=== PATIENT | male | born 1940 | race Caucasian/White ===

== ENCOUNTER 2023-04-26 12:00 | Outpatient (RCR) | payer MEDICARE, SELFPAY | END 2023-04-26 13:01 | disposition home or self-care (01) | LOC: HO.PT 12:00 | PROVIDERS: PCP Internal Medicine; Visit Provider Nurse Practitioner Adult Health | DX: M25.551 Pain in right hip (principal); M25.552 Pain in left hip | CPT/HCPCS: 97110; 97140; 97161 ==

== ENCOUNTER 2024-11-19 15:38 | Outpatient (AMB) | payer MEDICARE, SELFPAY ==
--- NOTE | 2024-11-19 15:38 | A.OFFPC_ITS ---
Vital Signs 11/19/24 15:41 Height 5 ft 10 in Weight 184 lb BMI 26.4 BP 134/76 Respiration 14 Pulse 72 Pulse Source Pulse Oximeter Temp 97.8 F Temp Source Temporal Artery Scan Pulse Oximetry (%) 97 Oxygen Delivery Method Room Air Intake Visit Reasons: 6 month follow up Stakes Player Required: No Accompanied by: Self / Same As Patient Allergies Sulfa (Sulfonamide Antibiotics) Allergy (Mild, Verified 11/19/24 15:45) Rash Tobacco use date assessed: 11/19/24 Fall risk assessment: 1 Fall in past year Last assessed Fall Risk: 11/19/24 Dental Screening Dental Screen Date: 11/19/24 Did you have a dental visit in the last 12 months?: Yes Did you have a dental problem in the last 6 months where you did not have access to dental care?: No Was dental information given to patient?: Patient has dentist [facility] Medical History (Updated 11/19/24 @ 16:10 by Jere Aparicio MD) Insomnia Hyperlipidemia Prostate cancer Surgical History History of colonoscopy (~05/23/14) Family History (Updated 11/19/24 @ 15:39 by LAMONTE Mcfarlane) Father No problems noted. Mother No problems noted. Social History (Updated 11/19/24 @ 15:48 by LAMONTE Mcfarlane) Housing: Condominium Alcohol intake: current Alcohol intake frequency: does not drink Patient Tobacco Use Status: Never used Tobacco service: No Current occupational status: retired Cognitive needs: No Hearing needs: Yes (b/l hearing aids) Vision needs: Yes (reading glasses) Questionnaire PHQ-9 Over the last 2 weeks, how often have you been bothered by any of the following problems? 1. Little interest or pleasure in doing things: not at all 2. Feeling down, depressed, or hopeless: not at all 3. Trouble falling or staying asleep, or sleeping too much: not at all 4. Feeling tired or having little energy: not at all 5. Poor appetite or overeating: not at all 6. Feeling bad about yourself - or that you are a failure or have let yourself or your family down: not at all 7. Trouble concentrating on things, such as reading the newspaper or watching television: not at all 8. Moving or speaking so slowly that other people could have noticed. Or the opposite - being so fidgety or restless that you have been moving around a lot more than usual: not at all 9. Thoughts that you would be better off or of hurting yourself in some way: not at all Total score: 0 Source: Developed by Drs. Yrn Guajardo, Melida Hernandez, Brett Hughes and colleagues, with an educational susana from [email or web address]. Thrive Questionnaire Date Thrive assessed: 11/19/24 I am a: Patient What is your living situation today?: I have a steady place to live Within the past 12 months, did the food you bought not last and you didn't have the money to get more?: Never true Within the past 12 months, did you worry whether your food would run out before you got money to buy more?: Never true Do you have trouble paying for medicines?: No Do you have trouble getting transportation to medical appointments?: No Do you have trouble paying your heating and electricity bill?: No Do you have trouble taking care of your child, family member or friend?: No Do you have trouble with day-to-day activities such as bathing, preparing meals, shopping, managing finances, etc.?: No Are you currently unemployed and looking for a job?: No Are you interested in more education?: No Please select the resources that you would like help with: None THRIVE Score: 0 AUDIT C Alcohol Use Questionnaire (AUDIT-C) 1. How often do you have a drink containing alcohol?: Never 3. How often do you have six or more drinks on one occasion?: Never Total Score: 0 ALPA-7 AMB Questionnaire ALPA-7 Date ALPA - 7 assessed: 11/19/24 Feeling nervous, anxious, or on edge: 0 = Not at all Not being able to stop or control worryin = Not at all Worrying too much about different things: 0 = Not at all Trouble relaxin = Not at all Being so restless that it is hard to sit still: 0 = Not at all Becoming easily annoyed or irritable: 0 = Not at all Feeling afraid as if something awful might happen: 0 = Not at all Total ALPA-7 score (0-4 normal; 5-9 mild; 10-14 moderate; 15-21 severe): 0 Source: Developed by Drs. Yrn Guajardo, Melida Hernandez, Brett Hughes and colleagues, with an educational susana from [email or web address]. Physical exam (Primary Care) Vital Signs: Last Vital Signs Temp 97.8 F 11/19/24 15:41 Pulse 72 11/19/24 15:41 Resp 14 11/19/24 15:41 BP 134/76 11/19/24 15:41 Pulse Ox 97 11/19/24 15:41 Oxygen Delivery Method Room Air 11/19/24 15:41 BMI result Body Mass Index 26.4 Tobacco/Smoking Status: Tobacco use Status Tobacco use date assessed 11/19/24 11/19/24 15:40 Patient Tobacco Use Status Never used Tobacco 11/19/24 15:48 PHQ-9: PHQ-9 Score PHQ-9: Total score 0 11/19/24 15:48 Thrive Assessment: Date of Thrive Assessment Date Thrive assessed 11/19/24 11/19/24 15:40 Coding Level of Care Code New Pt Level 4 (63982) Complex EM visit Add On G2211 Diagnoses Prostate cancer C61 Hyperlipidemia E78.5 Insomnia G47.00 Assessment & Plan Assessment & Plan (1) Prostate cancer: Code(s): C61 - Malignant neoplasm of prostate Category: Medical Plan: Patient sees a urologist at [facility] in [place]. Continue current meds (2) Hyperlipidemia: Code(s): E78.5 - Hyperlipidemia, unspecified Category: Medical Plan: BW ordered, based on results, meds will be adjusted. (3) Insomnia: Code(s): G47.00 - Insomnia, unspecified Category: Medical Plan: Continue on Temazepam Plan History of Present Illness The patient is an 84-year-old male presenting with a recent acute upper respiratory infection, believed to be a cold affecting the sinuses and lungs, which commenced approximately one week ago. He indicates that the symptoms have been slowly improving without progression to more severe respiratory compromise. Temazepam has been used intermittently to manage sleep disturbances associated with the infection. The patient's past medical history includes hyperlipidemia, managed with ezetimibe, and benign prostatic hyperplasia, treated with a procedure by [employer]. Post-procedure, some relief was noted though medication continuation is necessary. Consequent to his BPH, he continues with tamsulosin to manage symptoms. Cataract surgery was previously performed approximately a year prior, resulting in resolved vision issues. Social History - Retired mechanical service representative, previously self-employed - Regular daily exercise routine, including walking - Engages in grocery shopping independently - Resides with spouse, three children reside at a distance - Does not smoke - Enjoys using computers for leisure, watching movies on a large screen - Participates in recreational shooting Review of Systems - Respiratory: Reports sinus and lung congestion, improving slowly - Neurological: Denies difficulty with vision post-cataract surgery; reports good driving capabilities, including night driving - Urological: Reports stable urinary function post-procedural intervention, continues tamsulosin usage - General: Reports using temazepam for aiding sleep due to recent illness Physical Exam General: Cooperative and healthy appearing Nutritional Appearance: Well nourished Orientation/consciousness: Patient oriented x3 Limitations: No limitations Head: Normal to inspection General: Appearance normal, both eyes and all related structures Neck: Normal visual inspection Chest: Normal palpation of entire chest wall Respiratory: Crackly at the base ormal respiratory effort Neurology: Patient oriented x3 Results Plan The patient's acute upper respiratory infection is resolving, and current management does not require additional medication interventions. The patient's chronic conditions remain stable under the current medication regimen, with ezetimibe continued for hyperlipidemia and tamsulosin ongoing for benign prostatic hyperplasia. Blood work is recommended given the time since last testing. No further prescriptions are needed apart from health maintenance. Patient was informed and verbally consented to the use of an ambient scribe for clinic note documentation during this visit. Discussion Notes I explained that the patient's respiratory symptoms should resolve with conservative management and reassured him that his current medications are managing his chronic conditions well. Blood work will be ordered to assess his health status, and arrangements can be made within the local [facility] system. We discussed the importance of regular health check-ups and staying active as part of maintaining good health. I advised that temazepam usage should remain as needed, with no daily usage expected. Follow-up in six months was determined appropriate unless new concerns arise sooner. Patient Instructions - Continue current medications: ezetimibe and tamsulosin - Use temazepam sparingly for sleep as needed - Arrange for blood work within [facility] system - Monitor respiratory symptoms; anticipate improvement - Maintain regular exercise routine - Schedule follow-up in six months or sooner if needed - Call the pharmacy for prescription needs, which will notify me Orders: Orders Basic Metabolic Panel Today C61 - Malignant neoplasm of prostate, E78.5 - Hyperlipidemia, unspecified, G47.00 - Insomnia, unspecified Liver Panel Today C61 - Malignant neoplasm of prostate, E78.5 - Hyperlipidemia, unspecified, G47.00 - Insomnia, unspecified Lipid Panel Today C61 - Malignant neoplasm of prostate, E78.5 - Hyperlipidemia, unspecified, G47.00 - Insomnia, unspecified UA and rflx microscopic Today C61 - Malignant neoplasm of prostate, E78.5 - Hyperlipidemia, unspecified, G47.00 - Insomnia, unspecified Complete Blood Count no Diff Today C61 - Malignant neoplasm of prostate, E78.5 - Hyperlipidemia, unspecified, G47.00 - Insomnia, unspecified Thyroid Stimulating Hormone Today C61 - Malignant neoplasm of prostate, E78.5 - Hyperlipidemia, unspecified, G47.00 - Insomnia, unspecified
[2024-11-19 15:41] VITALS: BP 134/76; PULSE 72; RESP 14; TEMP 36.6; O2SAT 97; BMI 26.4
--- OUTSIDE RECORDS SUMMARY | 2024-11-19 18:27 | XMS_ITS | Clinical Summary ---
Author Organization [address] [place] [address] [place] [phone] Phone Care Team Providers Care Sprinkling System Installer Name Role Phone Yrn Calderon DO Primary Care Provider [phone] Allergies Active Allergy Reactions Criticality Noted Date Comments Sulfa (Sulfonamide Antibiotics) 09/21/2020 Other Reaction(s): rash, Rash/Dermatitis Bactrim Medications ezetimibe (ZETIA) 10 mg tablet Take 1 tablet (10 mg total) by mouth 1 (one) time each day. Active aspirin 81 mg EC tablet Take 1 tablet (81 mg total) by mouth 1 (one) time each day. Active tamsulosin (FLOMAX) 0.4 mg 24 hr capsule Take 0.4 mg by mouth daily. Take 30 mins after same meal every day. Active temazepam (RESTORIL) 15 mg capsule Take 15 mg by mouth at bedtime as needed. Active Active Problems Problem Noted Date Diagnosed Date Encounter for loop recorder at end of battery li fe 08/07/2024 Atrial flutter (CMS/HCC V24, CMS/HCC V28) 2020 Overview (07/16/2024): Paroxysmal atrial flutter and atrial fibrillation. Minimal burden. Implantable loop recorder showed 24 episodes lifelong but none within the past year. Chadsvasc is elevated based on history of carotid disease and age over 75. Last Assessment & Plan: This 83-year-old gentleman continues to have relatively brief episodes of self terminating atrial arrhythmias. I talked him at length about potentially using a beta-reuben or calcium channel reuben for rate control given some of these episodes can get as high as 170 bpm. I also talked about the pros and cons of anticoagulation. He is very much against using an oral anticoagulant due to prior history of hematoma formation in his leg was quite a difficult illness to get over. He is open to a watchman implant and certainly appears to be a good candidate having an elevated [id number] score of 4 for age and prior TIA and evidence of atrial fibrillation/flutter. I went through that procedure in detail discussing the complications and alternatives and he is going to take some literature and let me know if he wants to proceed. We will continue to use his implantable loop recorder to track the arrhythmia burden and will add rate control if he has either symptomatic episodes or more prolonged episodes of atrial fibrillation. Palpitations 02/10/2020 Overview (07/16/2024): Last Assessment & Plan: Minimal and well-tolerated. Chest pain 05/22/2018 Overview (07/16/2024): Last Assessment & Plan: Continues to get chest discomfort but his symptoms are unchanged. He recently had a normal nuclear stress test. If anything changes he should call us. Carotid artery occlusion 11/14/2017 Overview (07/16/2024): 2017 US-TO R; HIGH GRADE L-VASC SX Pure hypercholesterolemia 11/14/2017 Overview (07/16/2024): 06/2016 NUKE SL INF ISCH EF 55 Encounters Date Type Department Care Team Description 11/02/2024 12:15 AM EDT Ancillary Procedure [facility] Cardiology [facility] [address] [place] [address] 11/02/2024 Ancillary Procedure [facility] Cardiology [facility] [address] [place] [address] 11/01/2024 11:40 PM EDT Ancillary Procedure [facility] Cardiology [facility] [address] [place] [address] 11/01/2024 9:35 PM EDT Ancillary Procedure [facility] Cardiology [facility] - [address] [place] [address] 11/01/2024 7:25 PM EDT Ancillary Procedure [facility] - [address] [place] [address] 11/01/2024 4:45 PM EDT Ancillary Procedure [facility] - [address] [place] [address] 08/21/2024 Telephone [facility] - [address] [place] [address] Babar Pena MD Procedure (ILR Removal ) from Last 3 Months Social History Tobacco Use Types Packs/Day Years Used Date Smoking Tobacco: Never Smokeless Tobacco: Never Alcohol Use Standard Drinks/Week Comments Yes 0 (1 standard drink = 0.6 oz pur e alcohol) Sex and Gender Information Value Date Recorded Sex Assigned at Not on file Legal Sex Male 11:57 AM EST Gender Identity Not on file Sexual Orientation Not on file Obstetrics History Last Filed Vital Signs Vital Sign Reading Time Taken Comments Blood Pressure 128/60 08/06/2024 1:11 PM EST Pulse 64 08/06/2024 1:11 PM EST Temperature - - Respiratory Rate - - Oxygen Saturation 98% 08/06/2024 1:11 PM EST Inhaled Oxygen Concentration - - Weight 83.5 kg (184 lb) 08/06/2024 1:11 PM EST Height 180.3 cm (5' 11 ) 08/06/2024 1:11 PM EST Body Mass Index 25.66 08/06/2024 1:11 PM EST Plan of Treatment Health Maintenance Due Date Last Done Comments DTaP,Tdap,and Td Vaccines (1 - Tdap) 1959 RSV Immunization Adult Patients (1 - 1-dose 75+ series) 2015 COVID-19 Vaccine (3 - Pfizer risk series) 11/28/2020 10/31/2020, 09/07/2020 Depression Screening 06/28/2022 Falls Risk Assessment 06/28/2022 Medicare Annual Wellness Visit 06/28/2022 Social Influencers of Health Screening 06/28/2022 Influenza Vaccine (Season Ended) 2025 05/23/2023, 05/20/2021, 05/04/2020, Additional history exists Cholesterol Screening (Lipid Panel) 06/23/2029 06/23/2024, 05/10/2024, 05/25/2023 Pneumococcal Vaccine: 50+ Years Completed 01/06/2016, 09/22/2008 Zoster Vaccines Completed 03/18/2019, 01/10/2019 HIB Vaccines Aged Out No longer eligi ble based on patient's age to complete this topic HPV Vaccines Aged Out No longer eligi ble based on patient's age to complete this topic Hepatitis A Vaccines Aged Out No long er eligible based on patient's age to complete this topic Hepatitis B Vaccines Aged Out No long er eligible based on patient's age to complete this topic IPV Vaccines Aged Out No longer eligi ble based on patient's age to complete this topic MMR Vaccines Aged Out No longer eligi ble based on patient's age to complete this topic Meningococcal ACWY Vaccine Aged Out N o longer eligible based on patient's age to complete this topic Meningococcal B Vaccine Aged Out No l onger eligible based on patient's age to complete this topic RSV Immunization Patients Under 20 months Aged Out No longer eligible based on patient's age to complete this topic Varicella Vaccines Aged Out No longer eligible based on patient's age to complete this topic Medical Devices Implanted Type Area Machine Farmworker Device Identifier Shelf Expiration Date Model / Serial / Lot Medt-Card [id number] Implanted:09/28 (Quantity not on file) Cardiac Loop Recorder [employer] - CARDIAC RHYTH-CRDM [id number] / [id number] / Procedures Procedure Name Priority Date/Time Associated Diagnosis Comments CARDIAC DEVICE CHECK- REMOTE- MURJ Routine 11/02/2024 12:12 AM EDT CARDIAC DEVICE CHECK- REMOTE- MURJ Routine 11/01/2024 11:54 PM EDT CARDIAC DEVICE CHECK- REMOTE- MURJ Routine 11/01/2024 11:38 PM EDT CARDIAC DEVICE CHECK- REMOTE- MURJ Routine 11/01/2024 9:32 PM EDT CARDIAC DEVICE CHECK- REMOTE- MURJ Routine 11/01/2024 7:22 PM EDT CARDIAC DEVICE CHECK- REMOTE- MURJ Routine 11/01/2024 4:41 PM EDT LIPID PANEL Routine 05/25/2023 from Last 3 Months or Most Recently Relevant to Health Maintenance Results * Cardiac device check - Remote- MURJ (11/02/2024 12:12 AM EDT) Only the most recent of6 resultswithin the time period is included. Date Time Interrogation Session [id number] CV DEVICE CHECK Type Interrogation Session Remote CV DEVICE CHECK Implantable Pulse Generator Machine Farmworker MDT CV DEVICE CHECK Implantable Pulse Generator Type ILR CV DEVICE CHECK Implantable Pulse Generator Model [id number] CV DEVICE CHECK Implantable Pulse Generator Serial Number [id number] CV DEVICE CHECK Implantable Pulse Generator Implant Date [id number] CV DEVICE CHECK Battery Status Middle of Service CV DEVICE CHECK Atrial Tachy Statistic AT/AF [place] Percent 0.00 CV DEVICE CHECK Date of Service 2024-03-14 CV DEVICE CHECK Anatomical Region Laterality Modality Device Interroga tion 03/07/2024 12:0 5 AM EDT Impressions 03/14/2024 9:31 AM EDT Normal Remote: With Events * Events or Alerts: 1- pt symptom report for AF/PAC's, similar to previous reports; no OAC per AVELINA note (JPM 8.6.24) * This is a normal remote diagnostic device check * Battery data was reviewed * Battery status: OK, * Presenting rhythm reviewed * Heart Rate Histograms reviewed Narrative Procedure Note Nury Barksdale NP - 11/02/2024 IMPRESSION: Normal Remote: With Events * Events or Alerts: 1- pt symptom report for AF/PAC's, similar toprevious reports; no OAC per AVELINA note (JPM 8.6.24) * This is a normal remote diagnostic device check * Battery data was reviewed * Battery status: OK, * Presenting rhythm reviewed * Heart Rate Histograms reviewed Nury Barksdale MOTOR CARRIER INSPECTOR CV IMPLANTABLE CARDIAC DEVIC E PROCEDURES Final Result * Lipid panel (05/25/2023) LDL/HDL Ratio 0 Comment:abstracted, no inter pretation Triglycerides 0 mg/dL Comment:abstracted, no inter pretation Cholesterol 0 mg/dL Comment:abstracted, no inter pretation HDL 0 mg/dL Comment:abstracted, no inter pretation LDL Cholesterol 0 mg/dL Comment:abstracted, no inter pretation Blood Venous blood specimen / Unknown us Historical Provider LAB BLOOD ORDERABLES Tamanna l Result from Last 3 Months or Most Recently Relevant to Health Maintenance Insurance [employer] - [place] MEDICARE ADVANTAGE Care Teams Sprinkling System Installer Relationship Specialty Start Date End Date Yrn Calderon DO [address] [place] [phone] PCP - General Internal Medicine 08/26/20
--- OUTSIDE RECORDS SUMMARY | 2024-11-19 18:27 | XMS_ITS | Encounter Summary ---
Author Organization [facility] Address [address] [place] [phone] Phone Care Team Providers Care Attendance Clerk Name Role Phone Yrn Calderon DO Primary Care Provider Jerome Jackson MD Unavailable Yrn Calderon DO Unavailable Lalo Hills MD Unavailable [phone] Encounter Details Date Type Department Care Team (Late st Contact Info) Description 06/22/2024 Procedure [facility] Scan - [address] [address] Social History Tobacco Use Types Packs/Day Years Used Date Smoking Tobacco: Never Smokeless Tobacco: Never Alcohol Use Standard Drinks/Week Comments Not Currently 0 (1 standard drink = 0.6 oz pur e alcohol) Education Answer Date Recorded Are you interested in more education? Not on tatiana e 12/12/2022 Are you concerned about learning? Not on file 12/12/2022 No 12/12/2022 No 12/12/2022 Food Answer Date Recorded Within the past 6 months we worried whether our food would run out before we got money to buy more. Never True 06/23/2024 Within the past 6 months the food we bought just didn't last and we didn't have enough money to get more. Never True Residential Stability Answer Date Recor ded What is your housing situation today? I have antony sing 06/23/2024 How many times have you move d in the past 12 months? Zero (I did not move) 06/23/2024 Paying for Meds Answer Date Recorded Do you have trouble paying for medicines? No 06/23/2024 Paying Utility Bills Answer Date Record ed Do you have trouble paying your heating or elect ricity bill? No 06/23/2024 Transportation Answer Date Recorded Has the lack of transportati on kept you from medical appointments or from getting medications? No 06/23/2024 Digital Access Answer Date Recorded No 06/23/2024 Yes 06/23/2024 Do you have reliable internet access at home? Ye s 06/23/2024 Do you have a device (e.g., phone, tablet, computer) with a working camera? Yes 06/23/2024 Intimate Partner Violence Answer Date R ecorded Are you denied basic needs s uch as food, clothing, or medical care? No 06/22/2024 In the past 12 months have y ou been in a relationship with a person who hurts, threatens, or tries to control you? No 06/22/2024 Are you denied basic needs s uch as food, clothing, or medical care? No 06/22/2024 In the past 12 months have y ou been in a relationship with a person who hurts, threatens, or tries to control you? No 06/22/2024 Sex and Gender Information Value Date Recorded Sex Assigned at Male 11/30/2019 9:45 AM EDT Gender Identity Male 11/30/2019 9:45 AM EDT Sexual Orientation Not on file documented as of this encounter Plan of Treatment Upcoming Encounters Date Type Department Care Team (Late st Contact Info) Description 01/27/2025 10:00 AM EDT Office Visit [facility] [address] [place] [address] [address] Floor, [address] [place] [address] Yrn Sanchez MD, MS [address] [facility], [address] [place] [phone] documented as of this encounter Visit Diagnoses Not on filedocumented in this encounter Care Teams Attendance Clerk Relationship Specialty Start Date End Date Yrn Calderon DO [address] [place] [phone] PCP - General Internal Medicine 01/15/15 Jerome Jackson MD [address] [place] [address], [facility] [address] [place] [address] [email or web address] Historical LMR Provider 05/18/17 Yrn Calderon DO [address] [place] [id number] Historical LMR Provider 05/18/17 Lalo Hills MD [address] [place] [phone] [email or web address] Historical LMR Provider 05/18/17 documented as of this encounter Additional Source Comments The information contained in this document represents components of the legal health record. It is not the complete legal health record[facility]
--- OUTSIDE RECORDS SUMMARY | 2024-11-19 18:27 | XMS_ITS | Encounter Summary ---
Author Organization [facility] Address [address] [place] [address] Phone Care Team Providers Care Structural Steel Worker Apprentice Name Role Phone Yrn Calderon DO Primary Care Provider Jerome Jackson MD Unavailable Yrn Calderon DO Unavailable Lalo Hills MD Unavailable [phone] Reason for Referral * MRI/CAT Scan - Closed Specialty Diagnoses / Procedures Referred By Contac t Referred To Contact Radiology Diagnoses Bilateral hip pain Prostate cancer Procedures NM Bone Scan NM Bone Scan Yrn Calderon DO [address] [place] [address] Referral ID Status Reason Start Date Expiration Date Visits Re quested Visits Authorized [id number] Closed 06/08/2022 06/08/2023 2 2 Encounter Details Date Type Department Care Team (Late st Contact Info) Description 06/08/2022 Ancillary Orders Virtual Department [address] [place] [address] Yrn Calderon DO [address] [place] [address] Bilateral hip pain; Prostate cancer Social History Tobacco Use Types Packs/Day Years [...] Description 01/27/2025 10:00 AM EDT Office Visit [facility] [address] [facility] 3rd Floor, [address] [place] [address] Yrn Sanchez MD, MS 22 [facility], [address] [place] [address] [email or web address] documented as of this encounter Results * NM BONE SCAN WHOLE BODY (06/22/2022 12:50 PM EST) Anatomical Region Laterality Modality Shoulder Right, Shoulder Lef t, Arm Left, Arm Right, Elbow Left, Elbow Right, Forearm Left, Forearm Right, Wrist Right, Wrist Left, Hand Left, Hand Right, Hip Left, Hip Right, Hip Bilateral, Thigh Left, Thigh Right, Knee Left, Knee Right, Knee Bilateral, Leg Left, Leg Right, Ankle Left, Ankle Right, Foot Left, Foot Right, Pelvis Nucle ar Medicine 06/27/2022 8:13 AM EST Impressions 06/27/2022 8:31 AM EST No scintigraphic findings suspicious for osseous metastatic disease. No explanation for hip pain. Narrative 06/27/2022 8:31 AM EST EXAM: NM BONE SCAN WHOLE BODY Radionuclide bone scan: HISTORY: Bilateral hip pain, prostate malignancy. TECHNIQUE: ?? 26 mCi technetium 99m MDP was injected. ??Scans were performed more than two hours later. ??Whole body images were acquired and appropriate spot views were obtained based upon review of the whole body images. COMPARISON: CT angiogram abdomen and pelvis 06/17/2021, pelvis x-ray 06/21/2022. FINDINGS: ?? There are no scintigraphic findings suspicious for osseous metastatic disease. Periarticular foci of uptake at the medial aspect of each wrist in the region of the right first MTP joint are in a distribution typical for degenerative change. Renal and soft tissue uptake are within expected range. Physiologic activity within the bladder. Procedure Note Agustín Ponce MD - 06/27/2022 EXAM: NM BONE SCAN WHOLE BODY Radionuclide bone scan: HISTORY: Bilateral hip pain, prostate malignancy. TECHNIQUE: 26 mCi technetium 99m MDP was injected. Scans were performed more thantwo hours later. Whole body images were acquired and appropriate spotviews were obtained based upon review of the whole body images. COMPARISON: CT angiogram abdomen and pelvis 06/17/2021, pelvis x-ray06/21/2022. FINDINGS: There are no scintigraphic findings suspicious for osseous metastaticdisease. Periarticular foci of uptake at the medial aspect of each wrist in theregion of the right first MTP joint are in a distribution typical fordegenerative change. Renal and soft tissue uptake are within expected range. Physiologicactivity within the bladder. IMPRESSION: No scintigraphic findings suspicious for osseous metastatic disease. Noexplanation for hip pain. Yrn Calderon DO G NM BONE SCAN * XR PELVIS AP INLET AND OUTLET 3 VIEWS (06/22/2022 11:33 AM EST) Anatomical Region Laterality Modality Pelvis Computed Radiogr aphy 06/22/2022 11:5 5 AM EST Impressions 06/22/2022 11:57 AM EST No ischial lesion or other significant bony abnormality identified to account for patient's symptoms. Narrative 06/22/2022 11:57 AM EST XR PELVIS AP INLET AND OUTLET 3 VIEWS COMPARISON: 06/17/2021 CT FINDINGS: AP, inlet, and outlet views were obtained. No fracture, subluxation, or other acute bony abnormality identified. No evidence of cortical erosions. 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 Multiple surgical coils demonstrated in the pelvis. No significant sacroiliac pathology. Procedure Note Anselmo Muñiz MD - 06/22/2022 XR PELVIS AP INLET AND OUTLET 3 VIEWS COMPARISON: 06/17/2021 CT FINDINGS: AP, inlet, and outlet views were obtained. No fracture, subluxation, orother acute bony abnormality identified. 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 Multiple surgicalcoils demonstrated in the pelvis. No significant sacroiliac pathology. IMPRESSION: No ischial lesion or other significant bony abnormality identified toaccount for patient's symptoms. Yrn aClderon DO IMG XR PELVIS documented in this encounter Visit Diagnoses Diagnosis Bilateral hip pain Pain in joint, pelvic region and thigh Prostate cancer Malignant neoplasm of prostate Bilateral hip pain Pain in joint, pelvic region and thigh Prostate cancer Malignant neoplasm of prostate Bilateral hip pain Pain in joint, pelvic region and thigh Prostate cancer Malignant neoplasm of prostate documented in this encounter Care Teams Structural Steel Worker Apprentice Relationship Specialty Start Date End Date Yrn Calderon DO [address] [place] [address] PCP - General Internal Medicine 01/15/15 Jerome Jackson MD [address] [place] [address], [facility] [address] [place] [address] [email or web address] Historical LMR Provider 05/18/17 Yrn Calderon DO [address] [place] [address] Historical LMR Provider 05/18/17 Lalo Hills MD [address] [place] [address] [email or web address] Historical LMR Provider 05/18/17 documented as of this encounter Additional Source Comments The information contained in this document represents components of the legal health record. It is not the complete legal health record.[facility]
--- OUTSIDE RECORDS SUMMARY | 2024-11-19 18:27 | XMS_ITS | Encounter Summary ---
Author Organization [facility] Address [address] [employer] [facility] [address] [place] [address] Phone Care Team Providers Care Box Person Name Role Phone Yrn Calderon DO Primary Care Provider Jerome Jackson MD Unavailable Yrn Calderon DO Unavailable [phone] Lalo Hills MD Unavailable [phone] Encounter Details Date Type Department Care Team (Late st Contact Info) Description 06/22/2024 Procedure Pass [facility], [address] [address] Social History Tobacco Use Types Packs/Day Years [...] Description 01/27/2025 10:00 AM EDT Office Visit [facility] [address] [place] [address] 3rd Floor, [address] [place] [address] Yrn Sanchez MD, MS 22 [facility], [address] [address] documented as of this encounter Visit Diagnoses Not on filedocumented in this encounter Care Teams Box Person Relationship Specialty Start Date End Date Yrn Calderon DO [address] [place] [address] PCP - General Internal Medicine 01/15/15 Jerome Jackson MD [address] [place] [address], [facility] [address] [place] [address] [email or web address] Historical LMR Provider 05/18/17 Yrn Calderon DO [address] [place] [address] Historical LMR Provider 05/18/17 Lalo Hills MD [address] [place] [address] [email or web address] Historical LMR Provider 05/18/17 documented as of this encounter Additional Source Comments The information contained in this document represents components of the legal health record. It is not the complete legal health record.[facility]
--- OUTSIDE RECORDS SUMMARY | 2024-11-19 18:27 | XMS_ITS | Encounter Summary ---
Author Organization [facility] Address [address] [facility] [address] [place] [address] Phone Care Team Providers Care Abseiling Instructor Name Role Phone Yrn Calderon DO Primary Care Provider Jerome Jackson MD Unavailable Yrn Calderon DO Unavailable [phone] Baljeet Alexander MD Unavailable Dianna London MD Unavailable [phone] Lalo Hills MD Unavailable [phone] Encounter Details Date Type Department Care Team (Late st Contact Info) Description 06/17/2021 Procedure Pass [facility], Ct Scan - [address] [address] Social History Tobacco Use Types Packs/Day Years [...] Description 01/27/2025 10:00 AM EDT Office Visit [facility] [address] [place] [address] 3rd Floor, [address] [place] [address] Yrn Sanchez MD, MS [address] [address] documented as of this encounter Visit Diagnoses Not on filedocumented in this encounter Care Teams Abseiling Instructor Relationship Specialty Start Date End Date Yrn Calderon DO [address] [place] [address] PCP - General Internal Medicine 01/15/15 Jerome Jackson MD [address] [address] Historical LMR Provider 05/18/17 Yrn Calderon DO [address] [place] [address] Historical LMR Provider 05/18/17 Baljeet Alexander MD [address] [address] [email or web address] Historical LMR Provider 05/18/17 08/07/21 Dianna London MD [address] [place] [address] [facility], [place] [address] Historical LMR Provider 05/18/17 08/07/21 Lalo Hills MD [address] [place] [address] [email or web address] Historical LMR Provider 05/18/17 documented as of this encounter Additional Source Comments The information contained in this document represents components of the legal health record. It is not the complete legal health record.[facility]
--- OUTSIDE RECORDS SUMMARY | 2024-11-19 18:27 | XMS_ITS | Encounter Summary ---
Author Organization [facility] Address Formerly [facility], [facility] [address] [place] [address] Phone Care Team Providers Care Toddler Caregiver Name Role Phone Yrn Calderon DO Primary Care Provider [phone] Jerome Jackson MD Unavailable Yrn Calderon DO Unavailable Baljeet Alexander MD Unavailable [phone] Dianna London MD Unavailable [phone] Lalo Hills MD Unavailable [phone] Encounter Details Date Type Department Care Team (Latest Contact Info) Description 10/16/2017 Transcribe Orders [facility] [address] [place] [address] Yrn Calderon DO [address] [place], [place] [phone] Elevated PSA (Primary Dx) Social History Tobacco Use Types Packs/Day Years Used Date Smoking Tobacco: Never Alcohol Use Standard Drinks/Week Comments Not Asked 0 (1 standard drink = 0.6 oz pur e alcohol) Sex and Gender Information Value Date Recorded Sex Assigned at Male 11/30/2019 9:45 AM EDT Gender Identity Male 11/30/2019 9:45 AM EDT Sexual Orientation Not on file documented as of this encounter Plan of Treatment Upcoming Encounters Date Type Department Care Team (Late st Contact Info) Description 01/27/2025 10:00 AM EDT Office Visit [facility] [address] 3rd Floor, [address] [place] [address] Yrn Sanchez MD, MS 22 [facility], [address] [place] [address] [email or web address] documented as of this encounter Results * (ABNORMAL) PSA, free and total (10/16/2017 12:04 PM EDT) PSA, TOTAL 15.4(H) <=6.5 ng/mL [facility] FREE PSA 2.8 ng/mL [facility] FREE/TOT PSA RATIO SEE NOTE ratio [facility] Comment: (NOTE) Ratio not calculated because clinical usefulness is not ?? defined except in range of total PSA 4.0-10.0 ng/mL. ADDITIONAL INFORMATION The testing method is an electrochemiluminescence assay manufactured by [employer] and performed on the Modular or Vel system. Values obtained with different assay methods or kits may be different and cannot be used interchangeably. Test results cannot be interpreted as absolute evidence for the presence or absence of malignant disease. Blood 10/16/2017 12:0 4 PM EDT 10/16/2017 12:07 PM EDT Yrn Calderon DO LAB BLOOD ORDERABLES [facility] [address] [place] [address] documented in this encounter Visit Diagnoses Diagnosis Elevated PSA- Primary Elevated prostate specific antigen (PSA) documented in this encounter Care Teams Toddler Caregiver Relationship Specialty Start Date End Date Yrn Calderon DO [address] [place] [address] PCP - General Internal Medicine 01/15/15 Jerome Jackson MD [address] [place] [address], [address] [place] [address] [place] [address] [email or web address] Historical LMR Provider 05/18/17 Yrn Calderon DO [address] [place] [address] Historical LMR Provider 05/18/17 Baljeet Alexander MD [address] [place] [address] [address] [place] [address] [email or web address] Historical LMR Provider 05/18/17 08/07/21 Dianna London MD [address] [place] [address] [facility], [place] [address] [email or web address] Historical LMR Provider 05/18/17 08/07/21 Lalo Hills MD [address] [place] [address] [email or web address] Historical LMR Provider 05/18/17 documented as of this encounter Additional Source Comments The information contained in this document represents components of the legal health record. It is not the complete legal health record.[facility]
--- OUTSIDE RECORDS SUMMARY | 2024-11-19 18:27 | XMS_ITS | Encounter Summary ---
Author Organization [facility] Address [address] [place] [address] Phone Care Team Providers Care Machine Cloth Measurer Name Role Phone Yrn Calderon DO Primary Care Provider Jerome Jackson MD Unavailable Yrn Calderon DO Unavailable Baljeet Alexander MD Unavailable Dianna London MD Unavailable Lalo Hills MD Unavailable [phone] Encounter Details Date Type Department Care Team (Latest Contact Info) Description 02/26/2021 Transcribe Orders Virtual Department [address] [place] [address] Ester [place]hour[place] [address] [address] [email or web address] Hydrocele, unspecified hydrocele type (Primary Dx) Social History Tobacco Use Types [...] Description 01/27/2025 10:00 AM EDT Office Visit [facility] [address] [place] [address] 3rd Floor, [address] [place] [address] Yrn Sanchez MD, MS 22 [facility], [address] [address] [email or web address] documented as of this encounter Visit Diagnoses Diagnosis Hydrocele, unspecified hydrocele type- Primary documented in this encounter Care Teams Machine Cloth Measurer Relationship Specialty Start Date End Date Yrn Calderon DO [address] [place] [address] PCP - General Internal Medicine 01/15/15 Jerome Jackson MD [address] [place] [address] [email or web address] Historical LMR Provider 05/18/17 Yrn Calderon DO [address] [place] [address] Historical LMR Provider 05/18/17 Baljeet Alexander MD [address] [place] [address] [email or web address] Historical LMR Provider 05/18/17 08/07/21 Dianna London MD [address] [place] [address] [facility], [place] [address] [email or web address] Historical LMR Provider 05/18/17 08/07/21 Lalo Hills MD [address] [place] [address] [email or web address] Historical LMR Provider 05/18/17 documented as of this encounter Additional Source Comments The information contained in this document represents components of the legal health record. It is not the complete legal health record.[facility]
--- OUTSIDE RECORDS SUMMARY | 2024-11-19 18:27 | XMS_ITS | Encounter Summary ---
Author Organization [facility] Address [address] [employer] [facility] [address] [place] [address] Phone Care Team Providers Care Spray Mixer Name Role Phone Yrn Calderon DO Primary Care Provider Jerome Jackson MD Unavailable Yrn Calderon DO Unavailable [phone] Baljeet Alexander MD Unavailable [phone] Dianna London MD Unavailable Lalo Hills MD Unavailable [phone] Encounter Details Date Type Department Care Team (Late st Contact Info) Description 05/26/2020 Procedure Pass [facility] [place] [id number] Social History Tobacco Use Types Packs/Day Years [...] Description 01/27/2025 10:00 AM EDT Office Visit [facility] [address] [place] [address] 3rd Floor, [address] [place], [place] [phone] Yrn Sanchez MD, MS 22 [facility], [address] [place] [address] [email or web address] documented as of this encounter Visit Diagnoses Not on filedocumented in this encounter Care Teams Spray Mixer Relationship Specialty Start Date End Date Yrn Calderon DO [address] [place] [address] PCP - General Internal Medicine 01/15/15 Jerome Jackson MD [address] [place] [address], [address] [place] [address] [email or web address] Historical LMR Provider 05/18/17 Yrn Calderon DO [address] [place] [address] Historical LMR Provider 05/18/17 Baljeet Alexander MD [address] [place] [address] [address] [place] [address] [email or web address] Historical LMR Provider 05/18/17 08/07/21 Dianna London MD [address] [place] [address] [facility], [facility] [place] [address] Historical LMR Provider 05/18/17 08/07/21 Lalo Hills MD [address] [place] [address] [email or web address] Historical LMR Provider 05/18/17 documented as of this encounter Additional Source Comments The information contained in this document represents components of the legal health record. It is not the complete legal health record.[facility]
--- OUTSIDE RECORDS SUMMARY | 2024-11-19 18:27 | XMS_ITS | Clinical Summary ---
Author Organization [facility] Address [address] [facility] [address] [place] [address] Phone Care Team Providers Care Fishing Captain Name Role Phone Yrn Calderon DO Primary Care Provider Jerome Jackson MD Unavailable [phone] Yrn Calderon DO Unavailable [phone] Lalo Hills MD Unavailable [phone] Allergies Active Allergy Reactions Criticality Noted Date Comments Fluoxetine Anxiety Low 07/27/2022 Other reaction(s): anxiety Sulfa (Sulfonamide Antibiotics) 02/04/2015 Medications Medication Sig Dispensed Refills Start Date End Date Status temazepam (RESTORIL) 15 mg capsule Take 15 mg by mouth nightly as needed for sleep. Active aspirin 81 mg chewable tablet Take 1 tablet by mouth daily. Active tamsulosin (FLOMAX) 0.4 mg Cap Take 0.4 mg by mouth daily. 12/09/2019 Active ezetimibe (ZETIA) 10 mg tablet 01/25/2023 Active Active Problems Problem Noted Date Diagnosed Date Vertigo 06/22/2024 Assessment & Plan (06/23/2024 10:51 AM EST): MRI negative for acute abnormality, moderate chronic small vessel ischemic changes seen and few scattered peripheral microhemorrhages nonspecific in etiology, redemonstrated chronically occluded right ICA Symptoms markedly improved overnight Assessment & Plan (06/23/2024 9:55 AM EST): MRI negative for acute abnormality, moderate chronic small vessel ischemic changes seen and few scattered peripheral microhemorrhages nonspecific in etiology, redemonstrated chronically occluded right ICA Symptoms markedly improved overnight [facility] neurology recommended MRI, aspirin. If MRI positive recommended dual antiplatelet therapy. Will follow-up with [facility] neurologist today for further advice and diagnostic opinion and await PT and OT consults Assessment & Plan (06/22/2024 1:30 PM EST): Patient presents with symptomatic vertigo-room spinning, onset when he opened his eyes upon awakening this morning. He has never had similar symptoms in the past. 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 He has undergone left CEA. 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 In the ED, he is able to provoke symptoms by standing or sitting. On exam, once I sat him up he did have several beats of left-sided horizontal nystagmus. He was feeling symptomatic at that time. Otherwise the exam was nonfocal. [facility] neurology was called, note pending. Recommended MRI, continue home aspirin no new therapy. Call with MRI results. We will initiate the stroke workup with MRI, stroke labs, neurochecks, PT, OT, echocardiogram if available, registered nurse cardiac telemetry. Patient has known history of atrial flutter for which anticoagulation was held due to fall risk per my attending MD BPH (benign prostatic hyperplasia) 06/22/2024 Assessment & Plan (06/23/2024 9:55 AM EST): Tamsulosin Assessment & Plan (06/22/2024 1:30 PM EST): Denies acute symptoms, continue Flomax DEDE (obstructive sleep apnea) 01/17/2022 Assessment & Plan (06/23/2024 9:55 AM EST): CPAP Assessment & Plan (06/22/2024 1:30 PM EST): Patient's family member will bring his CPAP, recent pulmonary notes are in the chart CPAP (continuous positive airway pressure) carole dence 01/17/2022 Hypersomnia 01/17/2022 History of transient ischemic attack (TIA) 08/05 Typical atrial flutter 05/26/2020 Assessment & Plan (06/23/2024 9:55 AM EST): Not anticoagulated as patient has had severe bleeding events and recurrent falls Assessment & Plan (06/22/2024 1:30 PM EST): As above, patient is not anticoagulated. He is currently off of the registered nurse cardiac telemetry in the ED, heart sounds are regular, twelve-lead EKG showed normal sinus rhythm Assessment & Plan (05/26/2020 4:05 PM EDT): He presented to [facility] with his first episode of atrial fibrillation RVR on May 21. He was successfully cardioverted. He was started on an anticoagulant. His ventricular response was as high as the 150s. I did start him on 25 mg of metoprolol succinate. I have ordered an echocardiogram. I have arranged for follow-up with an acoustical tile carpenters supervisor to discuss more long-term management of his atrial fibrillation. Palpitations 02/10/2020 Assessment & Plan (05/12/2020 1:37 PM EDT): Minimal and well-tolerated. Assessment & Plan (02/10/2020 2:29 PM EDT): Denying any current symptoms. Chest pain 05/22/2018 Assessment & Plan (05/26/2020 4:06 PM EDT): Continues to get chest discomfort but his symptoms are unchanged. He recently had a normal nuclear stress test. If anything changes he should call us. Assessment & Plan (05/12/2020 1:37 PM EDT): Cannot 100% certainty exclude coronary disease. I suggested that should his pattern change in any way that I would definitely move to angiography just to be certain. For now he is doing well and I have not changed any medications. He understands that I will retire shortly and he will follow-up with one of my colleagues Assessment & Plan (02/10/2020 2:38 PM EDT): Patient continues to endorse infrequent chest discomfort located in the middle of his chest with exertion. We did discuss a diagnostic cardiac catheterization as his nuclear stress test was not predictive of ischemia at this time. However, due to his history and his nonspecific symptoms, I did speak with him about that option. However, at this time he declined any further testing stating that his symptoms were not progressive. Assessment & Plan (01/20/2020 12:24 PM EDT): He is having chest discomfort with activity which he has noticed is occurring more frequently. He tells me that it is only with activity and never at rest but does not occur every time he exerts. He goes to the gym and uses the elliptical with no discomfort. However, sometimes when walking up hills he gets discomfort. I will get a nuclear stress test. He had 1 years ago which did show some inferior ischemia. EKG in the office today is normal. I have asked him to refrain from taking in any caffeine products for 12 hours prior to testing. No med holds. I will follow-up with him after testing. Assessment & Plan (05/22/2018 12:30 PM EDT): As above I will continue to monitor his episodes of chest discomfort and he knows to call if his pattern changes. Carotid artery occlusion 11/14/2017 Overview (11/14/2017): 2017 US-TO R; HIGH GRADE L-VASC SX Assessment & Plan (06/23/2024 9:55 AM EST): CT showed new stenosis V3 V4 segment left vertebral, chronically occluded RCA similar to previous and interval left CEA with patent left ICA, continue ezetimbe and aspirin Assessment & Plan (06/22/2024 1:30 PM EST): History as noted above with changes on current CT showing new stenosis V3 V4 segment left vertebral, chronically occluded RCA similar to previous and interval left CEA with patent left ICA, continue ezetimbe and aspirin Assessment & Plan (05/26/2020 4:06 PM EDT): Is a history of carotid artery disease and a carotid endarterectomy earlier this year. He is doing well. We will continue to optimize his risk factors. Blood pressure today is normal. Continue aspirin lifelong. He is appropriately on a statin. Assessment & Plan (02/10/2020 2:31 PM EDT): He has a history of carotid artery disease and a recent left carotid endarterectomy by Dr. Koch whom he still follows up with routinely. He denies worsening symptoms at this time. Assessment & Plan (01/20/2020 12:23 PM EDT): Is a history of carotid artery disease. He has had a total occlusion on the right for many years. He recently had a left carotid endarterectomy by Dr. Koch. He will continue to follow up with them routinely. He had a CVA prior to his carotid endarterectomy. Assessment & Plan (05/28/2019 11:37 AM EDT): As above follows up with vascular surgery. Exam is unchanged with bilateral bruits louder on the left. Assessment & Plan (11/26/2018 12:10 PM EDT): Being followed by the vascular surgeons. I am asked him to have ABIs done because of his complaint of slow healing although I think it is unlikely he will have high- grade disease. Assessment & Plan (11/15/2017 2:06 PM EDT): As mentioned he follows up frequently with the vascular surgeons who were watching the left side. Pure hypercholesterolemia 11/14/2017 Overview (11/14/2017): 06/2016 NUKE SL INF ISCH EF 55 Assessment & Plan (06/23/2024 10:50 AM EST): Continue ezetimbe Assessment & Plan (06/23/2024 9:55 AM EST): Continue ezetimbe Assessment & Plan (06/22/2024 1:30 PM EST): Continue ezetimbe Assessment & Plan (05/12/2020 1:38 PM EDT): Good profile with LDL and triglycerides in the 60s and HDL in the 80s. Assessment & Plan (02/10/2020 2:26 PM EDT): Cholesterol panel from 01/14/2020 shows HDL 85 and LDL 61. The patient should continue to optimize his cardiac risk factors. Continue atorvastatin 40 mg. Assessment & Plan (01/20/2020 12:22 PM EDT): He has a history of hyperlipidemia. However, his HDL is very high. He is on 40 mg of atorvastatin and his LDL is at goal. Assessment & Plan (05/28/2019 11:36 AM EDT): Well-controlled with a high HDL and low LDL (in the 60s). Can help would be suspicious that his HDLs may not be as protective as would like to think they are. Assessment & Plan (11/26/2018 12:09 PM EDT): Recent profile includes an LDL of 70, HDL of 72 and triglycerides 69. Creatinine 1.1 with a BUN of 18 and a potassium of 4.0 Assessment & Plan (05/22/2018 12:28 PM EDT): His numbers are much improved with an LDL that is now 70. HDL is in the 90s. Should his chest discomfort become more significant I would have a low threshold for sending him for angiography. There was a very minor abnormality on his nuclear scan. Assessment & Plan (11/15/2017 2:06 PM EDT): Recent profile includes an LDL of 91 with a remarkable HDL of 101 and triglycerides at 68. LFTs are normal. Creatinine is 1.0. I have taken the liberty of pushing his atorvastatin to 80 mg a day. I'll have his labs repeated in several months. Of note is that he did have a elevated PSA of 15 and I would refer that back to you for one of her workup would be appropriate. It was drawn at his request. Immunizations Name Administration Dates Next Due Zoster recombinant 03/13/2019,01/10/2019 Family History Medical History Relation Comments CV disease Father 2 Relation Status Comments Father 1 Father 2 Social History Tobacco Use Types Packs/Day Years Used Date Smoking Tobacco: Never Smokeless Tobacco: Never Tobacco Cessation:Counseling Given: Not Answered Alcohol Use Standard Drinks/Week Comments Not Currently [...] your housing situation today? I have antony leon 06/23/2024 How many times have you move [...] AM EDT Sexual Orientation Not on file Last Filed Vital Signs Vital Sign Reading Time Taken Comments Blood Pressure 144/82 06/23/2024 8:35 AM EST Pulse 74 06/23/2024 8:35 AM EST Temperature 36.7 ??C (98.1 ??F) 06/23/2024 8:35 AM ES T Respiratory Rate 18 06/23/2024 8:35 AM EST Oxygen Saturation 95% 06/23/2024 8:35 AM EST Inhaled Oxygen Concentration - - Weight 80.6 kg (177 lb 11.2 oz) 06/22/2024 6:51 PM EST Height 180.3 cm (5' 11 ) 06/22/2024 6:51 PM EST Body Mass Index 24.78 06/22/2024 6:51 PM EST Plan of Treatment Upcoming Encounters Date Type Department Care Team (Late st Contact Info) Description 01/27/2025 10:00 AM EDT Office Visit [facility] [address] [place] [address] 3rd Floor, [address] [place] [address] Yrn Sanchez MD, MS [address] [facility], [address] [place] [phone] [email or web address] Health Maintenance Due Date Last Done Comments Adult Td,Tdap Booster 1940 DEPRESSION SCREENING 1952 RSV VACCINE (1 - 1-dose 75+ series) 2015 INFLUENZA VACCINE (#1) 2024 0, 06/18/2019, 06/07/2018, Additional history exists COVID-19 VACCINE ( season) 2024 10/31/2020, 09/07/2020 LIPID PANEL 06/23/2025 06/23/2024, 04/30, 05/25/2023, Additional history exists PNEUMOCOCCAL VACCINES (50+ years) Completed 01/06/2016, 09/22/2008 ZOSTER VACCINES Completed 03/13/2019, 01/10/2019 HEPATITIS A VACCINES Aged Out No long er eligible based on patient's age to complete this topic HIB VACCINES Aged Out No longer eligi ble based on patient's age to complete this topic MENINGOCOCCAL VACCINES (ACWY) Aged Out No longer eligible based on patient's age to complete this topic Medical Devices Implanted Type Area Theatrical Scenic Designer Device Identifier Shelf Expiration Date Model / Serial / Lot Implantable Monitor-10/10/19 21 Implanted:10/09 (Quantity not on file) Implantable Monitor [employer] REVEAL LINQ II / / Procedures Procedure Name Priority Date/Time Associated Diagnosis Comments LIPID PANEL Routine 06/23/2024 5:27 AM EST from Last 3 Months or Most Recently Relevant to Health Maintenance Results * (ABNORMAL) Lipid panel (06/23/2024 5:27 AM EST) HDL 86 mg/dL [facility] Comment: ? Interpretation <40 mg/dL: Low HDL cholesterol (major risk factor for CHD) Greater than or equal to 60 mg/dL: High HDL cholesterol ( negative risk factor for CHD) HDL - cholesterol is affected by a number of factors, e.g. smoking, excerise, hormones, sex and age. CHOLESTEROL 224 0 - 240 mg/dL [facility] TRIGLYCERIDES 98 30 - 160 mg/dL [facility] LDL 118 50 - 129 mg/dL [facility] Comment: LDL levels in terms of risk for coronary heart disease: <100 mg/dL: Optimal 100-129 mg/dL: Near or above optimal 130-159 mg/dL: Borderline high 160-189 mg/dL: High >190 mg/dL: Very High CARDIAC RISK RATIO 2.6(L) 3.4 - 5.0 [facility] Blood 06/23/2024 5:27 AM EST 06/23/2024 6:06 AM EST Marge Duron NP LAB BLOOD ORDER AMANDA [facility] [address] [place] [address] from Last 3 Months or Most Recently Relevant to Health Maintenance Advance Directives For more information, please contact: [phone] (9AM - 5PM [place], Monday-Monday) Documents on File Type Date Recorded Patient Digital Media Sales Consultant Expl anation Healthcare Proxy 06/24/2024 4:33 PM * Full Code (Latest Code Status on File) Date Activated Date Inactivated Comments 06/22/2024 1:48 PM Question Answer Comments Code Status Confirmed With: Patient Care Teams Fishing Captain Relationship Specialty Start Date End Date Yrn Calderon DO [address] [place] [address] PCP - General Internal Medicine 01/15/15 Jerome Jackson MD [address] [place] [address], [facility] [address] [place] [address] [email or web address] Historical LMR Provider 05/18/17 Yrn Calderon DO [address] [place] [address] Historical LMR Provider 05/18/17 Lalo Hills MD [address] [place] [address] [email or web address] Historical LMR Provider 05/18/17 Additional Source Comments The information contained in this document represents components of the legal health record. It is not the complete legal health record.[facility]
--- OUTSIDE RECORDS SUMMARY | 2024-11-19 18:27 | XMS_ITS | Encounter Summary ---
Author Organization [facility] Address [address] [place] [address] Phone Care Team Providers Care Civil Cad Tech Name Role Phone Yrn Calderon DO Primary Care Provider Jerome Jackson MD Unavailable Yrn Calderon DO Unavailable Baljeet Alexander MD Unavailable [phone] Dianna London MD Unavailable Lalo Hills MD Unavailable [phone] Encounter Details Date Type Department Care Team (Latest Contact Info) Description 11/05/2018 Transcribe Orders [facility] Laboratory [address] [place] [address] Marco A Jalloh MD [address] [place] [address], [address] [address] [email or web address] Malignant neoplasm of prostate (Primary Dx) Social History Tobacco Use Types [...] Encounters Date Type Department Care Team (Late Contact Info) Description 01/27/2025 10:00 AM EDT Office Visit [facility] [address] [facility] 3rd Floor, [address] [place] [address] Yrn Sanchez MD, MS [address] [address] [email or web address] documented as of this encounter Results * (ABNORMAL) PSA (screening) (11/05/2018 12:31 PM EDT) PSA 11.55(H) 0 - 4.00 ng/mL [facility] Blood 11/05/2018 12:3 1 PM EDT 11/05/2018 12:34 PM EDT Marco A Jalloh MD LAB BLOOD ORDERABLES [facility] [address] [place] [address] documented in this encounter Visit Diagnoses Diagnosis Malignant neoplasm of prostate- Primary documented in this encounter Care Teams Civil Cad Tech Relationship Specialty Start Date End Date Yrn Calderon DO [address] [place] [address] PCP - General Internal Medicine 01/15/15 Jerome Jackson MD [address] [address] [email or web address] Historical LMR Provider 05/18/17 Yrn Calderon DO [address] [place] [address] Historical LMR Provider 05/18/17 Baljeet Alexander MD [address] [place] [address] [address] [email or web address] Historical LMR Provider 05/18/17 08/07/21 Dianna London MD [address] [place] [address] [facility], [place] [address] [email or web address] Historical LMR Provider 05/18/17 08/07/21 Lalo Hills MD [address] [place] [address] [email or web address] Historical LMR Provider 05/18/17 documented as of this encounter Additional Source Comments The information contained in this document represents components of the legal health record. It is not the complete legal health record.[facility]
--- OUTSIDE RECORDS SUMMARY | 2024-11-19 18:27 | XMS_ITS | Encounter Summary ---
Author Organization [facility] Address [address] [place] [address] Phone Care Team Providers Care Security Rep Name Role Phone Yrn Calderon DO Primary Care Provider [phone] Jerome Jackson MD Unavailable Yrn Calderon DO Unavailable [phone] Baljeet Alexander MD Unavailable [phone] Dianna London MD Unavailable Lalo Hills MD Unavailable [phone] Reason for Referral * Speech Therapy (Routine) - Closed Specialty Diagnoses / Procedures Referred By Controxane t Referred To Contact Speech Pathology Yrn Calderon DO [address] [place] [address] [facility] Parent [address] [place] [address] Referral ID Status Reason Start Date Expiration Date Visits Re quested Visits Authorized [id number] Closed 12/19/2019 12/18/2020 99 99 Encounter Details Date Type Department Care Team (Latest Contact Info) Description 12/19/2019 Transcribe Orders [facility] [address] [place] [address] Yrn Calderon DO [address] [place] [address] Encounter for rehabilitation (Primary Dx) Social History Tobacco Use Types [...] Description 01/27/2025 10:00 AM EDT Office Visit [facility] [address] [place] [address] 3rd Floor, [address] [place] [address] Yrn Sanchez MD, MS [address] [place] [address] [email or web address] Scheduled Referrals Name Type Priority Associated Diagnoses Order Schedule Ambulatory referral to [facility] Speech Language Pathology Outpatient Referral Routine Ordered: 12/19/2019 documented as of this encounter Visit Diagnoses Diagnosis Encounter for rehabilitation- Primary documented in this encounter Care Teams Security Rep Relationship Specialty Start Date End Date Yrn Calderon DO [address] [place] [address] PCP - General Internal Medicine 01/15/15 Jerome Jackson MD [address] [place] [address] [email or web address] Historical LMR Provider 05/18/17 Yrn Calderon DO [address] [place] [address] Historical LMR Provider 05/18/17 Baljeet Alexander MD [address] [place] [address] [email or web address] Historical LMR Provider 05/18/17 08/07/21 Dianna London MD [address] [place] [address] [facility], [place] [address] [email or web address] Historical LMR Provider 05/18/17 08/07/21 Lalo Hills MD [address] [place] [address] [email or web address] Historical LMR Provider 05/18/17 documented as of this encounter Additional Source Comments The information contained in this document represents components of the legal health record. It is not the complete legal health record.[facility]
--- OUTSIDE RECORDS SUMMARY | 2024-11-19 18:27 | XMS_ITS | Encounter Summary ---
Author Organization [facility] Address [address] [place] [address] [place] [address] Phone Care Team Providers Care Mining Engineer Name Role Phone Yrn Calderon DO Primary Care Provider Jerome Jackson MD Unavailable Yrn Calderon DO Unavailable [phone] Baljeet Alexander MD Unavailable Dianna London MD Unavailable Lalo Hills MD Unavailable [phone] Encounter Details Date Type Department Care Team (Latest Contact Info) Description 10/16/2017 Transcribe Orders [facility] Laboratory [address] [place] [address] Lalo Hills MD [address] [address] Pure hypercholesterolemia (Primary Dx) Social History Tobacco Use Types [...] Description 01/27/2025 10:00 AM EDT Office Visit [facility] [address] [facility] 3rd Floor, [address] [place] [address] Yrn Sanchez MD, MS 22 [facility], [address] [place] [address] [email or web address] documented as of this encounter Results * (ABNORMAL) LFTs (hepatic panel) (10/16/2017 12:04 PM EDT) ALKALINE PHOSPHATASE 62 39 - 117 U/L [facility] TOTAL BILIRUBIN 1.3(H) 0.0 - 1.2 mg/dL [facility] DIRECT BILIRUBIN <0.2 0 - 0.3 mg/dL [facility] Bilirubin (Indirect) NOT CALCULATED 0 - 1.5 mg/dL [facility] AST 30 0 - 37 U/L [facility] ALT 28 0 - 40 U/L [facility] TOTAL PROTEIN 7.3 6.5 - 8.0 g/dL [facility] ALBUMIN 4.5 3.9 - 4.8 g/dL [facility] GLOBULIN 2.8 1 - 4.8 g/dL [facility] A/G Ratio 1.61 1.00 - 4.80 RATIO [facility] Blood 10/16/2017 12:0 4 PM EDT 10/16/2017 12:08 PM EDT Lalo Hills MD LAB BLOOD ORDERABLES Performing Organization Address City/State/[facility] Co de Phone Number [facility] [address] [place] [address] * (ABNORMAL) Basic metabolic panel (10/16/2017 12:04 PM EDT) SODIUM 142 133 - 146 mmol/L [facility] CHLORIDE 102 96 - 108 mmol/L [facility] POTASSIUM 4.5 3.3 - 5.1 mmol/L [facility] CO2 28 21 - 35 mmol/L [facility] BUN 21(H) 6 - 19 mg/dL [facility] CREATININE 1.00 0.5 - 1.5 mg/dL [facility] GLUCOSE 79 70 - 99 mg/dL [facility] CALCIUM 9.6 8.4 - 10.3 mg/dL [facility] EGFR 72 >59 mL/min/1.7 3m2 [facility] Comment:If patient is black, multiply result by 1.159. The eGFR calculation has changed from the MDRD equation to the CKD-EPI equation as of October 03, 2017. ANION GAP 17 10 - 20 mmol/L [facility] Blood 10/16/2017 12:0 4 PM EDT 10/16/2017 12:08 PM EDT Lalo Hills MD LAB BLOOD ORDERABLES Performing Organization Address [facility] Co de Phone Number [address] [address] * (ABNORMAL) Lipid panel (10/16/2017 12:04 PM EDT) HDL 101 mg/dL [facility] Comment: Interpretation: Risk Level ?Males Decreased ? >45 mg/dL Average ? 40-45 mg/dL Increased ? <40 mg/dL CHOLESTEROL 206 0 - 240 mg/dL [facility] TRIGLYCERIDES 68 30 - 160 mg/dL [facility] LDL 91 50 - 129 mg/dL [facility] Comment: LDL levels in terms of risk for coronary heart disease: <100 mg/dL: Optimal 100-129 mg/dL: Near or above optimal 130-159 mg/dL: Borderline high 160-189 mg/dL: High >190 mg/dL: Very High CARDIAC RISK RATIO 2.0(L) 3.4 - 5.0 C [facility] Blood 10/16/2017 12:0 4 PM EDT 10/16/2017 12:08 PM EDT Lalo Hills MD LAB BLOOD ORDERABLES Performing Organization Address [facility] Co de Phone Number [address] [address] documented in this encounter Visit Diagnoses Diagnosis Pure hypercholesterolemia- Primary documented in this encounter Care Teams Mining Engineer Relationship Specialty Start Date End Date Yrn Calderon DO [address] [place] [address] PCP - General Internal Medicine 01/15/15 Jerome Jackson MD [address] [place] [address], [address] [place] [address] [email or web address] Historical LMR Provider 05/18/17 Yrn Calderon DO [address] [place] [address] Historical LMR Provider 05/18/17 Baljeet Alexander MD [address] [place] [address] [address] [place] [address] [email or web address] Historical LMR Provider 05/18/17 08/07/21 Dianna London MD [address] [place] [address] Orthopedics & Sports Medicine, [place] [address] [email or web address] Historical LMR Provider 05/18/17 08/07/21 Lalo Hills MD [address] [place] [address] [email or web address] Historical LMR Provider 05/18/17 documented as of this encounter Additional Source Comments The information contained in this document represents components of the legal health record. It is not the complete legal health record.[facility]
--- OUTSIDE RECORDS SUMMARY | 2024-11-19 18:27 | XMS_ITS | Encounter Summary ---
Author Organization [facility] Address [address] [place] [address] Phone Care Team Providers Care Service Provider Name Role Phone Yrn Calderon DO Primary Care Provider Jerome Jackson MD Unavailable [phone] Yrn Calderon DO Unavailable Baljeet Alexander MD Unavailable Dianna London MD Unavailable [phone] Lalo Hills MD Unavailable [phone] Encounter Details Date Type Department Care Team (Latest Contact Info) Description 02/26/2021 Transcribe Orders Virtual Department [address] [place] [address] Ester Khoury PA [address] [address] [email or web address] Hydrocele, unspecified hydrocele type (Primary Dx) Social [...] Description 01/27/2025 10:00 AM EDT Office Visit [facility] 22 [facility] 3rd Floor, [address] [place] [address] Yrn Sanchez MD, MS 22 [facility], [address] [place] [address] [email or web address] documented as of this encounter Results * US Kidneys and Bladder (03/08/2021 10:38 AM EDT) Anatomical Region Laterality Modality Abdomen, Kidney Ultrasound 03/08/2021 10:5 7 AM EDT Impressions 03/08/2021 11:00 AM EDT 1.Limited bladder due to suboptimal distention. Bladder wall irregularity which may be due to chronic outlet obstruction. 2.Moderate prostatomegaly. 3.Equivocal bilateral sub-5 mm nonobstructing calculi. Narrative 03/08/2021 11:00 AM EDT COMPARISON: ??None. RENAL AND BLADDER ULTRASOUND FINDINGS: Bladder: Suboptimal distention. Prevoid volume is 163 cc. Patient did not have the urge to void. Diffuse bladder wall irregularity and mild thickening which is limited in assessment due to under distention. No discrete masses or calculi. Moderate prostatomegaly. Kidneys: Right kidney measures ??11 x 4 cm. ??No hydronephrosis or masses. Multiple sub-5 mm non-shadowing echogenic foci ??Cortical echogenicity and thickness are normal. ??No perinephric fluid collections. Left kidney measures 11 x 6 cm. ??No hydronephrosis or masses. Multiple sub-5 mm non-shadowing echogenic foci. Cortical echogenicity and thickness are normal. ??No perinephric fluid collections. Procedure Note Reji Brooks MD - 03/08/2021 COMPARISON: None. RENAL AND BLADDER ULTRASOUND FINDINGS: Bladder: Suboptimal distention. Prevoid volume is 163 cc. Patient did nothave the urge to void. Diffuse bladder wall irregularity and mildthickening which is limited in assessment due to under distention. Nodiscrete masses or calculi. Moderate prostatomegaly. Kidneys: Right kidney measures 11 x 4 cm. No hydronephrosis or masses. Multiplesub-5 mm non-shadowing echogenic foci Cortical echogenicity and thicknessare normal. No perinephric fluid collections. Left kidney measures 11 x 6 cm. No hydronephrosis or masses. Multiplesub-5 mm non-shadowing echogenic foci. Cortical echogenicity and thicknessare normal. No perinephric fluid collections. IMPRESSION: 1.Limited bladder due to suboptimal distention. Bladder wall irregularitywhich may be due to chronic outlet obstruction. 2.Moderate prostatomegaly. 3.Equivocal bilateral sub-5 mm nonobstructing calculi. Ester ARAYA IMG US RENAL documented in this encounter Visit Diagnoses Diagnosis Hydrocele, unspecified hydrocele type- Primary Hydrocele, unspecified hydrocele type documented in this encounter Care Teams Service Provider Relationship Specialty Start Date End Date Yrn Calderon DO [address] [place] [address] PCP - General Internal Medicine 01/15/15 Jerome Jackson MD [address] [place] [address] [email or web address] Historical LMR Provider 05/18/17 Yrn Calderon DO [address] [place] [address] Historical LMR Provider 05/18/17 Baljeet Alexander MD [address] [place] [address] [email or web address] Historical LMR Provider 05/18/17 08/07/21 Dianna London MD 4 [facility], [facility] [place] [address] [email or web address] Historical LMR Provider 05/18/17 08/07/21 Lalo Hills MD [address] [place] [address] [email or web address] Historical LMR Provider 05/18/17 documented as of this encounter Additional Source Comments The information contained in this document represents components of the legal health record. It is not the complete legal health record.[facility]
--- OUTSIDE RECORDS SUMMARY | 2024-11-19 18:27 | XMS_ITS | Encounter Summary ---
Author Organization [facility] Address [address] [place] [address] Phone Care Team Providers Care Ocean Biologist Name Role Phone Yrn Calderon DO Primary Care Provider Jerome Jackson MD Unavailable Yrn Calderon DO Unavailable [phone] Lalo Hills MD Unavailable [phone] Encounter Details Date Type Department Care Team (Late st Contact Info) Description 06/22/2024 Procedure Pass [facility], Ct Scan - [address] [address] Social History Tobacco Use Types Packs/Day Years [...] Description 01/27/2025 10:00 AM EDT Office Visit [facility] [address] [place] [address] 3rd Floor, [address] [place] [address] Yrn Sanchez MD, MS 22 [facility], [address] [place] [address] documented as of this encounter Visit Diagnoses Not on filedocumented in this encounter Care Teams Ocean Biologist Relationship Specialty Start Date End Date Yrn Calderon DO [address] [place] [address] PCP - General Internal Medicine 01/15/15 Jerome Jackson MD [address] [place] [address], [facility] [address] [place] [address] [email or web address] Historical LMR Provider 05/18/17 Yrn Calderon DO [address] [place] [address] Historical LMR Provider 05/18/17 Lalo Hills MD [address] [place] [address] [email or web address] Historical LMR Provider 05/18/17 documented as of this encounter Additional Source Comments The information contained in this document represents components of the legal health record. It is not the complete legal health record.[facility]
--- OUTSIDE RECORDS SUMMARY | 2024-11-19 18:27 | XMS_ITS | Encounter Summary ---
Author Organization [facility] Address [facility] [employer] [facility] [address] [place] [address] Phone Care Team Providers Care Teller Vault Name Role Phone Yrn Calderon DO Primary Care Provider Jerome Jackson MD Unavailable [phone] Yrn Calderon DO Unavailable Lalo Hills MD Unavailable [phone] Encounter Details Date Type Department Care Team (Late st Contact Info) Description 05/25/2023 Ancillary Orders [facility], X-Ray - [address] [address] Yrn Calderon, DO [address] [place], [place] [phone] Acute pain of right knee Social History Tobacco Use Types Packs/Day Years Used Date Smoking Tobacco: Never Smokeless Tobacco: Never Alcohol Use Standard Drinks/Week Comments Not Currently 0 (1 standard drink = 0.6 oz pur e alcohol) Education Answer Date Recorded Are you interested in more education? Not on tatiana e 12/12/2022 Are you concerned about learning? Not on file 12/12/2022 No 12/12/2022 No 12/12/2022 Digital Access Answer Date Recorded No 12/25/2022 No 12/25/2022 Reliable internet access at home? Not on file 12/25/2022 Device with a working camera? Not on file Sex and Gender Information Value Date Recorded Sex Assigned at Male 11/30/2019 9:45 AM EDT Gender Identity Male 11/30/2019 9:45 AM EDT Sexual Orientation Not on file documented as of this encounter Plan of Treatment Upcoming Encounters Date Type Department Care Team (Late st Contact Info) Description 01/27/2025 10:00 AM EDT Office Visit [facility] 22 [facility] 3rd Floor, [address] [place] [address] Yrn Sanchez MD, MS 22 [facility], [address] [place] [address] [email or web address] documented as of this encounter Results * XR KNEE 4 OR MORE VIEWS (RIGHT) (05/25/2023 10:41 AM EDT) Anatomical Region Laterality Modality Knee Right Computed Radiogr aphy 05/25/2023 11:0 3 AM EDT Impressions 05/25/2023 11:04 AM EDT No fracture or dislocation. Narrative 05/25/2023 11:04 AM EDT XR KNEE 4 OR MORE VIEWS (RIGHT) COMPARISON: None FINDINGS: Right Knee: No fracture. Normal alignment. Normal joint spaces. No effusion. Procedure Note Taqueria Noonan MD - 05/25/2023 XR KNEE 4 OR MORE VIEWS (RIGHT) COMPARISON: None FINDINGS: Right Knee: No fracture. Normal alignment. Normal joint spaces. Noeffusion. IMPRESSION: No fracture or dislocation. Yrn Calderon DO IMG XR LOWER EXTREMI TY documented in this encounter Visit Diagnoses Diagnosis Acute pain of right knee Acute pain of right knee documented in this encounter Care Teams Teller Vault Relationship Specialty Start Date End Date Yrn Calderon DO [address] [place] [address] PCP - General Internal Medicine 01/15/15 Jerome Jackson MD [address] [place] [address], [address] [place] [address] [email or web address] Historical LMR Provider 05/18/17 Yrn Calderon DO [address] [place] [address] Historical LMR Provider 05/18/17 Lalo Hills MD [address] [place] [address] [email or web address] Historical LMR Provider 05/18/17 documented as of this encounter Additional Source Comments The information contained in this document represents components of the legal health record. It is not the complete legal health record.[facility]
== END 2024-11-19 16:09 | disposition home or self-care (01) ==
LOC: HO.HMCSH 15:38
PROVIDERS: PCP Internal Medicine; Visit Provider Internal Medicine
DX: C61 Malignant neoplasm of prostate (principal); E78.5 Hyperlipidemia, unspecified; G47.00 Insomnia, unspecified

== ENCOUNTER → 2024-11-19 15:38 | Outpatient (BNVA) | payer MEDICARE, SELFPAY | PROVIDERS: PCP Internal Medicine; Visit Provider Internal Medicine | DX: C61 Malignant neoplasm of prostate (principal); E78.5 Hyperlipidemia, unspecified; G47.00 Insomnia, unspecified; N40.0 Benign prostatic hyperplasia without lower urinary tract symptoms; Z79.899 Other long term (current) drug therapy | CPT/HCPCS: 96127; 99202 ==

== ENCOUNTER 2025-03-03 13:23 | Outpatient (AMB) | payer MEDICARE, SELFPAY ==
--- NOTE | 2025-03-03 13:30 | A.OFFPC_ITS ---
Intake Visit Reasons: f/u scabies exposure Flight Operation Coordinator Required: No Allergies Sulfa (Sulfonamide Antibiotics) Allergy (Mild, Verified 03/03/25 13:55) Rash Medication List - Last Reconciled 03/03/25 by Radha Renner PA-C aspirin 81 mg PO DAILY ezetimibe 10 mg PO DAILY ivermectin 16,692 mcg PO Q2W 2 doses permethrin 5% 1 appl topical Q14D 2 doses tamsulosin 0.4 mg PO DAILY temazepam 15 mg PO BEDTIME PRN Tobacco use date assessed: 11/19/24 Dental Screening Dental Screen Date: 11/19/24 HPI f/u scabies exposure HPI Details The patient is an 84-year-old male presenting with a rash and itching following exposure to an individual diagnosed with Taiwanese scabies. The exposure occurred recently, and the patient reports itching all over the body, particularly on the back, mid-thigh, neck, belly, and chest. The itching is described as severe, but there is no involvement of the web spaces of the fin gers, which is typical for scabies. The patient has already undergone treatment with permethrin cream, which was applied overnight for approximately 14 hours. Despite treatment, the patient reports persistent itching, although there is some improvement noted. There are no signs of infection, and the rash is not visibly prominent, with only a few areas showing small pimples. [facility] Medical History (Updated 03/03/25 @ 13:57 by Radha Renner PA-C) Taiwanese scabies Insomnia Hyperlipidemia Prostate cancer Surgical History History of colonoscopy (~05/23/14) Family History Father No problems noted. Mother No problems noted. Social History Housing: Condominium Alcohol intake: current Alcohol intake frequency: does not drink Patient Tobacco Use Status: Never used Tobacco service: No Current occupational status: retired Cognitive needs: No Hearing needs: Yes (b/l hearing aids) Vision needs: Yes (reading glasses) Questionnaire PHQ-9 Over the last 2 weeks, how often have you been bothered by any of the following problems? 1. Little interest or pleasure in doing things: not at all 2. Feeling down, depressed, or hopeless: not at all 3. Trouble falling or staying asleep, or sleeping too much: not at all 4. Feeling tired or having little energy: not at all 5. Poor appetite or overeating: not at all 6. Feeling bad about yourself - or that you are a failure or have let yourself or your family down: not at all 7. Trouble concentrating on things, such as reading the newspaper or watching television: not at all 8. Moving or speaking so slowly that other people could have noticed. Or the opposite - being so fidgety or restless that you have been moving around a lot more than usual: not at all 9. Thoughts that you would be better off or of hurting yourself in some way: not at all Total score: 0 Depression Screening Interpretation: Negative Depression Screening Done: Yes [address] - PHQ-9 Billing: Yes Source: Developed by Drs. Yrn Guajardo, Melida Hernandez, Brett Hughes and colleagues, with an educational susana from [employer]. Thrive Questionnaire Date Thrive assessed: 11/19/24 I am a: Patient What is your living situation today?: I have a steady place to live Within the past 12 months, did the food you bought not last and you didn't have the money to get more?: Never true Within the past 12 months, did you worry whether your food would run out before you got money to buy more?: Never true Do you have trouble paying for medicines?: No Do you have trouble getting transportation to medical appointments?: No Do you have trouble paying your heating and electricity bill?: No Do you have trouble taking care of your child, family member or friend?: No Do you have trouble with day-to-day activities such as bathing, preparing meals, shopping, managing finances, etc.?: No Are you currently unemployed and looking for a job?: No Are you interested in more education?: No Please select the resources that you would like help with: None THRIVE Score: 0 AUDIT C Alcohol Use Questionnaire (AUDIT-C) 1. How often do you have a drink containing alcohol?: Never 3. How often do you have six or more drinks on one occasion?: Never Total Score: 0 Score Reviewed/Action Taken: No ALPA-7 AMB Questionnaire ALPA-7 Date ALPA - 7 assessed: 11/19/24 Feeling nervous, anxious, or on edge: 0 = Not at all Not being able to stop or control worryin = Not at all Worrying too much about different things: 0 = Not at all Trouble relaxin = Not at all Being so restless that it is hard to sit still: 0 = Not at all Becoming easily annoyed or irritable: 0 = Not at all Feeling afraid as if something awful might happen: 0 = Not at all Total ALPA-7 score (0-4 normal; 5-9 mild; 10-14 moderate; 15-21 severe): 0 Source: Developed by Drs. Yrn Guajardo, Melida Hernandez, Brett Hughes and colleagues, with an educational susana from [employer]. ALPA-7 Assessment Billing ALPA-7 Assessment Tool: ALPA-7 Assessment 39403 Review of Systems Const Details: - Integumentary: Reports severe itching all over the body, particularly on the back, mid-thigh, neck, belly, and chest. Denies itching in the web spaces of the fingers. - General: Denies visible redness or infection of the rash. All systems reviewed & are unremarkable except as noted in HPI and below Physical exam (Primary Care) Tobacco/Smoking Status: Tobacco use Status Tobacco use date assessed 11/19/24 03/03/25 13:33 Patient Tobacco Use Status Never used Tobacco 03/03/25 13:33 PHQ-9: PHQ-9 Score PHQ-9: Total score 0 03/03/25 13:33 Depression Screening Interpretation: Negative Thrive Assessment: Date of Thrive Assessment Date Thrive assessed 11/19/24 03/03/25 13:33 Telehealth Telehealth Telehealth Platform: [facility] Location of provider rendering services: practice address Location of patient: address on file Patient Identification confirmed using: Name, : Yes Telehealth method: voice only Patient verbally consented to treatment: Yes Patient verbally consented to billing insurance company: Yes Patient informed of any privacy concerns related to visit: Yes Minutes spent on Phone/Video with Pt.: 15 Coding Level of Care Code Tele Est Pt Level 4 (36371) Diagnoses Taiwanese scabies B86 Additional Codes PHQ-9 - 89926 - PHQ-9 Billing: Yes ([id number]) ALPA-7 Assessment Billing - ALPA-7 Assessment Tool: ALPA-7 Assessment 93936 ([id number]) Assessment & Plan Assessment & Plan (1) Taiwanese scabies: Code(s): B86 - Scabies Category: Medical Plan: [place]ese Scabies Plan Plan Patient was informed and verbally consented to the use of an ambient scribe for clinic note documentation during this visit. 1. [place]ese Scabies The patient was advised to repeat the permethrin treatment after one week to en sure complete eradication of the infestation. Additionally, a prescription for ivermectin was provided, to be taken orally and repeated in 7 to 14 days if symptoms persist. The patient was instructed to monitor for any signs of infection and to follow up if symptoms do not improve. I discussed with the patient the diagnosis of Taiwanese scabies and the treatment plan, including the use of permethrin cream and ivermectin. I explained the importance of repeating the treatment to ensure complete eradication and advised monitoring for any signs of infection. The patient was informed about the follow-up plan and the need to contact us if symptoms persist or worsen. Medications: New ivermectin Patient to take 6 tablets by mouth as a single dose. Repeat dose in 7-14 days. Dispense 12 tablets. Repeat dose in 7-14 days 16,692 mcg PO Q2W 12 tabs 0RF 2 doses Patient Instructions: - Repeat permethrin treatment in one week. - Take ivermectin as prescribed and repeat in 7 to 14 days if needed. - Monitor for signs of infection and contact the clinic if symptoms do not improve.
--- OUTSIDE RECORDS SUMMARY | 2025-03-03 13:39 | XMS_ITS | Encounter Summary ---
Author Organization [facility] Address [address] [place] [phone] Phone Care Team Providers Care Director Of Curriculum And Instruction Name Role Phone Yrn Calderon DO Primary Care Provider Jerome Jackson MD Unavailable Yrn Calderon DO Unavailable Baljeet Alexander MD Unavailable Dianna London MD Unavailable Lalo Hills MD Unavailable [phone] Encounter Details Date Type Department Care Team (Latest Contact Info) Description 11/05/2018 Transcribe Orders [facility] [address] [place] [address] Marco A Jalloh MD [address] [place] [address], [address] [address] [email or web address] Malignant neoplasm of prostate (Primary Dx) Social History Tobacco Use Types Packs/Day Years Used Date Smoking Tobacco: Never Smokeless Tobacco: Never Alcohol Use Standard Drinks/Week Comments Yes 0 (1 standard drink = 0.6 oz pur e alcohol) Sex and Gender Information Value Date Recorded Sex Assigned at Male 11/30/2019 9:45 AM EDT Legal Sex Male 6:34 PM EST Gender Identity Male 11/30/2019 9:45 AM EDT Sexual Orientation Not on file documented as of this encounter Plan of Treatment Not on file documented as of this encounter Results * (ABNORMAL) PSA (screening) (11/05/2018 12:31 PM EDT) PSA 11.55(H) 0 - 4.00 ng/mL [facility] Blood 11/05/2018 12:3 1 PM EDT 11/05/2018 12:34 PM EDT us Marco A Jalloh MD LAB BLOOD ORDERABLES Final Resu lt [facility] [address] [place] [address] documented in this encounter Visit Diagnoses Diagnosis Malignant neoplasm of prostate- Primary documented in this encounter Care Teams Director Of Curriculum And Instruction Relationship Specialty Start Date End Date Yrn Calderon DO [address] [place] [phone] PCP - General Internal Medicine 01/15/15 Jerome Jackson MD [address] [place] [phone] [email or web address] Historical LMR Provider 05/18/17 Yrn Calderon DO [address] [place] [phone] Historical LMR Provider 05/18/17 Baljeet Alexander MD [address] [place] [phone] [email or web address] Historical LMR Provider 05/18/17 08/07/21 Dianna London MD [address] [place] [address] Orthopedics & Sports Medicine, [facility] [place] [address] Historical LMR Provider 05/18/17 08/07/21 Lalo Hills MD [address] [address] [email or web address] Historical LMR Provider 05/18/17 documented as of this encounter Additional Source Comments The information contained in this document represents components of the legal health record. It is not the complete legal health record.[facility]
--- OUTSIDE RECORDS SUMMARY | 2025-03-03 13:39 | XMS_ITS | Clinical Summary ---
Author Organization [facility] Address [facility] [place] [address] Care Team Providers Care Felt Cutter Name Role Phone YumikoYrn hi Primary Care Provider [phone] Allergies Active Allergy Reactions Criticality Noted Date Comments Fluoxetine Anxiety 07/27/2022 Sulfa (Sulfonamide Antibiotics) 02/2015 Medications apixaban (Eliquis) 5 mg Tablet Take 5 mg by mouth Twice daily. 08/21/2020 Active aspirin 81 mg capsule Take 1 tablet by mouth Daily. Active gabapentin (Neurontin) 100 mg Capsule Take 200 mg by mouth Daily. 12/22/2020 Active temazepam (Restoril) 15 mg Capsule Take 7.5 mg by mouth Once daily as needed. Active rosuvastatin (Crestor) 40 mg tablet 09/28/2022 Active ezetimibe (Zetia) 10 mg tablet Take 10 mg by mouth daily. Active tamsulosin (Flomax) 0.4 mg capsule TAKE ONE CAPSULE BY MOUTH EVERY DAY 90 capsule 3 06/03/2024 Active Active Problems No known active problems Social History Tobacco Use Types Packs/Day Years Used Date Smoking Tobacco: Never Smokeless Tobacco: Never Tobacco Cessation:Counseling Given: Not Answered Sex and Gender Information Value Date Recorded Sex Assigned at Not on file Legal Sex Male 11:51 AM EDT Gender Identity Not on file Sexual Orientation Not on file Last Filed Vital Signs Vital Sign Reading Time Taken Comments Blood Pressure 134/72 05/04/2023 1:10 PM EDT Pulse 59 05/04/2023 1:10 PM EDT Temperature 36 C (96.8 F) 09/23/2021 7:54 AM EST Respiratory Rate 12 09/23/2021 8:00 AM EST Oxygen Saturation 96% 10/28/2022 10:49 AM EDT Inhaled Oxygen Concentration - - Weight 73.5 kg (162 lb) 09/23/2021 6:56 AM EST Height 180.3 cm (5' 11 ) 09/23/2021 6:40 AM EST Body Mass Index 22.59 09/23/2021 6:40 AM EST Plan of Treatment Health Maintenance Due Date Last Done Comments Tetanus/Diphtheria/Pertussis Vaccines (1 - Tdap) 09/01 Pneumoccocal Vaccine: 50+ (1 of 1 - PCV) 1990 Zoster vaccine (1 of 2) 1990 Advance Directive 1995 RSV Vaccine (1 - 1-dose 75+ series) 2015 Covid-19 Vaccine (1 - 2023- season) 2024 Influenza (Flu) vaccine (1 o f 1 - Influenza standard series) 03/31/2025 Insurance [employer] MEDICARE Care Teams Felt Cutter Relationship Specialty Start Date End Date Yrn Calderon DO [address] [place] [id number] PCP - General Cardiology 05/07/21
--- OUTSIDE RECORDS SUMMARY | 2025-03-03 13:39 | XMS_ITS | Clinical Summary ---
Author Organization [address] [place] [address] [place] [phone] Phone Care Team Providers Care Crm Solution Architect Name Role Phone Yrn Calderon DO Primary Care Provider [phone] Allergies Active Allergy Reactions Criticality Noted Date [...] be a good candidate having an elevated [id number] score of 4 for age and prior [...] 06/2016 NUKE SL INF ISCH EF 55 Social History Tobacco Use Types Packs/Day Years [...] Patients (1 - 1-dose 75+ series) 2015 Falls Risk Assessment 06/28/2022 Medicare Annual Wellness Visit 06/28/2022 Social Influencers of Health Screening 06/28/2022 COVID-19 Vaccine ( season) 2024 10/31/2020, 09/07/2020 Depression Screening 07/31/2024 Influenza Vaccine (#1) 2025 , 05/20/2021, 05/04/2020, Additional history exists Cholesterol Screening [...] this topic Medical Devices Implanted Type Area Surgical Elastic Knitter Hand Frame Device Identifier Shelf Expiration Date Model / Serial / Lot Medt-Card [id number] Implanted:09/28 (Quantity not on file) Cardiac Loop Recorder [employer] - CARDIAC RHYTH-CRDM [id number] / [id number] / Procedures Procedure Name Priority Date/Time Associated Diagnosis Comments LIPID PANEL Routine 05/25/2023 from Last 3 Months or Most Recently Relevant to Health Maintenance Results * Lipid panel (05/25/2023) LDL/HDL Ratio 0 Comment:abstracted, no inter pretation Triglycerides 0 mg/dL Comment:abstracted, no inter pretation Cholesterol 0 mg/dL Comment:abstracted, no inter pretation HDL 0 mg/dL Comment:abstracted, no inter pretation LDL Cholesterol 0 mg/dL Comment:abstracted, no inter pretation Blood Venous blood specimen / Unknown [facility] Provider LAB BLOOD ORDERABLES Tamanna l Result from Last 3 Months or Most Recently Relevant to Health Maintenance Insurance [employer] - [place] MEDICARE ADVANTAGE Care Teams Crm Solution Architect Relationship Specialty Start Date End Date Yrn Calderon DO [address] [place] [phone] PCP - General Internal Medicine 08/26/20
== END 2025-03-03 14:28 | disposition home or self-care (01) ==
LOC: HO.HMCSH 13:23
PROVIDERS: PCP Internal Medicine; Visit Provider Physician Assistant Medical
DX: B86 Scabies (principal)

== ENCOUNTER → 2025-03-03 13:23 | Outpatient (BNVA) | payer MEDICARE, SELFPAY | PROVIDERS: PCP Internal Medicine; Visit Provider Physician Assistant Medical | DX: B86 Scabies (principal); Z13.31 Encounter for screening for depression | CPT/HCPCS: 96127 ==

== ENCOUNTER 2025-05-15 10:42 | Outpatient (REF) | payer MEDICARE, SELFPAY ==
[2025-05-15 11:29] LABS: Hematocrit 39.3 % (42.0-52.0); Hemoglobin 13.4 g/dl (14.0-18.0); Mean Corpuscular HGB Conc 34.1 g/dl (31.0-36.0); Mean Corpuscular Hemoglobin 32.8 pg (27.0-33.0); Mean Corpuscular Volume 96.3 fL (80.0-98.0); NRBC Abs Auto 0.000 X10*3/uL (0.0-0.012); NRBC Pct Auto 0.0 /100WBC (0.0-0.2); Platelet Count 244 X10*3/uL (160-400); Red Blood Count 4.08 X10*6/uL (4.60-5.80); White Blood Count 5.0 X10*3/uL (4.8-10.8)
[2025-05-15 11:34] LABS: Appearance Urine Clear; Glucose Urine UA Negative (Negative); PH 5.5 (5.0-9.0); Specific Gravity - Urine 1.010 (1.005-1.025)
[2025-05-15 12:32] LABS: Alanine Aminotransferase 23 U/L (0-40); Albumin Level 4.5 g/dL (3.5-5.0); Alkaline Phosphatase 54 U/L (39-117); Anion Gap 12 (12-20); Aspartate Amino Transferase 25 U/L (5-37); Blood Urea Nitrogen 21 mg/dL (9-16); Calcium 9.8 mg/dL (8.4-10.2); Carbon Dioxide 28 mmol/L (22-29); Chloride 104 mmol/L (96-108); Cholesterol 248 mg/dL (<200); Estimated Glomerular Filt Rate > 60; HDL Cholesterol 81 mg/dL (>40); Potassium 4.6 mmol/L (3.3-5.1); Sodium 139 mmol/L (135-145); Thyroid Stimulating Hormone 1.52 uIU/mL (0.32-4.0); Total Protein 7.3 g/dL (6.5-8.0); Triglycerides 97 mg/dL (<150)
== END 2025-05-15 10:43 | disposition home or self-care (01) ==
LOC: HO.LAB 10:42
PROVIDERS: PCP Internal Medicine; Visit Provider Internal Medicine
DX: C61 Malignant neoplasm of prostate (principal); E78.5 Hyperlipidemia, unspecified; G47.00 Insomnia, unspecified
CPT/HCPCS: 36415; 80048; 80061; 80076; 81003; 84443; 85027

== ENCOUNTER 2025-05-20 10:40 | Outpatient (REF) | payer MEDICARE, SELFPAY ==
--- NOTE | ~2025-05-20 | XR_ITS ---
EXAMINATION: XR CHEST CLINICAL INFORMATION: R05.9 - Cough, unspecified COMPARISON: None available. TECHNIQUE: PA and lateral views. FINDINGS: Pulmonary reticular pattern. No gross consolidation, pleural effusion or pneumothorax. Cardiomediastinal silhouette size is normal.] There is a metallic device overlapping the left side of the heart silhouette in the anterior left hemithorax. Multilevel thoracic spondylosis. XR/XR chest 2V IMPRESSION: Chronic interstitial lung disease. Electronically signed by: Jm Delgado MD 05/20/2025 01:33 PM EDT RP
--- OUTSIDE RECORDS SUMMARY | 2025-05-20 17:05 | XMS_ITS | Clinical Summary ---
Author Organization [address] [place] [address] [place] [address] Phone Care Team Providers Care Dewaterer Operator Name Role Phone Yrn Calderon DO Primary Care Provider [phone] Allergies Active Allergy Reactions Criticality Noted Date [...] be a good candidate having an elevated CFP1YY2-TYLd score of 4 for age and prior [...] 08/06/2024 1:11 PM EST Plan of Treatment Upcoming Encounters Date Type Department Care Team (Late st Contact Info) Description 2025 9:25 AM EST Office Visit [facility] [address] [facility] [address] [place] [address] Babar Pena MD [address] [place] [address] Health Maintenance Due Date Last Done Comments DTaP,Tdap,and Td Vaccines (1 - Tdap) 1959 RSV Immunization Adult Patients (1 - 1-dose 75+ series) 2015 Falls Risk Assessment 06/28/2022 Medicare Annual Wellness Visit 06/28/2022 Social Influencers of Health Screening 06/28/2022 Depression Screening 07/31/2024 COVID-19 Vaccine ( season) 2025 10/31/2020, 09/07/2020 Influenza Vaccine (#1) 2025 , 05/20/2021, 05/04/2020, [...] this topic Medical Devices Implanted Type Area Shipping Clerk Crating Device Identifier Shelf Expiration Date Model / Serial / Lot Medt-Card [id number] Implanted:09/28 (Quantity not on file) Cardiac Loop Recorder [employer] - CARDIAC RHYTH-CRDM [id number] / [id number] / Procedures Procedure Name Priority Date/Time Associated [...] pretation Blood Venous blood specimen / Unknown [facility] Provider LAB BLOOD ORDERABLES Tamanna l Result from Last 3 Months or Most Recently Relevant to Health Maintenance Insurance [employer] MEDICARE ADVANTAGE Care Teams Dewaterer Operator Relationship Specialty Start Date End Date Yrn Calderon DO [address] [place] [phone] PCP - General Internal Medicine 08/26/20
== END 2025-05-20 10:41 | disposition home or self-care (01) ==
LOC: HO.XRAY 10:40
PROVIDERS: PCP Internal Medicine; Visit Provider Internal Medicine
DX: Z23 Encounter for immunization (principal); R05.9 Cough, unspecified; R06.02 Shortness of breath
CPT/HCPCS: 71046; 90471; 90656; 93005; 96127; 99212

== ENCOUNTER 2025-05-20 10:40 | Outpatient (AMB) | payer MEDICARE, SELFPAY ==
--- NOTE | 2025-05-20 10:50 | A.OFFPC_ITS ---
Vital Signs 05/20/25 11:04 Height 5 ft 10 in Weight 180 lb BMI 25.8 BP 122/58 L Blood Pressure Location Rt brachial Position Sitting Pulse 64 Pulse Source Pulse Oximeter Temp 97.2 F Temp Source Temporal Artery Scan Pulse Oximetry (%) 96 Oxygen Delivery Method Room Air Intake Visit Reasons: 6 month f/u Accompanied by: Self / Same As Patient Allergies Sulfa (Sulfonamide Antibiotics) Allergy (Mild, Verified 03/03/25 13:55) Rash Tobacco use date assessed: 05/20/25 Fall risk assessment: No Falls in past year Last assessed Fall Risk: 05/20/25 Dental Screening Dental Screen Date: 05/20/25 Did you have a dental visit in the last 12 months?: Yes Was dental information given to patient?: Patient has dentist [facility] Medical History Sudanese scabies Insomnia Hyperlipidemia Prostate cancer Surgical History History of colonoscopy (~05/23/14) Family History Father No problems noted. Mother No problems noted. Social History Housing: Condominium Alcohol intake: current Alcohol intake frequency: does not drink Patient Tobacco Use Status: Never used Tobacco service: No Current occupational status: retired Cognitive needs: No Hearing needs: Yes (b/l hearing aids) Vision needs: Yes (reading glasses) Questionnaire PHQ-9 Over the last 2 weeks, how often have you been bothered by any of the following problems? 1. Little interest or pleasure in doing things: not at all 2. Feeling down, depressed, or hopeless: not at all 3. Trouble falling or staying asleep, or sleeping too much: not at all 4. Feeling tired or having little energy: not at all 5. Poor appetite or overeating: not at all 6. Feeling bad about yourself - or that you are a failure or have let yourself or your family down: not at all 7. Trouble concentrating on things, such as reading the newspaper or watching television: not at all 8. Moving or speaking so slowly that other people could have noticed. Or the opposite - being so fidgety or restless that you have been moving around a lot more than usual: not at all 9. Thoughts that you would be better off or of hurting yourself in some way: not at all Total score: 0 Depression Screening Interpretation: Negative Depression Screening Done: Yes [address] - PHQ-9 Billing: Yes Source: Developed by Drs. Yrn Guajardo, Melida Hernandez, Brett Hughes and colleagues, with an educational susana from [employer]. Thrive Questionnaire Date Thrive assessed: 05/20/25 I am a: Patient What is your living situation today?: I have a steady place to live Within the past 12 months, did the food you bought not last and you didn't have the money to get more?: Never true Within the past 12 months, did you worry whether your food would run out before you got money to buy more?: Never true Do you have trouble paying for medicines?: No Do you have trouble getting transportation to medical appointments?: No Do you have trouble paying your heating and electricity bill?: No Do you have trouble taking care of your child, family member or friend?: No Do you have trouble with day-to-day activities such as bathing, preparing meals, shopping, managing finances, etc.?: No Are you currently unemployed and looking for a job?: No Are you interested in more education?: No Please select the resources that you would like help with: None THRIVE Score: 0 AUDIT C Alcohol Use Questionnaire (AUDIT-C) 1. How often do you have a drink containing alcohol?: Monthly or less 3. How often do you have six or more drinks on one occasion?: Never Total Score: 1 Score Reviewed/Action Taken: No ALPA-7 AMB Questionnaire ALPA-7 Date ALPA - 7 assessed: 05/20/25 Feeling nervous, anxious, or on edge: 0 = Not at all Not being able to stop or control worryin = Not at all Worrying too much about different things: 0 = Not at all Trouble relaxin = Not at all Being so restless that it is hard to sit still: 0 = Not at all Becoming easily annoyed or irritable: 0 = Not at all Feeling afraid as if something awful might happen: 0 = Not at all Total ALPA-7 score (0-4 normal; 5-9 mild; 10-14 moderate; 15-21 severe): 0 Source: Developed by Drs. Yrn Guajardo, Melida Hernandez, Brett Hughes and colleagues, with an educational susana from [employer]. ALPA-7 Assessment Billing ALPA-7 Assessment Tool: ALPA-7 Assessment 70551 Physical exam (Primary Care) Vital Signs: Last Vital Signs Temp 97.2 F 05/20/25 11:04 Pulse 64 05/20/25 11:04 BP 122/58 L 05/20/25 11:04 Pulse Ox 96 05/20/25 11:04 Oxygen Delivery Method Room Air 05/20/25 11:04 BMI result Body Mass Index 25.8 Tobacco/Smoking Status: Tobacco use Status Tobacco use date assessed 05/20/25 05/20/25 11:07 Patient Tobacco Use Status Never used Tobacco 05/20/25 10:51 PHQ-9: PHQ-9 Score PHQ-9: Total score 0 05/20/25 11:07 Depression Screening Interpretation: Negative Thrive Assessment: Date of Thrive Assessment Date Thrive assessed 05/20/25 05/20/25 11:07 Office Procedures Flu Questionnaire Does the patient have a severe egg allergy?: No Does the patient have severe life threatening allergies?: No Does the patient have a fever or illness today?: No Has the patient ever had Guillain-[place] Syndrome?: No Has the patient ever had any past reaction to a flu shot?: No Immunizations Fluarix [id number] (PF) 45 mcg (15 mcg x 3)/0.5 mL IM syringe Performing Provider: Jere Aparicio MD [facility] Administered by: Kellie Cleary CMA on 05/20/25 12:26 Dose Route Admin Location Dispensed Lot Number Expiration Date [facility] [employer] 0.5 mL IM Left Deltoid 0.5 mL [id number] 01/27/26 [id number] [employer] VIS Given Date VIS Provided VIS Publication Date 05/20/25 Single Vaccine 24 Eligibility Eligibility Date Funding Source Not [facility] Eligible 05/20/25 Private Coding Additional Codes ALPA-7 Assessment Billing - ALPA-7 Assessment Tool: ALPA-7 Assessment 82565 ([id number]) PHQ-9 - 65095 - PHQ-9 Billing: Yes ([id number]) Assessment & Plan Assessment & Plan Orders: Orders Influenza [id number] Immunization Today Z23 - Encounter for immunization AMB EKG-In Office Today R07.9 - Chest pain, unspecified XR chest 2V Today R05.9 - Cough, unspecified
[2025-05-20 11:04] VITALS: BP 122/58; PULSE 64; TEMP 36.2; O2SAT 96; BMI 25.8
--- OUTSIDE RECORDS SUMMARY | 2025-05-20 12:49 | XMS_ITS | Clinical Summary ---
Author Organization [facility] Address [address] [place] [address] Phone Care Team Providers Care Category Manager Name Role Phone Yrn Calderon DO Primary Care Provider Jerome Jackson MD Unavailable Yrn Calderon DO Unavailable [phone] Lalo Hills MD Unavailable [phone] Allergies Active Allergy Reactions Criticality Noted Date Comments Fluoxetine Anxiety Low 07/27/2022 Other reaction(s): anxiety Sulfa (Sulfonamide Antibiotics) 02/04/2015 Medications temazepam (RESTORIL) 15 mg capsule Take 15 [...] occluded right ICA Symptoms markedly improved overnight [facility] neurology recommended MRI, aspirin. If MRI positive recommended dual antiplatelet therapy. Will follow-up with [facility] neurologist today for further advice and diagnostic [...] that time. Otherwise the exam was nonfocal. [facility] [place] [place], note pending. Recommended MRI, continue home aspirin no new therapy. Call with MRI results. We will initiate the stroke workup with MRI, stroke labs, neurochecks, PT, OT, echocardiogram if available, cardiac tech. Patient has known history of atrial flutter [...] anticoagulated. He is currently off of the cardiac tech in the ED, heart sounds are regular, twelve-lead EKG showed normal sinus rhythm Assessment & Plan (05/26/2020 4:05 PM EDT): He presented to [facility] with his first episode of atrial fibrillation RVR on May 21. He was successfully cardioverted. He was started on an anticoagulant. His ventricular response was as high as the 150s. I did start him on 25 mg of metoprolol succinate. I have ordered an echocardiogram. I have arranged for follow-up with an gear milling machine set up operator to discuss more long-term management of his [...] appropriate. It was drawn at his request. Encounters Date Type Department Care Team Description 04/18/2025 10:13 AM EDT - 04/18/2025 11:59 PM EDT Hospital Encounter [facility] Laboratory [address] [place] [address] Mykel Stokes MD Discharge Disposition: Home or Self Care 04/18/2025 Transcribe Orders [facility] Laboratory [address] [place] [address] Babar Pena MD Personal history of unspecified circulatory disease (Primary Dx); Encounter for interrogation of cardiac recorder 04/18/2025 Transcribe Orders [facility] Laboratory [address] [place] [address] Mykel Stokes MD Screening for prostate cancer (Primary Dx) from Last 3 Months Immunizations Immunization Administration Dates Next Due Zoster recombinant 03/13/2019,01/10/2019 [...] Sign Reading Time Taken Comments Blood Pressure 104/58 01/27/2025 10:23 AM EDT Pulse 67 01/27/2025 10:23 AM EDT Temperature 36.7 C (98.1 F) 06/23/2024 8:35 AM EST Respiratory Rate 18 06/23/2024 8:35 AM EST Oxygen Saturation 97% 01/27/2025 10:23 AM EDT Inhaled Oxygen Concentration - - Weight 83 kg (183 lb) 01/27/2025 10:23 AM EDT Height 180.3 cm (5' 10.98 ) 01/27/2025 10:23 AM EDT Body Mass Index 25.53 01/27/2025 10:23 AM EDT Plan of Treatment Health Maintenance Due Date Last Done Comments Adult Td,Tdap Booster 1940 DEPRESSION SCREENING 1952 RSV VACCINE (1 - 1-dose 75+ series) 2015 INFLUENZA VACCINE (#1) 2025 , 06/18/2019, 06/07/2018, Additional history exists COVID-19 VACCINE ( season) 2025 10/31/2020, 09/07/2020 LIPID PANEL 06/23/2025 06/23/2024, 04/30, [...] age to complete this topic MENINGOCOCCAL VACCINES (B) Aged Out N o longer eligible based on patient's age to complete this topic Medical Devices Implanted Type Area Data Capture Specialist Device Identifier Shelf Expiration Date Model / Serial / Lot Implantable Monitor-10/10/19 21 Implanted:10/09 (Quantity not on file) Implantable Monitor [employer] REVEAL LINQ II / / Procedures Procedure Name Priority Date/Time Associated Diagnosis Comments BASIC METABOLIC PANEL Routine 04/18/2025 10:28 AM EDT Personal history of unspecified circulatory disease Encounter for interrogation of cardiac recorder PT-INR Routine 04/18/2025 10:28 AM EDT Personal history of unspecified circulatory disease Encounter for interrogation of cardiac recorder CBC AND DIFFERENTIAL Routine 04/18/2025 10:28 AM EDT Personal history of unspecified circulatory disease Encounter for interrogation of cardiac recorder PSA (SCREENING) STAT 04/18/2025 10:28 AM EDT Screening for prostate cancer LIPID PANEL Routine 06/23/2024 5:27 AM EST from Last 3 Months or Most Recently Relevant to Health Maintenance Results * PT-INR (04/18/2025 10:28 AM EDT) PT 11.4 10.2 - 12.9 sec [facility] INR 0.9 0.9 - 1.1 [facility] Comment:Therapeutic range fo r oral Vitamin K antagonists: 2.0-3.5 Blood 04/18/2025 10:2 8 AM EDT 04/18/2025 10:30 AM EDT us Babar Pena MD LAB BLOOD ORDERABLES Fin al Result Performing Organization Address City/State/[facility] Co de Phone Number [facility] [address] [place] [address] * (ABNORMAL) CBC and differential (04/18/2025 10:28 AM EDT) WBC 5.29 4.00 - 11.00 K/uL [facility] RBC 3.87(L) 4.50 - 5.90 M/uL [facility] HGB 12.5(L) 13.5 - 17.5 g/dL [facility] HCT 37.9(L) 41.0 - 53.0 % [facility] PLT 230 150 - 450 K/uL [facility] MCV 97.9 80.0 - 100.0 fL [facility] MCH 32.3(H) 27.0 - 31.0 pg [facility] MCHC 33.0 32.0 - 36.0 g/dL [facility] RDW 13.5 11.5 - 14.5 % [facility] MPV 9.2 8.4 - 12.0 fL [facility] NRBC 0.00 0.00 /100 WBCs [facility] ABSOLUTE NRBC 0.00 0.00 K/uL [facility] DIFF METHOD Auto [facility] NEUTS 60.9 48.0 - 76.0 % [facility] LYMPHS 23.6 18.0 - 41.0 % [facility] MONOS 10.8 4.0 - 11.0 % [facility] EOS 3.6 0.0 - 5.0 % [facility] BASOS 0.9 0.0 - 1.5 % [facility] Granulocytes, immature (%) 0.2 0.0 - 0.9 % [facility] ABSOLUTE NEUTS 3.22 1.92 - 7.60 K/uL [facility] ABSOLUTE LYMPHS 1.25 0.72 - 4.10 K/uL [facility] ABSOLUTE MONOS 0.57 0.16 - 1.10 K/uL [facility] ABSOLUTE EOS 0.19 0.00 - 0.50 K/uL [facility] ABSOLUTE BASOS 0.05 0.00 - 0.15 K/uL [facility] Granulocytes, immature 0.01 0.00 - 0.09 K/uL [facility] Blood 04/18/2025 10:2 8 AM EDT 04/18/2025 10:30 AM EDT us Babar Pena MD LAB BLOOD ORDERABLES Fin al Result Performing Organization Address City/[facility]/ZIP Co de Phone Number [address] [address] * (ABNORMAL) PSA (screening) (04/18/2025 10:28 AM EDT) PSA 17.50(H) 0 - 4.00 ng/mL [facility] Comment: Test Methodology Maria C [id number] Patient results determined by assays using different manufacturers or methods may not be comparable. Blood 04/18/2025 10:2 8 AM EDT 04/18/2025 10:31 AM EDT us Mykel Stokes MD LAB BLOOD ORDERABLES Fin al Result [address] [address] * Basic metabolic panel (04/18/2025 10:28 AM EDT) SODIUM 134 133 - 146 mmol/L [facility] CHLORIDE 101 96 - 108 mmol/L [facility] POTASSIUM 4.9 3.3 - 5.1 mmol/L [facility] CO2 25 21 - 35 mmol/L [facility] BUN 16 6 - 19 mg/dL [facility] CREATININE 0.90 0.5 - 1.5 mg/dL [facility] GLUCOSE 98 70 - 99 mg/dL [facility] CALCIUM 9.6 8.4 - 10.3 mg/dL [facility] EGFR 84 >59 mL/min/1.7 3m2 [facility] Comment:Estimated glomerular filtration rate calculated using the CKD-EPI refit equation. ANION GAP 13 10 - 20 mmol/L [facility] Blood 04/18/2025 10:2 8 AM EDT 04/18/2025 10:30 AM EDT us Babar Pena MD LAB BLOOD ORDERABLES Fin al Result Performing Organization Address City/State/[facility] Co de Phone Number [address] [address] * (ABNORMAL) Lipid panel (06/23/2024 5:27 AM EST) HDL 86 mg/dL [facility] Comment: Interpretation <40 mg/dL: Low HDL cholesterol (major risk factor for CHD) Greater than or equal to 60 mg/dL: High HDL cholesterol ( negative risk factor for CHD) HDL - cholesterol is affected by a number of factors, e.g. smoking, excerise, hormones, sex and age. CHOLESTEROL 224 0 - 240 mg/dL [facility] TRIGLYCERIDES 98 30 - 160 mg/dL [facility] LDL 118 50 - 129 mg/dL [facility] Comment: LDL levels in terms of risk for coronary heart disease: <100 mg/dL: Optimal 100-129 mg/dL: Near or above optimal 130-159 mg/dL: Borderline high 160-189 mg/dL: High >190 mg/dL: Very High CARDIAC RISK RATIO 2.6(L) 3.4 - 5.0 C [facility] Blood 06/23/2024 5:27 AM EST 06/23/2024 6:06 AM EST us Mareg Duron GUARD RANGE LAB BLOOD ORDERABLES nal Result [facility] [address] [place] [address] from Last 3 Months or Most Recently Relevant to Health Maintenance Insurance MEDICARE PPO BLUE REPLACEMENT MEDICARE PPO BLUE REPLACEMENT MEDICARE PPO BLUE REPLACEMENT MEDICARE PPO BLUE REPLACEMENT MEDICARE PPO BLUE REPLACEMENT MEDICARE PPO BLUE REPLACEMENT MEDICARE PPO BLUE REPLACEMENT MEDICARE PPO BLUE REPLACEMENT MEDICARE PPO BLUE REPLACEMENT Advance Directives For more information, please contact: [phone] (9AM - 5PM [facility], Monday-Monday) Documents on File Type Date Recorded Patient Auto Job Estimator Expl anation Healthcare Proxy 06/24/2024 4:33 PM * Full Code (Latest Code Status on File) Date Activated Date Inactivated Comments 06/22/2024 1:48 PM Question Answer Comments Code Status Confirmed With: Patient Care Teams Category Manager Relationship Specialty Start Date End Date Yrn Calderon DO [address] [place] [address] PCP - General Internal Medicine 01/15/15 Jerome Jackson MD [address] [place] [address], [facility] [address] [place] [address] [email or web address] Historical LMR Provider 05/18/17 Yrn Calderon DO [address] [place] [address] Historical LMR Provider 05/18/17 Lalo Hills MD [address] [place] [address] [email or web address] Historical LMR Provider 05/18/17 Additional Source Comments The information contained in this document represents components of the legal health record. It is not the complete legal health record.[facility]
--- OUTSIDE RECORDS SUMMARY | 2025-05-20 12:49 | XMS_ITS | Encounter Summary ---
Author Organization [facility] Address [address] [place] [address] Phone Care Team Providers Care Long Wall Mining Machine Helper Name Role Phone Yrn Calderon DO Primary Care Provider Jerome Jackson MD Unavailable Yrn Calderon DO Unavailable Baljeet Alexander MD Unavailable [phone] Dianna London MD Unavailable Lalo Hills MD Unavailable [phone] Encounter Details Date Type Department Care Team (Latest Contact Info) Description 11/05/2018 Transcribe Orders [facility] Laboratory [address] [place] [address] Marco A Jalloh MD [address] [place] [address], [address] [address] [email or web address] Malignant neoplasm of prostate (Primary Dx) Social [...] EDT) PSA 11.55(H) 0 - 4.00 ng/mL [facility] Blood 11/05/2018 12:3 1 PM EDT 11/05/2018 12:34 PM EDT us Marco A Jalloh MD LAB BLOOD ORDERABLES Final Resu lt [facility] [address] [place] [address] documented in this encounter Visit Diagnoses Diagnosis Malignant neoplasm of prostate- Primary documented in this encounter Care Teams Long Wall Mining Machine Helper Relationship Specialty Start Date End Date Yrn Calderon DO [address] [place] [address] PCP - General Internal Medicine 01/15/15 Jerome Jackson MD [address] [place] [address] [email or web address] Historical LMR Provider 05/18/17 Yrn Calderon DO [address] [place] [address] Historical LMR Provider 05/18/17 Baljeet Alexander MD [address] [place] [address] [email or web address] Historical LMR Provider 05/18/17 08/07/21 Dianna London MD [address] [place] [address] Orthopedics & Sports Medicine, [facility] [place] [address] Historical LMR Provider 05/18/17 08/07/21 Lalo Hills MD [address] [address] [email or web address] Historical LMR Provider 05/18/17 documented as of this encounter Additional Source Comments The information contained in this document represents components of the legal health record. It is not the complete legal health record.[facility]
--- OUTSIDE RECORDS SUMMARY | 2025-05-20 12:49 | XMS_ITS | Encounter Summary ---
Author Organization [facility] Address [address] [place] [address] Phone Care Team Providers Care Agricultural Education Professor Name Role Phone Yrn Calderon DO Primary Care Provider [phone] Jerome Jackson MD Unavailable Yrn Calderon DO Unavailable [phone] Lalo Hills MD Unavailable [phone] Reason for Referral * MRI/CAT Scan - Closed Specialty Diagnoses / Procedures Referred By Contac t Referred To Contact Radiology Diagnoses Bilateral hip pain Prostate cancer Procedures NM Bone Scan NM Bone Scan Yrn Calderon DO [address] [place] [address] Phone: tel: fax: Referral ID Status Reason Start Date Expiration Date Visits Re quested Visits Authorized [id number] Closed 06/08/2022 06/08/2023 2 2 Encounter Details Date Type Department Care Team (Late st Contact Info) Description 06/08/2022 Ancillary Orders Virtual Department [address] [place] [address] Yrn Calderon DO [address] [place] [address] Bilateral hip pain; Prostate cancer Social History [...] MDP was injected. Scans were performed more than two hours later. Whole body images were acquired and appropriate spot views were obtained based upon review of the whole body images. COMPARISON: CT angiogram abdomen and pelvis 06/17/2021, pelvis x-ray 06/21/2022. FINDINGS: There are no scintigraphic findings suspicious [...] osseous metastatic disease. Noexplanation for hip pain. us Yrn Calderon DO IMG NM BONE SCAN Final Resul t * XR PELVIS AP INLET AND OUTLET [...] abnormality identified toaccount for patient's symptoms. Yrn Calderon DO IMG XR PELVIS Final Result documented in this encounter Visit Diagnoses Diagnosis Bilateral hip pain Pain in joint, pelvic region and thigh Prostate cancer Malignant neoplasm of prostate Bilateral hip pain Pain in joint, pelvic region and thigh Prostate cancer Malignant neoplasm of prostate Bilateral hip pain Pain in joint, pelvic region and thigh Prostate cancer Malignant neoplasm of prostate documented in this encounter Care Teams Agricultural Education Professor Relationship Specialty Start Date End Date Yrn Calderon DO [address] [place] [address] PCP - General Internal Medicine 01/15/15 Jerome Jackson MD [address] [place] [address], [facility] [address] [place] [address] [email or web address] Historical LMR Provider 05/18/17 Yrn Calderon DO [address] [place] [address] Historical LMR Provider 05/18/17 Lalo Hills MD [address] [place] [address] [email or web address] Historical LMR Provider 05/18/17 documented as of this encounter Additional Source Comments The information contained in this document represents components of the legal health record. It is not the complete legal health record.[facility]
--- OUTSIDE RECORDS SUMMARY | 2025-05-20 12:49 | XMS_ITS | Encounter Summary ---
Author Organization [facility] Address [address] [place] [address] Phone Care Team Providers Care Movie Projectionist Name Role Phone Yrn Calderon DO Primary Care Provider Jerome Jackson MD Unavailable [phone] Yrn Calderon DO Unavailable Baljeet Alexander MD Unavailable [phone] Dianna London MD Unavailable [phone] Lalo Hills MD Unavailable [phone] Reason for Referral * Speech Therapy (Routine) - Closed Specialty Diagnoses / Procedures Referred By David t Referred To Contact Speech Pathology Yrn Calderon DO [address] [place] [address] Phone: tel: fax: [facility] [address] [place] [address] Phone: tel: Referral ID Status Reason Start Date Expiration Date Visits Re quested Visits Authorized [id number] Closed 12/19/2019 12/18/2020 99 99 Encounter Details Date Type Department Care Team (Latest Contact Info) Description 12/19/2019 Transcribe Orders [facility] [address] [place] [address] Yrn Calderon DO [address] [place] [address] Encounter for rehabilitation (Primary Dx) Social History [...] as of this encounter Plan of Treatment Scheduled Referrals Name Type Priority Associated Diagnoses Order Schedule Ambulatory referral to [facility] Speech Language Pathology Outpatient Referral Routine Ordered: 12/19/2019 documented as of this encounter Visit Diagnoses Diagnosis Encounter for rehabilitation- Primary documented in this encounter Care Teams Movie Projectionist Relationship Specialty Start Date End Date Yrn Calderon DO [address] [place] [address] PCP - General Internal Medicine 01/15/15 Jerome Jackson MD [address] [place] [address] [email or web address] Historical LMR Provider 05/18/17 Yrn Calderon DO [address] [place] [address] Historical LMR Provider 05/18/17 Baljeet Alexander MD [address] [place] [address] [email or web address] Historical LMR Provider 05/18/17 08/07/21 Dianna London MD [address] [place] [address] Orthopedics & Sports Medicine, [place] [address] [email or web address] Historical LMR Provider 05/18/17 08/07/21 Lalo Hills MD [address] [place] [address] [email or web address] Historical LMR Provider 05/18/17 documented as of this encounter Additional Source Comments The information contained in this document represents components of the legal health record. It is not the complete legal health record.[facility]
--- OUTSIDE RECORDS SUMMARY | 2025-05-20 12:50 | XMS_ITS | Encounter Summary ---
Author Organization [facility] Address [address] [place] [address] Phone Care Team Providers Care Aluminum Shingle Roofer Name Role Phone Yrn Calderon DO Primary Care Provider [phone] Jerome Jackson MD Unavailable [phone] Yrn Calderon DO Unavailable Lalo Hills MD Unavailable [phone] Encounter Details Date Type Department Care Team (Late st Contact Info) Description 06/22/2024 Procedure Pass [facility], Ct Scan - [address] [address] Social History Tobacco Use Types Packs/Day Years [...] on file documented as of this encounter Functional Status * Calculated C-SSRS Risk Score (Lifetime/Recent) Answer Date of Assessment Author No Risk Indicated 06/22/2024 9:49 PM Nicho Rodriguez RN * [place] Suicide Severity Rating Scale (Screener/Recent Self-Report) Question Answer Date of Assessment Author 1. Wish to be (Past 1 Month) No 024 9:49 PM Nicho Rodriguez RN 2. Non-Specific Active Suici kirby Thoughts (Past 1 Month) No 06/22/2024 9:49 PM Bernabe Rodriguez RN 6. Suicidal Behavior (Lifetime) No 9:49 PM EST Nicho Douglass RN documented as of this encounter Plan of Treatment Not on file documented as of this encounter Visit Diagnoses Not on filedocumented in this encounter Care Teams Aluminum Shingle Roofer Relationship Specialty Start Date End Date Yrn Calderon DO [address] [place] [address] PCP - General Internal Medicine 01/15/15 Jerome Jackson MD [address] [place] [address], [address] [place] [address] [email or web address] Historical LMR Provider 05/18/17 Yrn Calderon DO [address] [place] [address] Historical LMR Provider 05/18/17 Lalo Hills MD [address] [place] [address] [email or web address] Historical LMR Provider 05/18/17 documented as of this encounter Additional Source Comments The information contained in this document represents components of the legal health record. It is not the complete legal health record.[facility]
--- OUTSIDE RECORDS SUMMARY | 2025-05-20 12:50 | XMS_ITS | Encounter Summary ---
Author Organization [facility] Address [address] [place] [address] Phone Care Team Providers Care Medicare Coordinator Name Role Phone Yrn Calderon DO Primary Care Provider Jerome Jackson MD Unavailable Yrn Calderon DO Unavailable Baljeet Alexander MD Unavailable Dianna London MD Unavailable Lalo Hills MD Unavailable [phone] Encounter Details Date Type Department Care Team (Latest Contact Info) Description 02/26/2021 Transcribe Orders Virtual Department [address] [place] [address] Ester Khoury [place] [address] [address] [email or web address] Hydrocele, unspecified hydrocele type (Primary Dx) Social [...] Primary documented in this encounter Care Teams Medicare Coordinator Relationship Specialty Start Date End Date Yrn Calderon DO [address] [place] [address] PCP - General Internal Medicine 01/15/15 Jerome Jackson MD [address] [place] [address] [address] [place] [address] [email or web address] Historical LMR Provider 05/18/17 Yrn Calderon DO [address] [place] [address] Historical LMR Provider 05/18/17 Baljeet Alexander MD [address] [place] [address] [email or web address] Historical LMR Provider 05/18/17 08/07/21 Dianna London MD [address] [place] [address] Orthopedics & Sports Medicine, [place] [address] [email or web address] Historical LMR Provider 05/18/17 08/07/21 Lalo Hills MD [address] [place] [address] [email or web address] Historical LMR Provider 05/18/17 documented as of this encounter Additional Source Comments The information contained in this document represents components of the legal health record. It is not the complete legal health record.[facility]
--- OUTSIDE RECORDS SUMMARY | 2025-05-20 12:50 | XMS_ITS | Encounter Summary ---
Author Organization [facility] Address [address] [place] [address] Phone Care Team Providers Care Harmonica Maker Name Role Phone Yrn Calderon DO Primary Care Provider Jerome Jackson MD Unavailable [phone] Yrn Calderon DO Unavailable Baljeet Alexander MD Unavailable Dianna London MD Unavailable Lalo Hills MD Unavailable [phone] Encounter Details Date Type Department Care Team (Late st Contact Info) Description 06/17/2021 Procedure Pass [facility], Ct Scan - [address] [address] Social History Tobacco Use Types Packs/Day Years [...] Date of Assessment Author No Risk Indicated 06/17/2021 3:16 PM EST Socorro Corona RN * [place] Suicide Severity Rating Scale (Screener/Recent Self-Report) Question Answer Date of Assessment Author 1. Wish to be (Past 1 Month) No 021 3:16 PM Socorro Gonsalez, SHIMA 2. Non-Specific Active Suici kirby Thoughts (Past 1 Month) No 06/17/2021 3:16 PM Marley Gonsalez RN documented as of this encounter Plan of Treatment Not on file documented as of this encounter Visit Diagnoses Not on filedocumented in this encounter Care Teams Harmonica Maker Relationship Specialty Start Date End Date Yrn Calderon DO [address] [place] [address] PCP - General Internal Medicine 01/15/15 Jerome Jackson MD [address] [place] [address] [address] [place] [address] [email or web address] Historical LMR Provider 05/18/17 Yrn Calderon DO [address] [place] [address] Historical LMR Provider 05/18/17 Baljeet Alexander MD [address] [place] [address] [address] [place] [address] [email or web address] Historical LMR Provider 05/18/17 08/07/21 Dianna London MD [address] [place] [address] Orthopedics & Sports Medicine, [place] [address] [email or web address] Historical LMR Provider 05/18/17 08/07/21 Lalo Hills MD [address] [place] [address] [email or web address] Historical LMR Provider 05/18/17 documented as of this encounter Additional Source Comments The information contained in this document represents components of the legal health record. It is not the complete legal health record.[facility]
--- OUTSIDE RECORDS SUMMARY | 2025-05-20 12:50 | XMS_ITS | Encounter Summary ---
Author Organization [facility] Address [facility] [address] [place] [address] Phone Care Team Providers Care Code Machine Operator Name Role Phone Yrn Calderon DO Primary Care Provider Jerome Jackson MD Unavailable Yrn Calderon DO Unavailable Lalo Hills MD Unavailable [phone] Encounter Details Date Type Department Care Team (Late st Contact Info) Description 05/25/2023 Ancillary Orders [facility], X-Ray - [address] [address] Yrn Calderon, DO [address] [place], [place] [id number] Acute pain of right knee Social History [...] dislocation. Yrn Calderon DO IMG XR LOWER EXTREMITY Final Result documented in this encounter Visit Diagnoses Diagnosis Acute pain of right knee Acute pain of right knee documented in this encounter Care Teams Code Machine Operator Relationship Specialty Start Date End Date Yrn Calderon DO [address] [place] [address] PCP - General Internal Medicine 01/15/15 Jerome Jackson MD [address] [place] [address], [facility] [address] [place] [address] [email or web address] Historical LMR Provider 05/18/17 Yrn Calderon DO [address] [place] [address] Historical LMR Provider 05/18/17 Lalo Hills MD [address] [place] [address] [email or web address] Historical LMR Provider 05/18/17 documented as of this encounter Additional Source Comments The information contained in this document represents components of the legal health record. It is not the complete legal health record.[facility]
--- OUTSIDE RECORDS SUMMARY | 2025-05-20 12:50 | XMS_ITS | Encounter Summary ---
Author Organization [facility] Address [address] [place] [address] Phone Care Team Providers Care Licensed Esthetician Name Role Phone Yrn Calderon DO Primary Care Provider [phone] Jerome Jackson MD Unavailable [phone] Yrn Calderon DO Unavailable [phone] Lalo Hills MD Unavailable [phone] Encounter Details Date Type Department Care Team (Late st Contact Info) Description 06/22/2024 Procedure Pass [facility], Ct Scan - [address] [address] Social History Tobacco Use Types Packs/Day Years [...] 06/22/2024 9:49 PM Nicho Rodriguez RN * [place] Suicide Severity Rating Scale (Screener/Recent Self-Report) Question [...] on filedocumented in this encounter Care Teams Licensed Esthetician Relationship Specialty Start Date End Date Yrn Calderon DO [address] [place] [address] PCP - General Internal Medicine 01/15/15 Jerome Jackson MD [address] [place] [address], [address] [place] [address] [email or web address] Historical LMR Provider 05/18/17 Yrn Calderon DO [address] [place] [address] Historical LMR Provider 05/18/17 Lalo Hills MD [address] [place] [address] [email or web address] Historical LMR Provider 05/18/17 documented as of this encounter Additional Source Comments The information contained in this document represents components of the legal health record. It is not the complete legal health record.[facility]
--- OUTSIDE RECORDS SUMMARY | 2025-05-20 12:50 | XMS_ITS | Encounter Summary ---
Author Organization [facility] Address [address] [facility] [address] [place] [address] Phone Care Team Providers Care Axle Bearing Polisher Name Role Phone Yrn Calderon DO Primary Care Provider Jerome Jackson MD Unavailable Yrn Calderon DO Unavailable Lalo Hills MD Unavailable [phone] Encounter Details Date Type Department Care Team (Late st Contact Info) Description 06/22/2024 Procedure Pass [facility], [address] [address] Social History Tobacco Use Types Packs/Day Years [...] 06/22/2024 9:49 PM Nicho Rodriguez RN * [place] Suicide Severity Rating Scale (Screener/Recent Self-Report) Question Answer Date of Assessment Author 1. Wish to be (Past 1 Month) No 024 9:49 PM Nicho Rodriguez RN 2. Non-Specific Active Suici kirby Thoughts (Past 1 Month) No 06/22/2024 9:49 PM Bernabe Rodriguez RN 6. Suicidal Behavior (Lifetime) No 9:49 PM Nicho Rodriguez, RN documented as of this encounter Plan of Treatment Not on file documented as of this encounter Visit Diagnoses Not on filedocumented in this encounter Care Teams Axle Bearing Polisher Relationship Specialty Start Date End Date Yrn Calderon DO [address] [place] [address] PCP - General Internal Medicine 01/15/15 Jerome Jackson MD [address] [place] [address], [address] [place] [address] [email or web address] Historical LMR Provider 05/18/17 Yrn Calderon DO [address] [place] [address] Historical LMR Provider 05/18/17 Lalo Hills MD [address] [place] [address] [email or web address] Historical LMR Provider 05/18/17 documented as of this encounter Additional Source Comments The information contained in this document represents components of the legal health record. It is not the complete legal health record.[facility]
--- OUTSIDE RECORDS SUMMARY | 2025-05-20 12:50 | XMS_ITS | Encounter Summary ---
Author Organization [facility] Address [address] [place] [address] Phone Care Team Providers Care Alarm Operator Name Role Phone Yrn Calderon DO Primary Care Provider [phone] Jerome Jackson MD Unavailable Yrn Calderon DO Unavailable [phone] Baljeet Alexander MD Unavailable [phone] Dianna London MD Unavailable [phone] Lalo Hills MD Unavailable [phone] Encounter Details Date Type Department Care Team (Latest Contact Info) Description 02/26/2021 Transcribe Orders Virtual Department 30 [place] [address] Ester Khoury PA [address] [address] [email or web address] Hydrocele, unspecified hydrocele type (Primary Dx) Social [...] calculi. Narrative 03/08/2021 11:00 AM EDT COMPARISON: None. RENAL AND BLADDER ULTRASOUND FINDINGS: Bladder: Suboptimal distention. Prevoid volume is 163 cc. Patient did not have the urge to void. Diffuse bladder wall irregularity and mild thickening which is limited in assessment due to under distention. No discrete masses or calculi. Moderate prostatomegaly. Kidneys: Right kidney measures 11 x 4 cm. No hydronephrosis or masses. Multiple sub-5 mm non-shadowing echogenic foci Cortical echogenicity and thickness are normal. No perinephric fluid collections. Left kidney measures 11 x 6 cm. No hydronephrosis or masses. Multiple sub-5 mm non-shadowing echogenic foci. Cortical echogenicity and thickness are normal. No perinephric fluid collections. Procedure Note Reji Brooks [...] bilateral sub-5 mm nonobstructing calculi. Ester A[facility]A [facility] Final Result documented in this encounter Visit Diagnoses Diagnosis Hydrocele, unspecified hydrocele type- Primary Hydrocele, unspecified hydrocele type documented in this encounter Care Teams Alarm Operator Relationship Specialty Start Date End Date Yrn Calderon DO [address] [place] [address] PCP - General Internal Medicine 01/15/15 Jerome Jackson MD [address] [place] [address] [email or web address] Historical LMR Provider 05/18/17 Yrn Calderon DO [address] [place] [address] Historical LMR Provider 05/18/17 Baljeet Alexander MD [address] [place] [address] [email or web address] Historical LMR Provider 05/18/17 08/07/21 Dianna London MD [address] [place] [address] Orthopedics & Sports Medicine, [place] [address] Historical LMR Provider 05/18/17 08/07/21 Lalo Hills MD [address] [place] [address] [email or web address] Historical LMR Provider 05/18/17 documented as of this encounter Additional Source Comments The information contained in this document represents components of the legal health record. It is not the complete legal health record.[facility]
--- OUTSIDE RECORDS SUMMARY | 2025-05-20 12:50 | XMS_ITS | Encounter Summary ---
Author Organization [facility] Address [facility] [address] [place] [address] Phone Care Team Providers Care Crusher Name Role Phone Yrn Calderon DO Primary Care Provider Jerome Jackson MD Unavailable [phone] Yrn Calderon DO Unavailable [phone] Baljeet Alexander MD Unavailable [phone] Dianna London MD Unavailable [phone] Lalo Hills MD Unavailable [phone] Encounter Details Date Type Department Care Team (Latest Contact Info) Description 10/16/2017 Transcribe Orders [facility] Laboratory 30 [place] [address] Lalo Hills MD [address] [address] [email or web address] Pure hypercholesterolemia (Primary Dx) Social History Tobacco [...] ALKALINE PHOSPHATASE 62 39 - 117 U/L [facility] TOTAL BILIRUBIN 1.3(H) 0.0 - 1.2 mg/dL [facility] DIRECT BILIRUBIN <0.2 0 - 0.3 mg/dL [facility] Bilirubin (Indirect) NOT CALCULATED 0 - 1.5 mg/dL [facility] AST 30 0 - 37 U/L [facility] ALT 28 0 - 40 U/L [facility] TOTAL PROTEIN 7.3 6.5 - 8.0 g/dL [facility] ALBUMIN 4.5 3.9 - 4.8 g/dL [facility] GLOBULIN 2.8 1 - 4.8 g/dL [facility] A/G Ratio 1.61 1.00 - 4.80 RATIO [facility] Blood 10/16/2017 12:0 4 PM EDT 10/16/2017 12:08 PM EDT us Lalo Hills MD LAB BLOOD ORDERABLES Final Resu lt Performing Organization Address City/State/[facility] Co de Phone Number [facility] [address] [place] [address] * (ABNORMAL) Basic metabolic panel (10/16/2017 12:04 PM EDT) SODIUM 142 133 - 146 mmol/L [facility] CHLORIDE 102 96 - 108 mmol/L [facility] POTASSIUM 4.5 3.3 - 5.1 mmol/L [facility] CO2 28 21 - 35 mmol/L [facility] BUN 21(H) 6 - 19 mg/dL [facility] CREATININE 1.00 0.5 - 1.5 mg/dL [facility] GLUCOSE 79 70 - 99 mg/dL [facility] CALCIUM 9.6 8.4 - 10.3 mg/dL [facility] EGFR 72 >59 mL/min/1.7 3m2 [facility] Comment:If patient is black, multiply result by 1.159. The eGFR calculation has changed from the MDRD equation to the CKD-EPI equation as of October 03, 2017. ANION GAP 17 10 - 20 mmol/L [facility] Blood 10/16/2017 12:0 4 PM EDT 10/16/2017 12:08 PM EDT us Lalo Hills MD LAB BLOOD ORDERABLES Final Resu lt Performing Organization Address [facility] de Phone Number [address] [address] * (ABNORMAL) Lipid panel (10/16/2017 12:04 PM EDT) HDL 101 mg/dL [facility] Comment: Interpretation: Risk Level Males Decreased >45 mg/dL Average 40-45 mg/dL Increased <40 mg/dL CHOLESTEROL 206 0 - 240 mg/dL [facility] TRIGLYCERIDES 68 30 - 160 mg/dL [facility] LDL 91 50 - 129 mg/dL [facility] Comment: LDL levels in terms of risk for coronary heart disease: <100 mg/dL: Optimal 100-129 mg/dL: Near or above optimal 130-159 mg/dL: Borderline high 160-189 mg/dL: High >190 mg/dL: Very High CARDIAC RISK RATIO 2.0(L) 3.4 - 5.0 [facility] Blood 10/16/2017 12:0 4 PM EDT 10/16/2017 12:08 PM EDT us Lalo Hills MD LAB BLOOD ORDERABLES Final Resu lt Performing Organization Address [facility] Co de Phone Number [address] [address] documented in this encounter Visit Diagnoses Diagnosis Pure hypercholesterolemia- Primary documented in this encounter Care Teams Crusher Relationship Specialty Start Date End Date Yrn Calderon DO [address] [place] [address] PCP - General Internal Medicine 01/15/15 Jerome Jackson MD [address] [place] [address], [address] [place] [address] [email or web address] Historical LMR Provider 05/18/17 Yrn Calderon DO [address] [place] [address] Historical LMR Provider 05/18/17 Baljeet Alexander MD 22 [facility] 301 [place] [address] [email or web address] Historical LMR Provider 05/18/17 08/07/21 Dianna London MD [address] [place] [address] Orthopedics & Sports Medicine, [place] [address] [email or web address] Historical LMR Provider 05/18/17 08/07/21 Lalo Hills MD [address] [place] [address] [email or web address] Historical LMR Provider 05/18/17 documented as of this encounter Additional Source Comments The information contained in this document represents components of the legal health record. It is not the complete legal health record.[facility]
--- OUTSIDE RECORDS SUMMARY | 2025-05-20 12:50 | XMS_ITS | Encounter Summary ---
Author Organization [facility] Address [address] [place] [address] [place] [address] Phone Care Team Providers Care Warehouse Man Name Role Phone Yrn Calderon DO Primary Care Provider Jerome Jackson MD Unavailable Yrn Calderon DO Unavailable [phone] Baljeet Alexander MD Unavailable Dianna London MD Unavailable [phone] Lalo Hills MD Unavailable [phone] Encounter Details Date Type Department Care Team (Late st Contact Info) Description 05/26/2020 Procedure Pass [facility] [address] [place], [place] [address] Social History Tobacco Use Types Packs/Day Years [...] on filedocumented in this encounter Care Teams Warehouse Man Relationship Specialty Start Date End Date Yrn Calderon DO [address] [place] [address] PCP - General Internal Medicine 01/15/15 Jerome Jackson MD [address] [address] [email or web address] Historical LMR Provider 05/18/17 Yrn Calderon DO [address] [place] [address] Historical LMR Provider 05/18/17 Baljeet Alexander MD [address] [address] [email or web address] Historical LMR Provider 05/18/17 08/07/21 Dianna London MD [address] [place] [address] Orthopedics & Sports Medicine, [place] [address] [email or web address] Historical LMR Provider 05/18/17 08/07/21 Lalo Hills MD [address] [place] [address] [email or web address] Historical LMR Provider 05/18/17 documented as of this encounter Additional Source Comments The information contained in this document represents components of the legal health record. It is not the complete legal health record.[facility]
--- OUTSIDE RECORDS SUMMARY | 2025-05-20 12:50 | XMS_ITS | Encounter Summary ---
Author Organization [facility] Address [facility] [address] [address] Phone Care Team Providers Care School Health Aide Name Role Phone Yrn Calderon DO Primary Care Provider [phone] Jerome Jackson MD Unavailable [phone] Yrn Calderon DO Unavailable Baljeet Alexander MD Unavailable Dianna London MD Unavailable Lalo Hills MD Unavailable [phone] Encounter Details Date Type Department Care Team (Latest Contact Info) Description 10/16/2017 Transcribe Orders [facility] Laboratory 30 [place] [address] Yrn Calderon DO [address] [place], [place] [address] Elevated PSA (Primary Dx) Social History Tobacco [...] PM EDT) PSA, TOTAL 15.4(H) <=6.5 ng/mL [facility] LAB MED/[address] FREE PSA 2.8 ng/mL [facility] MED/[facility] FREE/TOT PSA RATIO SEE NOTE ratio [facility] Comment: (NOTE) Ratio not calculated because clinical usefulness is not defined except in range of total PSA [...] 4 PM EDT 10/16/2017 12:07 PM EDT us Yrn Calderon DO LAB BLOOD ORDERABLES Final R esult [facility] DAXA GARCIA/[address] [place] [address] documented in this encounter Visit Diagnoses Diagnosis Elevated PSA- Primary Elevated prostate specific antigen (PSA) documented in this encounter Care Teams School Health Aide Relationship Specialty Start Date End Date Yrn Calderon DO [address] [place] [address] PCP - General Internal Medicine 01/15/15 Jerome Jackson MD [address] [place] [address], [facility] 301 [place] [address] [email or web address] Historical LMR Provider 05/18/17 Yrn Calderon DO [address] [place] [address] Historical LMR Provider 05/18/17 Baljeet Alexander MD 22 [facility] 301 [place] [address] [email or web address] Historical LMR Provider 05/18/17 08/07/21 Dianna London MD [address] [place] [address] Orth[facility] Sports Medicine, [place] [address] [email or web address] Historical LMR Provider 05/18/17 08/07/21 Lalo Hills MD 10 [facility] 1 [place] [address] [email or web address] Historical LMR Provider 05/18/17 documented as of this encounter Additional Source Comments The information contained in this document represents components of the legal health record. It is not the complete legal health record.[facility]
--- OUTSIDE RECORDS SUMMARY | 2025-05-20 12:50 | XMS_ITS | Clinical Summary ---
Author Organization [facility] Address [facility] [place] [address] Care Team Providers Care Figurine Maker Name Role Phone Yrn Calderon Primary Care Provider Allergies Active Allergy Reactions Criticality Noted Date [...] Active Active Problems No known active problems Encounters Date Type Department Care Team Description 03/14/2025 [place] [address] Araseli Banegas RN from Last 3 Months Social History Tobacco [...] 09/23/2021 6:40 AM EST Plan of Treatment Upcoming Encounters Date Type Department Care Team (Late st Contact Info) Description 06/05/2025 2:00 PM EST [place] [address] Mykel Stokes MD [facility] [place] [address] Health Maintenance Due Date Last Done Comments Tetanus/Diphtheria/Pertussis Vaccines (1 - Tdap) 09/01 Pneumoccocal Vaccine: 50+ (1 of 1 - PCV) 1990 Zoster vaccine (1 of 2) 1990 Advance Directive 1995 RSV Vaccine (1 - 1-dose 75+ series) 2015 Covid-19 Vaccine (1 - season) 2025 Influenza (Flu) vaccine (1 o f 1 - Influenza standard series) 03/31/2025 Insurance [employer] MA[employer]GED MEDICARE Care Teams Figurine Maker Relationship Specialty Start Date End Date Yrn Calderon DO [address] [place] [address] PCP - General Cardiology 05/07/21
== END 2025-05-20 12:10 | disposition home or self-care (01) ==
LOC: HO.HMCSH 10:41
PROVIDERS: PCP Internal Medicine; Visit Provider Internal Medicine
DX: Z23 Encounter for immunization (principal)

== ENCOUNTER → 2025-05-20 13:11 | Outpatient (BNV) | payer MEDICARE, SELFPAY | PROVIDERS: PCP Internal Medicine; Visit Provider Radiology Diagnostic Radiology | DX: J84.9 Interstitial pulmonary disease, unspecified (principal) | CPT/HCPCS: 71046 ==

== ENCOUNTER 2025-07-15 11:42 | Outpatient (AMB) | payer MEDICARE, SELFPAY ==
[2025-07-15 11:48] VITALS: BP 115/55; PULSE 64; TEMP 36.2; O2SAT 97; BMI 26.3
--- NOTE | 2025-07-15 11:48 | MHC.PC.OV ---
Vital Signs 07/15/25 11:48 Height 5 ft 10 in Weight 183 lb 0.6 oz BMI 26.3 BP 115/55 L Blood Pressure Location Rt brachial Pulse 64 Pulse Source Pulse Oximeter Temp 97.2 F Pulse Oximetry (%) 97 Intake Visit Reasons: 2 Month follow up Intake Note: Having a mild cold flu thing that has been hanging on for about 3 weeks, says he is having irregular heart beats but in touch with a technical information specialist. Allergies Sulfa (Sulfonamide Antibiotics) Allergy (Mild, Verified 07/15/25 13:30) Rash Medication List - Last Reconciled 07/15/25 by Jere Aparicio MD apixaban (Eliquis) 5 mg PO BID aspirin 81 mg PO DAILY ezetimibe 10 mg PO DAILY tamsulosin 0.4 mg PO DAILY temazepam 15 mg PO BEDTIME PRN Tobacco use date assessed: 05/20/25 Dental Screening Dental Screen Date: 05/20/25 HPI HPI Comments History of Present Illness Details History of Present Illness - The patient is an 84-year-old male presenting for a follow-up visit to discuss ongoing dizziness, anemia, shortness of breath, and chest pains. - Anemia was identified via blood work on May 15. - He has experienced shortness of breath for the past year, particularly when walking uphill or climbing stairs. - He reports low energy and gets tired going up and down stairs, needing to sit down after ascending them from a resting state. - In May, he was seen in the emergency room at [facility] for a rapid or irregular heartbeat and was diagnosed with atrial fibrillation. - He was started on Eliquis twice daily for this condition and also takes aspirin and a cholesterol medication. - An X-ray revealed interstitial lung disease, a new diagnosis for the patient. - He has a family history of two uncles and a cousin who may have from this condition. - The patient has a referral to a visual coordinator but has not yet attended the appointment. 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 - He undergoes yearly sonograms for monitoring, and the condition is reportedly stable since the procedure. Social History - The patient is still driving and performing all his usual activities. - He reports that his exercise level is not as good as it used to be. - His appetite is good, and he reports no weight loss. - He notes that his sense of taste has changed. Results - Blood work (05/15): Positive for anemia. - Chest X-ray (previous): Showed interstitial lung disease. - Portable chest X-ray (at [facility]): Did not show any abnormalities. - Carotid sonogram (yearly): Right carotid is completely blocked, stable since endarterectomy. [facility] Medical History Interstitial lung disease [place] scabies Insomnia Hyperlipidemia Prostate cancer Surgical History History of colonoscopy (~05/23/14) Family History Father No problems noted. Mother No problems noted. Social History Housing: [facility] Alcohol intake: current Alcohol intake frequency: does not drink Patient Tobacco Use Status: Never used Tobacco service: No Current occupational status: retired Cognitive needs: No Hearing needs: Yes (b/l hearing aids) Vision needs: Yes (reading glasses) Questionnaire PHQ-9 Over the last 2 weeks, how often have you been bothered by any of the following problems? 1. Little interest or pleasure in doing things: not at all 2. Feeling down, depressed, or hopeless: not at all 3. Trouble falling or staying asleep, or sleeping too much: not at all 4. Feeling tired or having little energy: not at all 5. Poor appetite or overeating: not at all 6. Feeling bad about yourself - or that you are a failure or have let yourself or your family down: not at all 7. Trouble concentrating on things, such as reading the newspaper or watching television: not at all 8. Moving or speaking so slowly that other people could have noticed. Or the opposite - being so fidgety or restless that you have been moving around a lot more than usual: not at all 9. Thoughts that you would be better off or of hurting yourself in some way: not at all Total score: 0 Depression Screening Interpretation: Negative Depression Screening Done: Yes 07856 - PHQ-9 Billing: Yes Source: Developed by Drs. Yrn Guajardo, Brett Varma and colleagues, with an educational susana from [employer]. Thrive Questionnaire Date Thrive assessed: 05/20/25 I am a: Patient What is your living situation today?: I have a steady place to live Within the past 12 months, did the food you bought not last and you didn't have the money to get more?: Never true Within the past 12 months, did you worry whether your food would run out before you got money to buy more?: Never true Do you have trouble paying for medicines?: No Do you have trouble getting transportation to medical appointments?: No Do you have trouble paying your heating and electricity bill?: No Do you have trouble taking care of your child, family member or friend?: No Do you have trouble with day-to-day activities such as bathing, preparing meals, shopping, managing finances, etc.?: No Are you currently unemployed and looking for a job?: No Are you interested in more education?: No Please select the resources that you would like help with: None THRIVE Score: 0 AUDIT C Alcohol Use Questionnaire (AUDIT-C) 1. How often do you have a drink containing alcohol?: Monthly or less 3. How often do you have six or more drinks on one occasion?: Never Total Score: 1 Score Reviewed/Action Taken: No ALPA-7 AMB Questionnaire ALPA-7 Date ALPA - 7 assessed: 05/20/25 Feeling nervous, anxious, or on edge: 0 = Not at all Not being able to stop or control worryin = Not at all Worrying too much about different things: 0 = Not at all Trouble relaxin = Not at all Being so restless that it is hard to sit still: 0 = Not at all Becoming easily annoyed or irritable: 0 = Not at all Feeling afraid as if something awful might happen: 0 = Not at all Total ALPA-7 score (0-4 normal; 5-9 mild; 10-14 moderate; 15-21 severe): 0 Source: Developed by Drs. Yrn Guajardo, Brett Varma and colleagues, with an educational susana from [employer]. ALPA-7 Assessment Billing ALPA-7 Assessment Tool: ALPA-7 Assessment 97191 Review of Systems Narrative Review of Systems - General: Reports feeling cold and having low energy. - HEENT: Reports a change in his sense of taste. - Cardiovascular: Reports intermittent irregular heartbeats and a history of rapid heartbeat and chest pains. - Respiratory: Reports shortness of breath with exertion, such as walking uphill or climbing stairs, which has persisted for the past year. - Neurological: Reports some dizziness. - Integumentary: Reports a skin issue for which he plans to see a oracle manufacturing consultant. - Constitutional: Reports sleeping well and denies weight loss. Physical exam (Primary Care) Vital Signs: Last Vital Signs Temp 97.2 F 07/15/25 11:48 Pulse 64 07/15/25 11:48 BP 115/55 L 07/15/25 11:48 Pulse Ox 97 07/15/25 11:48 BMI result Body Mass Index 26.3 Tobacco/Smoking Status: Tobacco use Status Tobacco use date assessed 05/20/25 07/15/25 11:55 Patient Tobacco Use Status Never used Tobacco 07/15/25 11:55 PHQ-9: PHQ-9 Score PHQ-9: Total score 0 07/15/25 11:55 Depression Screening Interpretation: Negative Thrive Assessment: Date of Thrive Assessment Date Thrive assessed 05/20/25 07/15/25 11:55 Narrative Physical Exam General: Appearance normal, both eyes and all related structures Nutritional Appearance: Well nourished Orientation/consciousness: Patient oriented x3 Limitations: Shortness of breath when walking uphill or climbing stairs Head: Normal to inspection Neck: Normal visual inspection Chest: Normal palpation of entire chest wall Respiratory: Interstitial lung disease noted; shortness of breath present Neurology: Patient oriented x3 Office Procedures Flu Questionnaire Does the patient have a severe egg allergy?: No Does the patient have severe life threatening allergies?: No Does the patient have a fever or illness today?: No Has the patient ever had Guillain-[place] Syndrome?: No Has the patient ever had any past reaction to a flu shot?: No Immunizations Fluarix [id number] (PF) 45 mcg (15 mcg x 3)/0.5 mL IM syringe Performing Provider: Jere Aparicio MD [place] [facility] [place] [facility] Documented (not given) by: Brionna Castellon on 07/15/25 11:55 Reason Not Given: Received Previously Coding Level of Care Code Est Pt Level 4 (98213) Add On Problem Visit Only Diagnoses Interstitial lung disease J84.9 Additional Codes ALPA-7 Assessment Billing - ALPA-7 Assessment Tool: ALPA-7 Assessment 62062 ([id number]) PHQ-9 - 78111 - PHQ-9 Billing: Yes ([id number]) Assessment & Plan Assessment & Plan (1) Interstitial lung disease: Code(s): J84.9 - Interstitial pulmonary disease, unspecified Category: Medical Plan Plan - The patient will continue with his referral to pulmonology to evaluate his interstitial lung disease, which is the suspected cause of his shortness of breath. - The visual coordinator is expected to perform a pulmonary function test. - A CAT scan of the chest will be ordered to further identify the interstitial lung disease. - The plan includes the potential use of inhalers to keep airways patent and prevent the lung disease from worsening. - The patient will continue Eliquis, aspirin, and a cholesterol medication. - The patient will see a oracle manufacturing consultant for an unspecified skin concern. - Will await the results from the pulmonology consult and the CAT scan to guide further management. Discussion Notes I discussed the finding of interstitial lung disease with the patient, which was new to him. I explained that interstitial lung disease involves hardening of the tissue between the air tubes in the lungs, which restricts their ability to expand and reduces oxygen exchange, especially during exertion. I informed him that while the disease process itself cannot be reversed, we can use treatments like inhalers to keep the airways open and prevent the condition from worsening. We discussed that the referral to the visual coordinator is to confirm if this is the cause of his shortness of breath and that they will likely perform pulmonary function tests. I advised that a CAT scan will be ordered for better characterization and that the main issue to address is the lung disease. We also reviewed his hospitalization for atrial fibrillation and his current regimen of Eliquis. We discussed his history of a completely blocked right carotid artery, noting that it is being monitored annually with sonograms and is considered stable. The patient acknowledged his upcoming pulmonology appointment in mid-July, and we agreed to wait for the CAT scan results. Patient Instructions - Continue taking your Eliquis, aspirin, and cholesterol medication as prescribed. - Make sure to attend your appointment with the lung specialist (visual coordinator) in mid-July. - We will be ordering a CAT scan of your chest to get a better look at your lungs. - Go to your appointment with the skin doctor (oracle manufacturing consultant) for your skin issue. - We will keep in touch and follow up after your specialist visit and CAT scan. Orders: Orders Influenza [id number] Immunization Today Z23 - Encounter for immunization
--- OUTSIDE RECORDS SUMMARY | 2025-07-15 15:31 | XMS_ITS | Encounter Summary ---
Author Organization [facility] Address [address] [place] [address] [place] [address] Phone Care Team Providers Care Crystal Grower Name Role Phone Yrn Calderon DO Primary Care Provider [phone] Jerome Jackson MD Unavailable Yrn Calderon DO Unavailable Baljeet Alexander MD Unavailable Dianna London MD Unavailable [phone] Lalo Hills MD Unavailable [phone] Pcp, Unknown Primary Care Provider Unavailabl e Encounter Details Date Type Department Care Team (Late st Contact Info) Description 05/26/2020 Procedure Pass [facility] [address] [place] [address] Social History Tobacco Use Types Packs/Day Years [...] on filedocumented in this encounter Care Teams Crystal Grower Relationship Specialty Start Date End Date Yrn Calderon DO [address] [place] [address] PCP - General Internal Medicine 01/15/15 05/28/25 Pcp, Unknown PCP - General 05/29/25 Jerome Jackson MD [address] [facility], [address] [place] [address] [email or web address] Historical LMR Provider 05/18/17 Yrn Calderon DO [address] [place] [address] Historical LMR Provider 05/18/17 Baljeet Alexander MD [facility] [address] [place] [address] [email or web address] Historical LMR Provider 05/18/17 08/07/21 Dianna London MD [address] [place] [address] [facility], [place] [address] [email or web address] Historical LMR Provider 05/18/17 08/07/21 Lalo Hills MD [address] [place] [address] [email or web address] Historical LMR Provider 05/18/17 documented as of this encounter Additional Source Comments The information contained in this document represents components of the legal health record. It is not the complete legal health record.[facility]
--- OUTSIDE RECORDS SUMMARY | 2025-07-15 15:31 | XMS_ITS | Encounter Summary ---
Author Organization [facility] Address [address] [place] [address] [place] [address] Phone Care Team Providers Care Chisel Trimmer Name Role Phone Yrn Calderon DO Primary Care Provider Jerome Jackson MD Unavailable Yrn Calderon DO Unavailable Baljeet Alexander MD Unavailable [phone] Dianna London MD Unavailable [phone] Lalo Hills MD Unavailable [phone] Pcp, Unknown Primary Care Provider Unavailabl e Encounter Details Date Type Department Care Team (Latest Contact Info) Description 02/26/2021 Transcribe Orders Virtual Department [address] [place] [address] Ester Khoury [place] [address] [address] [email or web address] Hydrocele, unspecified hydrocele type (Primary Dx) Social [...] Primary documented in this encounter Care Teams Chisel Trimmer Relationship Specialty Start Date End Date Yrn Calderon DO [address] [place] [address] PCP - General Internal Medicine 01/15/15 05/28/25 Pcp, Unknown PCP - General 05/29/25 Jerome Jackson MD [address] [place] [address], [address] [place] [address] [email or web address] Historical LMR Provider 05/18/17 Yrn Caledron DO [address] [place] [address] Historical LMR Provider 05/18/17 Baljeet Alexander MD [address] [place] [address] [address] [place] [address] [email or web address] Historical LMR Provider 05/18/17 08/07/21 Dianna London MD [address] [place] [address] Orthopedics & Sports Medicine, [facility] [place] [address] Historical LMR Provider 05/18/17 08/07/21 Lalo Hills MD [address] [place] [address] [email or web address] Historical LMR Provider 05/18/17 documented as of this encounter Additional Source Comments The information contained in this document represents components of the legal health record. It is not the complete legal health record.[facility]
--- OUTSIDE RECORDS SUMMARY | 2025-07-15 15:31 | XMS_ITS | Encounter Summary ---
Author Organization [facility] Address [facility]ly [facility] [address] [place] [address] Phone Care Team Providers Care Diamond Cleaner Name Role Phone Yrn Calderon DO Primary Care Provider Jerome Jackson MD Unavailable Yrn Calderon DO Unavailable Baljeet Alexander MD Unavailable Dianna London MD Unavailable Lalo Hills MD Unavailable [phone] Pcp, Unknown Primary Care Provider Unavailabl e Encounter Details Date Type Department Care Team (Late st Contact Info) Description 06/17/2021 Procedure Pass [facility], Ct Scan - [address] [address] Social History Tobacco Use Types Packs/Day Years [...] 3:16 PM EST Socorro Corona RN * [place] Suicide Severity Rating Scale (Screener/Recent Self-Report) Question Answer Date of Assessment Author 1. Wish to be (Past 1 Month) No 021 3:16 PM Socorro Gonsalez RN 2. Non-Specific Active Suici kirby Thoughts (Past 1 Month) No 06/17/2021 3:16 PM Marley Gonsalez RN documented as of this encounter Plan of Treatment Not on file documented as of this encounter Visit Diagnoses Not on filedocumented in this encounter Care Teams Diamond Cleaner Relationship Specialty Start Date End Date Yrn Calderon DO [address] [place] [address] PCP - General Internal Medicine 01/15/15 05/28/25 Pcp, Unknown PCP - General 05/29/25 Jerome Jackson MD [address] [place] [address] [email or web address] Historical LMR Provider 05/18/17 Yrn Calderon DO [address] [place] [address] Historical LMR Provider 05/18/17 Baljeet Alexander MD [address] [place] [address] [email or web address] Historical LMR Provider 05/18/17 08/07/21 Dianna London MD [address] [place] [address] Orthopedics & Sports Medicine, [place] [address] Historical LMR Provider 05/18/17 08/07/21 Lalo Hills MD [address] [place] [address] (work) [email or web address] Historical LMR Provider 05/18/17 documented as of this encounter Additional Source Comments The information contained in this document represents components of the legal health record. It is not the complete legal health record.[facility]
--- OUTSIDE RECORDS SUMMARY | 2025-07-15 15:31 | XMS_ITS | Clinical Summary ---
Author Organization [facility] Address [facility] [place] [address] Care Team Providers Care Ballast Cleaning Machine Operator Name Role Phone YumikoYrn hi Primary Care Provider Allergies Active Allergy Reactions [...] Take 10 mg by mouth daily. Active acetaminophen (Tylenol) 325 mg tablet Take by mouth. 06/20/2021 Active ivermectin (Stromectol) 3 mg tablet 03/06/2025 Active permethrin (Elimite) 5 % Cream 02/28/2025 Active tamsulosin (Flomax) 0.4 mg capsule TAKE ONE CAPSULE BY MOUTH EVERY DAY 90 capsule 3 06/09/2025 Active Active Problems No known active problems Encounters Date Type Department Care Team Description 06/12/2025 Telephone Anesthesiology at [address] [address] Luz Painter, HYDROPULPER 06/10/2025 Telephone Anesthesiology at [address] [phone] Anthony Krishnan, HYDROPULPER 06/09/2025 [place] [address] Mykel Stokes MD 06/06/2025 Telephone Anesthesiology at [address] [address] Anthony Krishnan, HYDROPULPER 06/05/2025 2:00 PM EST Office [place] [address] Mykel Stokes MD Benign prostatic hyperplasia, unspecified whether lower urinary tract symptoms present 06/05/2025 Travel from Last 3 Months Social History Tobacco [...] Sign Reading Time Taken Comments Blood Pressure 131/80 06/05/2025 2:11 PM EST Pulse 69 06/05/2025 2:11 PM EST Temperature 36 C (96.8 F) 09/23/2021 7:54 AM EST Respiratory Rate 12 09/23/2021 8:00 AM EST Oxygen Saturation 96% 10/28/2022 10:49 AM EDT Inhaled Oxygen Concentration - - Weight 73.5 kg (162 lb) 09/23/2021 6:56 AM EST Height 180.3 cm (5' 11 ) 09/23/2021 6:40 AM EST Body Mass Index 22.59 09/23/2021 6:40 AM EST Plan of Treatment Scheduled Procedures Name Priority Associated Diagnoses Date/Ti me CYSTO, LASER TURP (WRVU 12.15) Benign prostatic hyperplasia, unspecified whether lower urinary tract symptoms present Health Maintenance Due Date Last Done Comments Tetanus/Diphtheria/Pertussis Vaccines (1 - Tdap) 09/01 Pneumoccocal Vaccine: 50+ (1 of 1 - PCV) 1990 Zoster vaccine (1 of 2) 1990 Advance Directive 1995 RSV Vaccine (1 - 1-dose 75+ series) 2015 Covid-19 Vaccine ( - season) 2025 Influenza (Flu) vaccine (1 o f 1 - Influenza standard series) 03/31/2025 Procedures Procedure Name Priority Date/Time Associated Diagnosis Comments POC, URINALYSIS Routine 06/05/2025 2:07 PM EST from Last 3 Months Results * POC, URINALYSIS (06/05/2025 2:07 PM EST) Bilirubin, Urine POC Negative Negative 06/05/2025 2:08 PM [facility] Blood, Urine POC Negative Negative 06/05/2025 2:08 PM [facility] Glucose, Urine POC Negative Negative 06/05/2025 2:08 PM [facility] Ketone, Urine POC Negative Negative 06/05/2025 2:08 PM [facility] Leukocytes, Urine POC Negative Negative 06/05/2025 2:08 PM [facility] Nitrite, Urine POC Negative Negative 06/05/2025 2:08 PM [facility] Ph, Urine POC 6.0 5.0 - 8.0 06/05/2025 2:08 PM [facility] Protein, Urine POC Negative Negative 06/05/2025 2:08 PM [facility] Specific [place], Urine POC 1.015 1.005 - 1.030 06/05/2025 2:08 PM [facility] Urobilinogen, Urine POC 0.2 E.U./dL 0.2 E.U./dL, 1.0 E.U./dL 06/05/2025 2:08 PM [facility] Appearance, Urine POC Clear Clear 06/05/2025 2:08 PM [facility] Color, Urine POC Yellow Yellow, Dark Yellow, Light Yellow 06/05/2025 2:08 PM [facility] Urine 06/05/2025 2:07 PM EST 06/05/2025 2:08 PM EST us Mykel Stokes MD POINT OF CARE TEST ORDERABLES Final Result [facility] [place] [address] from Last 3 Months Insurance [facility] [place]NOTE 2] MEDICARE Care Teams Ballast Cleaning Machine Operator Relationship Specialty Start Date End Date Yrn Calderon DO [address] [place] [address] PCP - General Cardiology 05/07/21
--- OUTSIDE RECORDS SUMMARY | 2025-07-15 15:31 | XMS_ITS | Encounter Summary ---
Author Organization [facility] Address [address] [place] [address] Phone Care Team Providers Care Upholstery Trimmer Name Role Phone Yrn Calderon DO Primary Care Provider Jerome Jackson MD Unavailable [phone] Yrn Calderon DO Unavailable Lalo Hills MD Unavailable [phone] Pcp, Unknown Primary Care Provider Unavailabl e Encounter Details Date Type Department Care Team (Late st Contact Info) Description 06/22/2024 Procedure Pass [facility], Ct Scan - [address] [address] Social History Tobacco Use Types Packs/Day Years [...] 06/22/2024 9:49 PM Nicho Rodriguez RN * [place] Suicide Severity Rating Scale (Screener/Recent Self-Report) Question Answer Date of Assessment Author 1. Wish to be (Past 1 Month) No 024 9:49 PM Nicho Rodriguez RN 2. Non-Specific Active Suici kirby Thoughts (Past 1 Month) No 06/22/2024 9:49 PM Bernabe Rodriguez RN 6. Suicidal Behavior (Lifetime) No 11/23/202 4 9:49 PM EST Nicho Douglass RN documented as of this encounter Plan of Treatment Not on file documented as of this encounter Visit Diagnoses Not on filedocumented in this encounter Care Teams Upholstery Trimmer Relationship Specialty Start Date End Date Yrn Calderon DO [address] [place] [address] PCP - General Internal Medicine 01/15/15 05/28/25 Pcp, Unknown PCP - General 05/29/25 Jerome Jackson MD [address] [place] [address], [facility] [address] [place] [address] [email or web address] Historical LMR Provider 05/18/17 Yrn Calderon DO [address] [place] [address] Historical LMR Provider 05/18/17 Lalo Hills MD [address] [place] [address] [email or web address] Historical LMR Provider 05/18/17 documented as of this encounter Additional Source Comments The information contained in this document represents components of the legal health record. It is not the complete legal health record.[facility]
--- OUTSIDE RECORDS SUMMARY | 2025-07-15 15:31 | XMS_ITS | Clinical Summary ---
Author Organization [facility] Address [address] [place] [address] [place] [address] Phone Care Team Providers Care Fixed Wing Aircraft Flight Mechanic Name Role Phone Jerome Jackson MD Unavailable [phone] Yrn Calderon DO Unavailable [phone] Lalo Hills MD Unavailable [phone] Pcp, Unknown Primary Care Provider Unavailabl e Allergies Active Allergy Reactions Criticality Noted Date [...] ezetimibe (ZETIA) 10 mg tablet 01/25/2023 Active apixaban (ELIQUIS) 5 mg tablet Take 1 tablet (5 mg total) by mouth 2 (two) times a day. 60 tablet 05/29/2025 Active Active Problems Problem Noted Date Diagnosed [...] occluded right ICA Symptoms markedly improved overnight [facility] neurology recommended MRI, aspirin. If MRI positive recommended dual antiplatelet therapy. Will follow-up with [facility] neurologist today for further advice and diagnostic [...] that time. Otherwise the exam was nonfocal. [facility] neurology was called, note pending. Recommended MRI, continue home aspirin no new therapy. Call with MRI results. We will initiate the stroke workup with MRI, stroke labs, neurochecks, PT, OT, echocardiogram if available, laboratory monitor. Patient has known history of atrial flutter [...] the chart CPAP (continuous positive airway pressure) depen dence 01/17/2022 Hypersomnia 01/17/2022 History of transient ischemic attack (TIA) 08/05 Typical atrial flutter 05/26/2020 Assessment & Plan (06/23/2024 9:55 AM EST): Not anticoagulated as patient has had severe bleeding events and recurrent falls Assessment & Plan (06/22/2024 1:30 PM EST): As above, patient is not anticoagulated. He is currently off of the laboratory monitor in the ED, heart sounds are regular, twelve-lead EKG showed normal sinus rhythm Assessment & Plan (05/26/2020 4:05 PM EDT): He presented to [facility] with his first episode of atrial fibrillation RVR on May 21. He was successfully cardioverted. He was started on an anticoagulant. His ventricular response was as high as the 150s. I did start him on 25 mg of metoprolol succinate. I have ordered an echocardiogram. I have arranged for follow-up with an biomedical engineering technician to discuss more long-term management of his [...] Encounters Date Type Department Care Team Description 05/29/2025 11:13 AM EDT - 05/29/2025 1:59 PM EDT Emergency [facility] [address] [place] [address] Carlos Michelle MD Discharge Disposition: Home or Self Care 04/18/2025 10:13 AM EDT - 04/18/2025 11:59 PM EDT Hospital Encounter [facility] Main [address] [place] [address] Mykel Stokes MD Discharge Disposition: Home or Self Care 04/18/2025 Transcribe Orders [facility] Main [address] [place] [address] Babar Pena MD Personal history of unspecified circulatory disease (Primary Dx); Encounter for interrogation of cardiac recorder 04/18/2025 Transcribe Orders [facility] Main [address] [place] [address] Mykel Stokes MD Screening for prostate cancer [...] got money to buy more. Never True 05/29/2025 Within the past 6 months the food we bought just didn't last and we didn't have enough money to get more. Never True Residential Stability Answer Date Recor ded What is your housing situation today? I have antony leon 05/29/2025 How many times have you move d in the past 12 months? Zero (I did not move) 05/29/2025 Paying for Meds Answer Date Recorded Do you have trouble paying for medicines? No 05/29/2025 Paying Utility Bills Answer Date Record ed Do you have trouble paying your heating or elect ricity bill? No 05/29/2025 Transportation Answer Date Recorded Has the lack of transportati on kept you from medical appointments or from getting medications? No 05/29/2025 Digital Access Answer Date Recorded No 05/29/2025 Yes 05/29/2025 Do you have reliable internet access at home? Ye s 05/29/2025 Do you have a device (e.g., phone, tablet, computer) with a working camera? Yes 05/29/2025 Intimate Partner Violence Answer Date R ecorded Are you denied basic needs s uch as food, clothing, or medical care? No 05/29/2025 In the past 12 months have y ou been in a relationship with a person who hurts, threatens, or tries to control you? No 05/29/2025 Are you denied basic needs s uch as food, clothing, or medical care? No 05/29/2025 In the past 12 months have y ou been in a relationship with a person who hurts, threatens, or tries to control you? No 05/29/2025 Sex and Gender Information Value Date Recorded Sex Assigned at Male 11/30/2019 9:45 AM EDT Legal Sex Male 6:34 PM EST Gender Identity Male 11/30/2019 9:45 AM EDT Sexual Orientation Not on file Last Filed Vital Signs Vital Sign Reading Time Taken Comments Blood Pressure 113/67 05/29/2025 1:30 PM EDT Pulse 59 05/29/2025 1:30 PM EDT Temperature 36.4 C (97.5 F) 05/29/2025 11:19 AM EDT Respiratory Rate 10 05/29/2025 1:30 PM EDT Oxygen Saturation 100% 05/29/2025 1:30 PM EDT Inhaled Oxygen Concentration - - Weight 79.4 kg (175 lb) 05/29/2025 11:09 AM EDT Height 180.3 cm (5' 11 ) 05/29/2025 11:09 AM EDT Body Mass Index 24.41 05/29/2025 11:09 AM EDT Plan of Treatment Health Maintenance [...] this topic Medical Devices Implanted Type Area Parquet Floor Layer'S Helper Device Identifier Shelf Expiration Date Model / Serial / Lot Implantable Monitor-10/10/19 21 Implanted:10/09 (Quantity not on file) Implantable Monitor [employer] REVEAL LINQ II / / Procedures Procedure Name Priority Date/Time Associated Diagnosis Comments TROPONIN STAT 05/29/2025 12:45 PM EDT ECG 12-LEAD STAT 05/29/2025 12:43 PM EDT XR CHEST PORTABLE Routine 05/29/2025 11: 44 AM EDT NT-PROBNP STAT 05/29/2025 11:38 AM EDT TROPONIN STAT 05/29/2025 11:38 AM EDT BASIC METABOLIC PANEL (BMP) STAT 05/29/2025 11:38 AM EDT CBC AND DIFFERENTIAL STAT 05/29/2025 11:38 AM EDT ECG 12-LEAD STAT 05/29/2025 11:01 AM EDT BASIC METABOLIC PANEL (BMP) Routine 04/18/2025 10:28 AM EDT Personal history [...] Relevant to Health Maintenance Results * (ABNORMAL) Troponin (05/29/2025 12:45 PM EDT) Only the most recent of2 resultswithin the time period is included. Troponin-T, HS Gen5 22(H) 0 - 14 ng/L [facility] Blood 05/29/2025 12:4 5 PM EDT 05/29/2025 12:48 PM EDT us Carlos Michelle MD LAB BLOOD BKR ORDERABLES Final Result [facility] [address] [place] [address] * ECG 12-LEAD (05/29/2025 12:43 PM EDT) Only the most recent of2 resultswithin the time period is included. Ventricular Rate EKG/MIN 58 BPM [facility] Atrial Rate 58 BPM [facility] OR Interval 232 ms [facility] QRS Duration 112 ms [facility] QT Interval 444 ms [facility] QTC Interval 435 ms [facility] P Flatgap 79 degrees [facility] R Wave Flatgap -60 degrees [facility] T Wave Flatgap 40 degrees [facility] 05/29/2025 12:4 3 PM EDT 05/30/2025 2:07 PM EDT Narrative [facility] - 05/30/2025 2:07 PM EDT Sinus bradycardia with 1st degree A-V block Left anterior fascicular block Minimal voltage criteria for LVH, may be normal variant Possible Anterior infarct (cited on or before 29-May-2025) Abnormal ECG When compared with ECG of 29-May-2025 11:01, Sinus rhythm has replaced Atrial flutter Vent. rate has decreased by [address] no longer depressed in Lateral leads Confirmed by Jerome Jackson ([id number]) on 05/30/2025 2:07:54 PM us Lila Gruber PA-C ECG ORDERABLES Final Result [facility] * XR Chest Portable (05/29/2025 11:44 AM EDT) Anatomical Region Laterality Modality Chest Computed Radiogr aphy 05/29/2025 12:5 7 PM EDT Impressions 05/29/2025 12:58 PM EDT No acute abnormality. Narrative 05/29/2025 12:58 PM EDT XR CHEST PORTABLE Referring clinician's provided indication for this examination in Epic: Fatigue COMPARISON: XR CHEST PA AND LATERAL 2 VIEWS FINDINGS: Devices/Tubes/Lines: A loop recorder overlies the left chest. Lungs: No focal consolidation or pulmonary edema. Pleura: No pleural effusion or pneumothorax. Heart/Mediastinum: Similar in appearance. Procedure Note Dora Melara MD - 05/29/2025 XR CHEST PORTABLE Referring clinician's provided indication for this examination in Epic:Fatigue COMPARISON: XR CHEST PA AND LATERAL 2 VIEWS FINDINGS: Devices/Tubes/Lines: A loop recorder overlies the left chest. Lungs: No focal consolidation or pulmonary edema. Pleura: No pleural effusion or pneumothorax. Heart/Mediastinum: Similar in appearance. IMPRESSION: No acute abnormality. us Carlos Michelle MD IMG XR CHEST Final Re sult * (ABNORMAL) CBC and differential (05/29/2025 11:38 AM EDT) Only the most recent of2 resultswithin the time period is included. WBC 5.47 4.00 - 11.00 K/uL [facility] RBC 3.99(L) 4.50 - 5.90 M/uL [facility] HGB 13.2(L) 13.5 - 17.5 g/dL [facility] HCT 38.4(L) 41.0 - 53.0 % [facility] PLT 230 150 - 450 K/uL [facility] MCV 96.2 80.0 - 100.0 fL [facility] MCH 33.1(H) 27.0 - 31.0 pg [facility] MCHC 34.4 32.0 - 36.0 g/dL [facility] RDW 13.1 11.5 - 14.5 % [facility] MPV 9.2 8.4 - 12.0 fL [facility] NRBC 0.00 0.00 /100 WBCs [facility] ABSOLUTE NRBC 0.00 0.00 K/uL [facility] DIFF METHOD Auto [facility] NEUTS 65.4 48.0 - 76.0 % [facility] LYMPHS 20.7 18.0 - 41.0 % [facility] MONOS 11.0 4.0 - 11.0 % [facility] EOS 2.0 0.0 - 5.0 % [facility] BASOS 0.7 0.0 - 1.5 % [facility] Granulocytes, immature (%) 0.2 0.0 - 0.9 % [facility] ABSOLUTE NEUTS 3.58 1.92 - 7.60 K/uL [facility] ABSOLUTE LYMPHS 1.13 0.72 - 4.10 K/uL [facility] ABSOLUTE MONOS 0.60 0.16 - 1.10 K/uL [facility] ABSOLUTE EOS 0.11 0.00 - 0.50 K/uL [facility] ABSOLUTE BASOS 0.04 0.00 - 0.15 K/uL [facility] Granulocytes, immature 0.01 0.00 - 0.09 K/uL [facility] Blood 05/29/2025 11:3 8 AM EDT 05/29/2025 11:43 AM EDT us Reji Gómez MD LAB BLOOD BKR ORD ERABLES Final Result Performing Organization Address City/[facility]/ZIP Co de Phone Number [address] [address] * (ABNORMAL) NT-proBNP (05/29/2025 11:38 AM EDT) Pathologist [facility] NT-PROBNP 455(H) 0 - 450 pg/mL [facility] Blood 05/29/2025 11:3 8 AM EDT 05/29/2025 11:43 AM EDT us Carlos Michelle MD LAB BLOOD BKR ORDERABLES Final Result [address] [address] * (ABNORMAL) Basic metabolic panel (05/29/2025 11:38 AM EDT) Only the most recent of2 resultswithin the time period is included. SODIUM 135 133 - 146 mmol/L [facility] CHLORIDE 99 96 - 108 mmol/L [facility] POTASSIUM 4.1 3.3 - 5.1 mmol/L [facility] CO2 23 21 - 35 mmol/L [facility] BUN 17 6 - 19 mg/dL [facility] CREATININE 1.00 0.5 - 1.5 mg/dL [facility] GLUCOSE 113(H) 70 - 99 mg/dL [facility] CALCIUM 9.3 8.4 - 10.3 mg/dL [facility] EGFR 74 >59 mL/min/1.7 3m2 [facility] Comment:Estimated glomerular filtration rate calculated using the CKD-EPI refit equation. ANION GAP 17 10 - 20 mmol/L [facility] Blood 05/29/2025 11:3 8 AM EDT 05/29/2025 11:43 AM EDT us Reji Gómez MD LAB BLOOD BKR ORD ERABLES Final Result Performing Organization Address [facility]/ZIP Co de Phone Number [address] [address] * PT-INR (04/18/2025 10:28 AM EDT) PT 11.4 10.2 - 12.9 sec [facility] INR 0.9 0.9 - 1.1 [facility] Comment:Therapeutic range fo r oral Vitamin K antagonists: 2.0-3.5 Blood 04/18/2025 10:2 8 AM EDT 04/18/2025 10:30 AM EDT us Babar Pena MD LAB BLOOD BKR ORDERABLES Final Result [address] [address] * (ABNORMAL) PSA (screening) (04/18/2025 10:28 AM EDT) PSA 17.50(H) 0 - 4.00 ng/mL [facility] Comment: Test Methodology Maria C [id number] Patient results determined by assays using different manufacturers or methods may not be comparable. Blood 04/18/2025 10:2 8 AM EDT 04/18/2025 10:31 AM EDT us Mykel Stokes MD LAB BLOOD BKR ORDERABLES Final Result Performing Organization Address [facility]/ZIP Co de Phone Number [address] [address] * (ABNORMAL) Lipid panel (06/23/2024 5:27 AM EST) HDL 86 mg/dL [facility] Comment: Interpretation <40 mg/dL: Low HDL cholesterol (major risk factor for CHD) Greater than or equal to 60 mg/dL: High HDL cholesterol ( negative risk factor for CHD) HDL - cholesterol is affected by a number of factors, e.g. smoking, excerise, hormones, sex and age. CHOLESTEROL 224 0 - 240 mg/dL [facility] TRIGLYCERIDES 98 30 - 160 mg/dL [facility] LDL 118 50 - 129 mg/dL [facility] Comment: LDL levels in terms of risk for coronary heart disease: <100 mg/dL: Optimal 100-129 mg/dL: Near or above optimal 130-159 mg/dL: Borderline high 160-189 mg/dL: High >190 mg/dL: Very High CARDIAC RISK RATIO 2.6(L) 3.4 - 5.0 C [facility] Blood 06/23/2024 5:27 AM EST 06/23/2024 6:06 AM EST us Marge Duron NP LAB BLOOD BKR ORDERABLE S Final Result Performing Organization Address [facility]/ZIP Co de Phone Number [address] [address] from Last 3 Months or Most Recently Relevant to Health Maintenance Insurance [place] P[place] BLUE REPLACEMENT MEDICARE PPO BLUE REPLACEMENT MEDICARE PPO BLUE REPLACEMENT MEDICARE PPO BLUE REPLACEMENT MEDICARE PPO BLUE REPLACEMENT MEDICARE PPO BLUE REPLACEMENT MEDICARE PPO BLUE [place] [place] [address] MEDICARE PPO BLUE REPLACEMENT Advance Directives For more information, please contact: [phone] (9AM - 5PM [facility], Monday-Monday) Documents on File Type Date Recorded Patient Railroad Maintenance Clerk Expl anation Healthcare Proxy 06/24/2024 4:33 PM * Full Code (Latest Code Status on File) Date Activated Date Inactivated Comments 06/22/2024 1:48 PM Question Answer Comments Code Status Confirmed With: Patient Care Teams Fixed Wing Aircraft Flight Mechanic Relationship Specialty Start Date End Date Pcp, Unknown PCP - General 05/29/25 Jerome Jackson MD [address] [place] [address] [place] [address] [email or web address] Historical LMR Provider 05/18/17 Ynr Calderon DO [address] [place] [address] Historical LMR Provider 05/18/17 Lalo Hills MD [address] [place] [address] [email or web address] Historical LMR Provider 05/18/17 Additional Source Comments The information contained in this document represents components of the legal health record. It is not the complete legal health record.[facility]
--- OUTSIDE RECORDS SUMMARY | 2025-07-15 15:31 | XMS_ITS | Encounter Summary ---
Author Organization [facility] Address [address] [place] [address] [place] [address] Phone Care Team Providers Care Head Field Hockey Coach Name Role Phone Yrn Calderon DO Primary Care Provider Jerome Jackson MD Unavailable [phone] Yrn Calderon DO Unavailable Baljeet Alexander MD Unavailable [phone] Dianna London MD Unavailable Lalo Hills MD Unavailable [phone] Pcp, Unknown Primary Care Provider Unavailabl e Encounter Details Date Type Department Care Team (Latest Contact Info) Description 10/16/2017 Transcribe Orders [facility] Phleb Main [address] [place] [address] Yrn Calderon DO [address] [place], [place] [id number] Elevated PSA (Primary Dx) Social History Tobacco [...] PM EDT) PSA, TOTAL 15.4(H) <=6.5 ng/mL [facility] MED/[address] FREE PSA 2.8 ng/mL [facility] FREE/TOT PSA RATIO SEE NOTE ratio [facility] Comment: (NOTE) Ratio not calculated because clinical usefulness is not defined except in range of total PSA 4.0-10.0 ng/mL. ADDITIONAL INFORMATION The testing method is an electrochemiluminescence assay manufactured by [employer] and performed on the Modular or Vel system. Values obtained with different assay methods or kits may be different and cannot be used interchangeably. Test results cannot be interpreted as absolute evidence for the presence or absence of malignant disease. Blood 10/16/2017 12:0 4 PM EDT 10/16/2017 12:07 PM EDT us Yrn Calderon DO LAB BLOOD BKR ORDERABLES Fin al Result [facility] MED/[address] [employer] [address] [place] [address] documented in this encounter Visit Diagnoses Diagnosis Elevated PSA- Primary Elevated prostate specific antigen (PSA) documented in this encounter Care Teams Head Field Hockey Coach Relationship Specialty Start Date End Date Yrn Calderon DO [address] [place] [address] PCP - General Internal Medicine 01/15/15 05/28/25 Pcp, Unknown PCP - General 05/29/25 Jerome Jackson MD [address] [place] [address], [address] [place] [address] [email or web address] Historical LMR Provider 05/18/17 Yrn Calderon DO [address] [place] [address] Historical LMR Provider 05/18/17 Baljeet Alexander MD [address] [facility] [address] [place] [address] [email or web address] Historical LMR Provider 05/18/17 08/07/21 Dianna London MD [address] [place] [address] Orthopedics & Sports Medicine, [place] [address] [email or web address] Historical LMR Provider 05/18/17 08/07/21 Lalo Hills MD [address] [place] [address] 1 [place] [address] [email or web address] Historical LMR Provider 05/18/17 documented as of this encounter Additional Source Comments The information contained in this document represents components of the legal health record. It is not the complete legal health record.[facility]
--- OUTSIDE RECORDS SUMMARY | 2025-07-15 15:31 | XMS_ITS | Encounter Summary ---
Author Organization [facility] Address [address] [place] [address] [place] [address] Phone Care Team Providers Care Supervisor Housecleaner Name Role Phone Yrn Calderon DO Primary Care Provider Jerome Jackson MD Unavailable [phone] Yrn Calderon DO Unavailable [phone] Baljeet Alexander MD Unavailable Dianna London MD Unavailable [phone] Lalo Hills MD Unavailable [phone] Pcp, Unknown Primary Care Provider Unavailabl e Encounter Details Date Type Department Care Team (Latest Contact Info) Description 10/16/2017 Transcribe Orders [facility] Phleb Main [address] [place] [address] Lalo Hills MD [address] [phone] [email or web address] Pure hypercholesterolemia (Primary Dx) Social History Tobacco [...] ALKALINE PHOSPHATASE 62 39 - 117 U/L [facility] TOTAL BILIRUBIN 1.3(H) 0.0 - 1.2 mg/dL [facility] DIRECT BILIRUBIN <0.2 0 - 0.3 mg/dL [facility] Bilirubin (Indirect) NOT CALCULATED 0 - 1.5 mg/dL [facility] AST 30 0 - 37 U/L [facility] ALT 28 0 - 40 U/L [facility] TOTAL PROTEIN 7.3 6.5 - 8.0 g/dL [facility] ALBUMIN 4.5 3.9 - 4.8 g/dL [facility] GLOBULIN 2.8 1 - 4.8 g/dL [facility] A/G Ratio 1.61 1.00 - 4.80 RATIO [facility] Blood 10/16/2017 12:0 4 PM EDT 10/16/2017 12:08 PM EDT us Lalo Hills MD LAB BLOOD BKR ORDERABLES Final Result Performing Organization Address City/State/[facility] Co de Phone Number [address] [address] * (ABNORMAL) Basic metabolic panel (10/16/2017 12:04 PM EDT) SODIUM 142 133 - 146 mmol/L [facility] CHLORIDE 102 96 - 108 mmol/L [facility] POTASSIUM 4.5 3.3 - 5.1 mmol/L [facility] CO2 28 21 - 35 mmol/L [facility] BUN 21(H) 6 - 19 mg/dL [facility] CREATININE 1.00 0.5 - 1.5 mg/dL [facility] GLUCOSE 79 70 - 99 mg/dL [facility] CALCIUM 9.6 8.4 - 10.3 mg/dL [facility] EGFR 72 >59 mL/min/1.7 3m2 [facility] Comment:If patient is black, multiply result by 1.159. The eGFR calculation has changed from the MDRD equation to the CKD-EPI equation as of October 03, 2017. ANION GAP 17 10 - 20 mmol/L [facility] Blood 10/16/2017 12:0 4 PM EDT 10/16/2017 12:08 PM EDT us Lalo Hills MD LAB BLOOD BKR ORDERABLES Final Result Performing Organization Address [facility] Co de Phone Number [address] [address] * (ABNORMAL) Lipid panel (10/16/2017 12:04 PM EDT) HDL 101 mg/dL [facility] Comment: Interpretation: Risk Level Males Decreased >45 mg/dL Average 40-45 mg/dL Increased <40 mg/dL CHOLESTEROL 206 0 - 240 mg/dL [facility] TRIGLYCERIDES 68 30 - 160 mg/dL [facility] LDL 91 50 - 129 mg/dL [facility] Comment: LDL levels in terms of risk for coronary heart disease: <100 mg/dL: Optimal 100-129 mg/dL: Near or above optimal 130-159 mg/dL: Borderline high 160-189 mg/dL: High >190 mg/dL: Very High CARDIAC RISK RATIO 2.0(L) 3.4 - 5.0 [facility] Blood 10/16/2017 12:0 4 PM EDT 10/16/2017 12:08 PM EDT us Lalo Hills MD LAB BLOOD BKR ORDERABLES Final Result Performing Organization Address [facility] Co de Phone Number [address] [address] documented in this encounter Visit Diagnoses Diagnosis Pure hypercholesterolemia- Primary documented in this encounter Care Teams Supervisor Housecleaner Relationship Specialty Start Date End Date Yrn Calderon DO [address] [place] [address] PCP - General Internal Medicine 01/15/15 05/28/25 Pcp, Unknown PCP - General 05/29/25 Jerome Jackson MD 22 [facility], [address] [place] [address] [email or web address] Historical LMR Provider 05/18/17 Yrn Calderon DO [address] [place] [address] Historical LMR Provider 05/18/17 Baljeet Alexander MD 22 [facility] 301 [place] [address] [email or web address] Historical LMR Provider 05/18/17 08/07/21 Dianna London MD [address] [place] [address] Orthopedics & Sports Medicine, [place] [address] [email or web address] Historical LMR Provider 05/18/17 08/07/21 Lalo Hills MD [address] [place] [address] [email or web address] Historical LMR Provider 05/18/17 documented as of this encounter Additional Source Comments The information contained in this document represents components of the legal health record. It is not the complete legal health record.[facility]
--- OUTSIDE RECORDS SUMMARY | 2025-07-15 15:31 | XMS_ITS | Encounter Summary ---
Author Organization [facility] Address [address] [place] [address] [place] [address] Phone Care Team Providers Care Director School Of Nursing Name Role Phone Yrn Calderon DO Primary Care Provider Jerome Jackson MD Unavailable Yrn Calderon DO Unavailable Lalo Hills MD Unavailable [phone] Pcp, Unknown Primary Care Provider Unavailabl e Reason for Referral * MRI/CAT Scan - Closed Specialty Diagnoses / Procedures Referred By Controxane t Referred To Contact Radiology Diagnoses Bilateral hip pain Prostate cancer Procedures NM Bone Scan NM Bone Scan Yrn Calderon DO [address] [place] [address] Phone: tel: fax: Referral ID Status Reason Start Date Expiration Date Visits Re quested Visits Authorized [id number] Closed 06/08/2022 06/08/2023 2 2 Encounter Details Date Type Department Care Team (Late st Contact Info) Description 06/08/2022 Ancillary Orders Virtual Department 30 [place] [address] Yrn Calderon DO [address] [place], [place] [phone] Bilateral hip pain; Prostate cancer Social History [...] prostate documented in this encounter Care Teams Director School Of Nursing Relationship Specialty Start Date End Date Yrn Calderon DO [address] [place] [address] PCP - General Internal Medicine 01/15/15 05/28/25 Pcp, Unknown PCP - General 05/29/25 Jerome Jackson MD [address] [place] [address], [facility] 301 [place] [address] [email or web address] Historical LMR Provider 05/18/17 Yrn Calderon DO [address] [place] [address] Historical LMR Provider 05/18/17 Lalo Hills MD [address] [place] [address] [email or web address] Historical LMR Provider 05/18/17 documented as of this encounter Additional Source Comments The information contained in this document represents components of the legal health record. It is not the complete legal health record.[facility]
--- OUTSIDE RECORDS SUMMARY | 2025-07-15 15:31 | XMS_ITS | Encounter Summary ---
Author Organization [facility] Address [address] [place] [address] Phone Care Team Providers Care Collaborative Teacher Name Role Phone Yrn Calderon DO Primary Care Provider Jerome Jackson MD Unavailable [phone] Yrn Calderon DO Unavailable Lalo Hills MD Unavailable [phone] Pcp, Unknown Primary Care Provider Unavailabl e Encounter Details Date Type Department Care Team (Late st Contact Info) Description 06/22/2024 Procedure Pass [facility], [address] [address] Social History Tobacco Use Types Packs/Day Years [...] 06/22/2024 9:49 PM Nicho Rodriguez RN * [place] Suicide Severity Rating Scale (Screener/Recent Self-Report) Question Answer Date of Assessment Author 1. Wish to be (Past 1 Month) No 024 9:49 PM Nicho Rodriguez RN 2. Non-Specific Active Suici kirby Thoughts (Past 1 Month) No 06/22/2024 9:49 PM Bernabe Rodriguez RN 6. Suicidal Behavior (Lifetime) No 4 9:49 PM Nicho Rodriguez RN documented as of this encounter Plan of Treatment Not on file documented as of this encounter Visit Diagnoses Not on filedocumented in this encounter Care Teams Collaborative Teacher Relationship Specialty Start Date End Date Yrn Calderon DO [address] [place] [address] PCP - General Internal Medicine 01/15/15 05/28/25 Pcp, Unknown PCP - General 05/29/25 Jerome Jackson MD [address] [place] [address], [facility] 301 [place] [address] [email or web address] Historical LMR Provider 05/18/17 Yrn Calderon DO [address] [place] [address] Historical LMR Provider 05/18/17 Lalo Hills MD [address] [place] [address] [email or web address] Historical LMR Provider 05/18/17 documented as of this encounter Additional Source Comments The information contained in this document represents components of the legal health record. It is not the complete legal health record.[facility]
--- OUTSIDE RECORDS SUMMARY | 2025-07-15 15:31 | XMS_ITS | Encounter Summary ---
Author Organization [facility] Address [address] [place] [address] Phone Care Team Providers Care Certified Fraud Examiner Name Role Phone Yrn Calderon DO Primary Care Provider Jerome Jackson MD Unavailable [phone] Yrn Calderon DO Unavailable [phone] Lalo Hills MD Unavailable [phone] Pcp, Unknown Primary Care Provider Unavailabl e Encounter Details Date Type Department Care Team (Late st Contact Info) Description 06/22/2024 Procedure Pass [facility], Ct Scan - [address] [address] Social History Tobacco Use Types Packs/Day Years [...] 06/22/2024 9:49 PM Nicho Rodriguez RN * [place] Suicide Severity Rating Scale (Screener/Recent Self-Report) Question [...] on filedocumented in this encounter Care Teams Certified Fraud Examiner Relationship Specialty Start Date End Date Yrn Calderon DO [address] [place] [address] PCP - General Internal Medicine 01/15/15 05/28/25 Pcp, Unknown PCP - General 05/29/25 Jerome Jackson MD [address] [place] [address], [facility] 301 [place] [address] [email or web address] Historical LMR Provider 05/18/17 Yrn Calderon DO [address] [place] [address] Historical LMR Provider 05/18/17 Lalo Hills MD [address] [place] [address] [email or web address] Historical LMR Provider 05/18/17 documented as of this encounter Additional Source Comments The information contained in this document represents components of the legal health record. It is not the complete legal health record.[facility]
--- OUTSIDE RECORDS SUMMARY | 2025-07-15 15:31 | XMS_ITS | Encounter Summary ---
Author Organization [facility] Address [address] [place] [address] [place] [address] Phone Care Team Providers Care Facing Cutting Machine Operator Name Role Phone Yrn Calderon DO Primary Care Provider Jerome Jackson MD Unavailable Yrn Calderon DO Unavailable Baljeet Alexander MD Unavailable [phone] Dianna London MD Unavailable [phone] Lalo Hills MD Unavailable [phone] Pcp, Unknown Primary Care Provider Unavailabl e Encounter Details Date Type Department Care Team (Latest Contact Info) Description 02/26/2021 Transcribe Orders Virtual Department 30 [place] [address] Ester Khoury PA [address] [address] [email or web address] Hydrocele, unspecified hydrocele type (Primary Dx) Social [...] sub-5 mm nonobstructing calculi. Ester ARAYA [facility] Final Result documented in this encounter Visit Diagnoses Diagnosis Hydrocele, unspecified hydrocele type- Primary Hydrocele, unspecified hydrocele type documented in this encounter Care Teams Facing Cutting Machine Operator Relationship Specialty Start Date End Date Yrn Calderon DO [address] [place] [address] PCP - General Internal Medicine 01/15/15 05/28/25 Pcp, Unknown PCP - General 05/29/25 Jerome Jackson MD [address] [place] [address] [email or web address] Historical LMR Provider 05/18/17 Yrn Calderon DO [address] [place] [address] Historical LMR Provider 05/18/17 Baljeet Alexander MD [address] [place] [address] [email or web address] Historical LMR Provider 05/18/17 08/07/21 Dianna London MD [address] [place] [address] Orthopedics & Sports Medicine, [facility] [place] [address] Historical LMR Provider 05/18/17 08/07/21 Lalo Hills MD [address] [address] [email or web address] Historical LMR Provider 05/18/17 documented as of this encounter Additional Source Comments The information contained in this document represents components of the legal health record. It is not the complete legal health record.[facility]
--- OUTSIDE RECORDS SUMMARY | 2025-07-15 15:31 | XMS_ITS | Encounter Summary ---
Author Organization [facility] Address [facility]ly [facility] [employer] [facility] [address] [place] [address] Phone Care Team Providers Care Neonatal Surgeon Name Role Phone Yrn Calderon DO Primary Care Provider Jerome Jackson MD Unavailable Yrn Calderon DO Unavailable Lalo Hills MD Unavailable [phone] Pcp, Unknown Primary Care Provider Unavailabl e Encounter Details Date Type Department Care Team (Late st Contact Info) Description 05/25/2023 Ancillary Orders [facility], X-Ray - [address] [address] Yrn Calderon, DO [address] [place] [address] Acute pain of right knee Social History [...] knee documented in this encounter Care Teams Neonatal Surgeon Relationship Specialty Start Date End Date Yrn Calderon DO [address] [place] [address] PCP - General Internal Medicine 01/15/15 05/28/25 Pcp, Unknown PCP - General 05/29/25 Jerome Jackson MD [address] [place] [address], [facility] 301 [place] [address] Historical LMR Provider 05/18/17 Yrn Calderon DO [address] [place] [address] Historical LMR Provider 05/18/17 Lalo Hills MD [address] [place] [address] [email or web address] Historical LMR Provider 05/18/17 documented as of this encounter Additional Source Comments The information contained in this document represents components of the legal health record. It is not the complete legal health record.[facility]
--- OUTSIDE RECORDS SUMMARY | 2025-07-15 15:31 | XMS_ITS | Clinical Summary ---
Author Organization [address] [place] [address] [place] [address] Phone Care Team Providers Care Real Estate Agency Licensee Name Role Phone Yrn Calderon DO Primary Care Provider [phone] Allergies Active Allergy Reactions Criticality Noted Date [...] by mouth at bedtime as needed. Active apixaban (ELIQUIS) 5 mg tablet Take 1 tablet (5 mg total) by mouth 2 (two) times a day. 60 each 11 06/25/2025 Active Active Problems Problem Noted Date Diagnosed Date Encounter for loop recorder at end of battery li fe 08/07/2024 Atrial flutter 09/21/2020 Overview (07/16/2024): Paroxysmal atrial flutter and atrial [...] be a good candidate having an elevated [id number] score of 4 for age and prior [...] Encounters Date Type Department Care Team Description 07/04/2025 Telephone [facility] [address] [place] [address] Babar Pena MD 06/25/2025 Telephone [facility] [address] [place] [address] Babar Pena MD from Last 3 Months Social History Tobacco [...] Care Team (Late st Contact Info) Description 08/06/2025 8:10 AM EST Office Visit [facility] Cardiology [facility] [address] [facility] [address] [place] [address] Nury Barksdale NP [address] [place] [address] [place] [address] 2025 9:25 AM EST Office Visit [facility] [address] [facility] [address] [place] [address] Babar Pena MD [address] [place] [address] [place] [address] Health Maintenance Due Date Last Done Comments DTaP,Tdap,and Td Vaccines (1 - Tdap) 1959 RSV Immunization Adult Patients (1 - 1-dose 75+ series) 2015 Falls Risk Assessment 06/28/2022 Medicare Annual Wellness Visit 06/28/2022 Social Influencers of Health Screening 06/28/2022 Depression Screening 07/31/2024 COVID-19 Vaccine ( - season) 2025 10/31/2020, 09/07/2020 Influenza Vaccine (#1) 2025 3, 05/20/2021, 05/04/2020, Additional history exists Cholesterol Screening [...] this topic Medical Devices Implanted Type Area Cad Librarian Device Identifier Shelf Expiration Date Model / Serial / Lot Medt-Card [id number] Implanted:09/28 (Quantity not on file) Cardiac Loop Recorder [employer] - CARDIAC RHYTH-CRDM [id number] / [id number] / Procedures Procedure Name Priority Date/Time Associated [...] [place]OSS - [place] MEDIC[place] ADVANTAGE Care Teams Real Estate Agency Licensee Relationship Specialty Start Date End Date Yrn Calderon DO [address] [place] [phone] PCP - General Internal Medicine 08/26/20
--- OUTSIDE RECORDS SUMMARY | 2025-07-15 15:31 | XMS_ITS | Encounter Summary ---
Author Organization [facility] Address [address] [place] [address] [place] [address] Phone Care Team Providers Care Boring Machine Operator Name Role Phone Yrn Calderon DO Primary Care Provider Jerome Jackson MD Unavailable Yrn Calderon DO Unavailable Baljeet Alexander MD Unavailable [phone] Dianna London MD Unavailable Lalo Hills MD Unavailable [phone] Pcp, Unknown Primary Care Provider Unavailabl e Encounter Details Date Type Department Care Team (Latest Contact Info) Description 11/05/2018 Transcribe Orders [address] [address] Marco A Jalloh MD [address] [place] [address], [address] [place] [address] [email or web address] Malignant neoplasm of prostate (Primary Dx) Social [...] EDT) PSA 11.55(H) 0 - 4.00 ng/mL [facility] Blood 11/05/2018 12:3 1 PM EDT 11/05/2018 12:34 PM EDT us Marco A Jalloh MD LAB BLOOD BKR ORDERABLES Final Result [facility] [address] [place] [address] documented in this encounter Visit Diagnoses Diagnosis Malignant neoplasm of prostate- Primary documented in this encounter Care Teams Boring Machine Operator Relationship Specialty Start Date End Date Yrn Calderon DO [address] [place] [address] PCP - General Internal Medicine 01/15/15 05/28/25 Pcp, Unknown PCP - General 05/29/25 Jerome Jackson MD [address] [place] [address] [email or web address] Historical LMR Provider 05/18/17 Yrn Calderon DO [address] [place] [address] Historical LMR Provider 05/18/17 Baljeet Alexander MD [address] [place] [address] [email or web address] Historical LMR Provider 05/18/17 08/07/21 Dianna London MD [address] [place] [address] Orthopedics & Sports Medicine, [facility] [place] [address] [email or web address] Historical LMR Provider 05/18/17 08/07/21 Lalo Hills MD [address] [place] [address] [email or web address] Historical LMR Provider 05/18/17 documented as of this encounter Additional Source Comments The information contained in this document represents components of the legal health record. It is not the complete legal health record.[facility]
--- OUTSIDE RECORDS SUMMARY | 2025-07-15 15:31 | XMS_ITS | Encounter Summary ---
Author Organization [facility] Address [address] [place] [address] [place] [address] Phone Care Team Providers Care Epidemiology Intern Name Role Phone Yrn Calderon DO Primary Care Provider Jerome Jackson MD Unavailable [phone] Yrn Calderon DO Unavailable [phone] Baljeet Alexander MD Unavailable [phone] Dianna London MD Unavailable Lalo Hills MD Unavailable [phone] Pcp, Unknown Primary Care Provider Unavailabl e Reason for Referral * Speech Therapy (Routine) - Closed Specialty Diagnoses / Procedures Referred By David t Referred To Contact Speech Pathology Yrn Calderon DO [address] [place] [address] Phone: tel: fax: [employer] [address] [place] [address] Phone: tel: Referral ID Status Reason Start Date Expiration Date Visits Re quested Visits Authorized [id number] Closed 12/19/2019 12/18/2020 99 99 Encounter Details Date Type Department Care Team (Latest Contact Info) Description 12/19/2019 Transcribe Orders [facility] [address] [place] [address] Yrn Calderon DO [address] [place] [address] Encounter for rehabilitation (Primary Dx) Social History [...] Associated Diagnoses Order Schedule Ambulatory referral to [facility] Speech Language Pathology Outpatient Referral Routine Ordered: 12/19/2019 documented as of this encounter Visit Diagnoses Diagnosis Encounter for rehabilitation- Primary documented in this encounter Care Teams Epidemiology Intern Relationship Specialty Start Date End Date Yrn Calderon DO [address] [place] [address] PCP - General Internal Medicine 01/15/15 05/28/25 Pcp, Unknown PCP - General 05/29/25 Jerome Jackson MD [address] [place] [address] [email or web address] Historical LMR Provider 05/18/17 Yrn Calderon DO [address] [place] [address] Historical LMR Provider 05/18/17 Baljeet Alexander MD [address] [place] [address] [email or web address] Historical LMR Provider 05/18/17 08/07/21 Dianna London MD [address] [place] [address] Orthopedics & Sports Medicine, [facility] [place] [address] [email or web address] Historical LMR Provider 05/18/17 08/07/21 Lalo Hills MD [address] [place] [address] [email or web address] Historical LMR Provider 05/18/17 documented as of this encounter Additional Source Comments The information contained in this document represents components of the legal health record. It is not the complete legal health record.[facility]
== END 2025-07-15 12:12 | disposition home or self-care (01) ==
LOC: HO.HMCSH 11:42
PROVIDERS: PCP Internal Medicine; Visit Provider Internal Medicine
DX: Z23 Encounter for immunization (principal); J84.9 Interstitial pulmonary disease, unspecified

== ENCOUNTER → 2025-07-15 11:42 | Outpatient (BNVA) | payer MEDICARE, SELFPAY | PROVIDERS: PCP Internal Medicine; Visit Provider Internal Medicine | DX: Z28.89 Immunization not carried out for other reason (principal); J84.9 Interstitial pulmonary disease, unspecified | CPT/HCPCS: 90471; 96127; 99212 ==